=== PATIENT | male | born 1945 | race Caucasian/White ===

== ENCOUNTER 2018-04-13 08:30 | Outpatient (RCR) | payer MEDICARE, OTHER, SELFPAY ==
--- NOTE | 2018-03-28 14:00 | PTTR_ITS ---
DATE: 03/28/18 SUBJECTIVE: Pt states that he is doing ok for the most part and noticing some significant benefit from the stretches. But he does still have some hip pain that he would like addressed. OBJECTIVE: Manual therapy: ([id number]). Pt placed in the (L) side lying position and gently mobilized through the distal and mid ITB with myofascial release techniques utilizing IASTM, long brush strokes working with the grain of the collagen fibers. Then directly over the greater trochanter a star stroke technique utilizing gentle brush strokes with cross grain fiber orientation utilized for decreasing sensitivity with mechanoreceptor stimulation and then more focused posterior greater trochanter approach with deeper fiber penetration for actual muscle tension release. Pt tolerates tx well. Direct treatment time: 25 minutes Total treatment time: 25 minutes
--- NOTE | 2018-04-13 11:59 | PTTR_ITS ---
DATE: 04/13/18 SUBJECTIVE: I am doing okay for the most part. OBJECTIVE: Manual therapy: ([id number]): Patient was placed in supine and guided through gentle traction through the lower extremity. He was then guided through sidelying hip extension coordinated with knee flexion. While maintaining sidelying patient was mobilized with gentle IASTM with down regulation to decrease muscle tension through the TFL, proximal hip rectus femoris utilizing long brush strokes. Gentle cross grain fiber strokes were performed for further desensitization over the posterior surface of the greater trochanter. Patient tolerated treatment well. Direct treatment time: 30 minutes of direct patient care.
== END 2018-04-22 23:59 | disposition home or self-care (01) ==
LOC: PT 08:30
PROVIDERS: PCP Nurse Practitioner; Referring Provider Nurse Practitioner; Visit Provider Nurse Practitioner
DX: M54.31 Sciatica, right side (principal); M79.651 Pain in right thigh; M53.86 Other specified dorsopathies, lumbar region
CPT/HCPCS: 97140

== ENCOUNTER 2018-04-22 11:29 | Outpatient (RCR) | payer SELFPAY | END 2018-04-22 23:59 | disposition home or self-care (01) | LOC: CR 11:29 | PROVIDERS: PCP Nurse Practitioner; Visit Provider Family Medicine | DX: M54.31 Sciatica, right side (principal); M79.651 Pain in right thigh; M53.86 Other specified dorsopathies, lumbar region | CPT/HCPCS: S9472 ==

== ENCOUNTER 2018-05-13 13:13 | Outpatient (RCR) | payer SELFPAY | END 2018-05-22 23:59 | disposition home or self-care (01) | LOC: CR 13:13 | PROVIDERS: PCP Nurse Practitioner; Visit Provider Family Medicine | DX: Z51.89 Encounter for other specified aftercare (principal) | CPT/HCPCS: S9472 ==

== ENCOUNTER 2018-06-09 02:29 | Outpatient (CLI) | payer MEDICARE, OTHER, SELFPAY ==
[2018-06-09 08:46] LABS: Abs Immature Grans 0.03 k/cumm (0.0-0.09); Absolute Basophil Count 0.02 k/cumm (0.0-0.2); Absolute Eosinophil Count 0.11 k/cumm (0.0-0.7); Absolute Lymphocyte Count 1.16 k/cumm (1.2-3.4); Absolute Monocyte Count 0.55 k/cumm (0.11-0.7); Absolute Neutrophil Count 6.12 k/cumm (1.2-6.7); Basophils % 0.3; Eosinophils % 1.4; HCT 33.8 % (40.0-50.0); HGB 11.2 g/dL (13.5-17.5); Immature Grans % 0.4; Lymphocytes % 14.5; Mean Corp. HGB Concentration 33.1 g/dL (32.0-36.0); Mean Corpuscular Hemoglobin 31.2 pg (27.0-33.0); Mean Corpuscular Volume 94.2 fL (80-95); Mean Platelet Volume 9.9 fL (8.0-11.0); Monocytes % 6.9; Neutrophils % 76.5; Platelet Count 206 x1000/uL (130-400); RBC 3.59 m/cumm (4.50-6.00); White Blood Cell Count 7.99 k/cumm (4.4-10.8)
== END 2018-06-09 02:49 ==
PROVIDERS: PCP Nurse Practitioner; Visit Provider Nurse Practitioner Adult Health
DX: K50.919 Crohn's disease, unspecified, with unspecified complications (principal); K62.5 Hemorrhage of anus and rectum
CPT/HCPCS: 36415; 85025

== ENCOUNTER 2018-06-21 08:59 | Outpatient (CLI) | payer MEDICARE, OTHER, SELFPAY ==
[2018-06-21 10:56] LABS: HCT 32.4 % (40.0-50.0); HGB 10.4 g/dL (13.5-17.5); Mean Corp. HGB Concentration 32.1 g/dL (32.0-36.0); Mean Corpuscular Hemoglobin 30.6 pg (27.0-33.0); Mean Corpuscular Volume 95.3 fL (80-95); Mean Platelet Volume 9.4 fL (8.0-11.0); Platelet Count 303 x1000/uL (130-400); RBC Distribution Width 14.9 % (11.8-14.1); White Blood Cell Count 8.18 k/cumm (4.4-10.8)
[2018-06-21 11:46] LABS: Iron 34 ug/dL (50-175); Total Iron Binding Capacity 405 ug/dL (250-450); Transferrin Sat 8 % (20-55)
[2018-06-21 12:03] LABS: Ferritin 29 ng/mL (8-388)
== END 2018-06-21 09:19 ==
PROVIDERS: PCP Nurse Practitioner; Visit Provider Nurse Practitioner
DX: D50.9 Iron deficiency anemia, unspecified (principal); K92.2 Gastrointestinal hemorrhage, unspecified
CPT/HCPCS: 36415; 85027; 82728; 83540; 83550

== ENCOUNTER 2018-06-22 07:00 | Outpatient (RCR) | payer SELFPAY | END 2018-06-22 23:59 | disposition home or self-care (01) | LOC: CR 07:00 | PROVIDERS: PCP Nurse Practitioner; Visit Provider Family Medicine | DX: Z51.89 Encounter for other specified aftercare (principal) | CPT/HCPCS: S9472 ==

== ENCOUNTER 2018-07-22 13:23 | Outpatient (RCR) | payer SELFPAY | END 2018-07-22 23:59 | disposition home or self-care (01) | LOC: CR 13:23 | PROVIDERS: PCP Nurse Practitioner; Visit Provider Family Medicine | DX: Z51.89 Encounter for other specified aftercare (principal) | CPT/HCPCS: S9472 ==

== ENCOUNTER 2018-08-22 12:48 | Outpatient (RCR) | payer SELFPAY | END 2018-08-22 23:59 | disposition home or self-care (01) | LOC: CR 12:48 | PROVIDERS: PCP Nurse Practitioner; Visit Provider Family Medicine | DX: Z51.89 Encounter for other specified aftercare (principal) | CPT/HCPCS: S9472 ==

== ENCOUNTER 2018-08-29 13:17 | Outpatient (RCR) | payer SELFPAY | END 2018-09-22 23:59 | disposition home or self-care (01) | LOC: CR 13:17 | PROVIDERS: PCP Nurse Practitioner; Visit Provider Family Medicine | DX: Z51.89 Encounter for other specified aftercare (principal) | CPT/HCPCS: S9472 ==

== ENCOUNTER 2018-08-31 10:17 | Inpatient (IN) | payer MEDICARE, OTHER, SELFPAY ==
[2018-08-31] VITALS (42 sets, daily range): BP systolic 107–145; BP diastolic 60–116; PULSE 59–79; RESP 12–26; TEMP 36.4–37; O2SAT 89–100
--- NOTE | 2018-08-31 10:43 | W.ED.GENAD ---
Discharge Plan Disposition Patient Disposition: [facility] INPATIENT Condition: Stable Discharge Details Chief Complaint: GI Bleed Clinical Impression: Acute lower GI bleeding Primary Care Provider: Ashley Haro ED Provider: Andre Reeder Home Meds and New Rx's Prescriptions: No Action trazodone 50 mg tablet 50 mg PO PRN Qty: 90 RF: 3 metoprolol succinate 50 mg tablet extended release 24 hr 75 mg PO DAILY Qty: 135 RF: 3 multivitamin [Daily Multi-Vitamin] 1 EACH tablet 1 ea PO DAILY RF: 0 ferrous sulfate 324 MG tablet,delayed release (DR/EC) 324 mg PO BID Qty: 60 RF: 3 mesalamine [Lialda] 1.2 GM tablet,delayed release (DR/EC) 2.4 g PO DAILY RF: 0 clopidogrel [Plavix] 75 MG tablet 75 mg PO DAILY Qty: 90 RF: 3 Culturelle 1 EACH capsule 1 ea PO DAILY Qty: 100 RF: 6 atorvastatin 80 MG tablet 80 mg PO DAILY Qty: 90 RF: 3 bupropion HCl 75 MG tablet 150 mg PO DAILY Qty: 180 RF: 3 isosorbide mononitrate 30 mg tablet extended release 24 hr 30 mg PO DAILY RF: 0 spironolactone 25 mg tablet 12.5 mg PO DAILY Qty: 45 RF: 3 esomeprazole magnesium [Nexium] 20 mg capsule,delayed release(DR/EC) 20 mg PO DAILY RF: 0 furosemide 20 mg tablet 20 mg PO DAILY Qty: 90 RF: 3 tacrolimus 0.1 % ointment 1 applic TP BID RF: 0 Medical Decision Making 73-year-old male with a history of coronary artery disease, paroxysmal atrial fibrillation, as well as recurrent GI bleeds that most recently were diverticular in nature upon admission in May to [facility]. He is scheduled for a watchman's procedure to ablate his left atrial appendage tomorrow at [facility]. He states this morning he awoke and developed 5 episodes of bright bloody stools. Minimal weakness and lightheadedness, denied of a syncopal event. He denies chest pain. He is afebrile with a pulse of 79 and blood pressure 120/76. Exam reveals guaiac positive bloody stool. IV placed, labs, type and screen, screening EKG obtained. She has a normal hematocrit and is not had any further bright red blood per rectum. I discussed the case with on-call cardiology at [facility], Ms. Cait Martinez on the behalf of Dr. Nino who states the patient should have his watchman's procedure scheduled for tomorrow deferred, but she recommends continuing Plavix. Patient is been previously known to Dr Stevens of [facility]; case discused with Dr Holder who recommends admission, trending of the hematocrit, consideration of preparation for colonoscopy as per routine care of lower GI bleed. Medical Records Medical records reviewed: Yes I reviewed the patient's medical records. Lab Data Lab results reviewed: Yes I reviewed the patient's lab results. Laboratory Results - last 24 hr 08/31/18 08/31/18 08/31/18 10:58 10:58 10:58 WBC 8.54 RBC 4.54 Hgb 13.9 Hct 41.7 MCV 91.9 MCH 30.6 MCHC 33.3 RDW 13.5 Plt Count 210 MPV 10.5 Immature Gran % 0.1 Neutrophils % 70.0 Lymphocytes % 18.6 Monocytes % 8.9 Eosinophils % 1.8 Basophils % 0.6 Absolute Neutrophils 5.98 Absolute Lymphocytes 1.59 Absolute Monocytes 0.76 H Absolute Eosinophils 0.15 Absolute Basophils 0.05 PT 10.0 INR 1.0 Sodium 138 Potassium 4.3 Chloride 102 Carbon Dioxide 27.5 Anion Gap 8.5 BUN 28 H Creatinine 1.28 Estimated GFR/1.73 m2 55.09 Glucose 110 H Calcium 9.6 Magnesium 1.7 L Total Bilirubin 0.4 AST 31 ALT 45 Alkaline Phosphatase 122 H Troponin I 0.03 Total Protein 7.4 Albumin 3.5 ECG Data Attestation: I personally reviewed and interpreted this ECG (s) as follows: Interpretation: Normal sinus rhythm, rate of 60, no ST segment elevation. There is T wave inversions present in the lateral leads similar to June 13, 2018 HPI General Mode of arrival: ambulatory. Date/Time Provider Initiated Documentation: 08/31/18 10:20. Limitations to Documentation: no limitations. Information obtained by: patient. History of Present Illness 73 year old M presents to the emergency department with the chief complaint of I am having a GI bleed with 5 bloody stool, described as moderate, and is localized to the abdomen. Patient reports no radiation. Patient started experiencing this hour(s) and it has been intermittent. No relieving factors improve symptom(s), No exacerbating factors reported . Patient notes malaise and weakness; denies chest pain, cough, nausea/vomiting and syncope. Patient did receive the following treatments prior to arrival, none Related Data Home Medications Medication Instructions Recorded Confirmed multivitamin [Daily Multi-Vitamin] 1 ea PO DAILY 07/14/16 08/31/18 ferrous sulfate 324 mg PO BID #60 tab 10/28/16 08/31/18 mesalamine [Lialda] 2.4 g PO DAILY tab-cap 01/08/08/31/18 clopidogrel [Plavix] 75 mg PO DAILY #90 tab 09/21/17 08/31/18 Lactobacillus rhamnosus GG 1 ea PO DAILY #100 tab-cap 12/23/17 08/31/18 [Culturelle] atorvastatin 80 mg PO DAILY #90 tab-cap 03/28/18 08/31/18 bupropion HCl 150 mg PO DAILY #180 tab-cap 03/28/18 08/31/18 trazodone 50 mg tablet 50 mg PO PRN #90 tab 06/15/18 08/31/18 isosorbide mononitrate ER 30 mg 30 mg PO DAILY 06/24/18 08/31/18 tablet,extended release 24 hr metoprolol succinate ER 50 mg 75 mg PO DAILY #135 tab 07/05/18 08/31/18 tablet,extended release 24 hr spironolactone 25 mg tablet 12.5 mg PO DAILY #45 tab-cap 07/06/18 08/31/18 esomeprazole magnesium 20 mg 20 mg PO DAILY cap 07/25/18 08/31/18 capsule,delayed release furosemide 20 mg tablet 20 mg PO DAILY #90 tab 07/28/18 08/31/18 tacrolimus 0.1 % topical ointment 1 applic TP BID 08/02/18 08/31/18 Previous Rx's Medication Instructions Recorded clopidogrel [Plavix] 75 mg PO DAILY #90 tab 09/21/17 Lactobacillus rhamnosus GG 1 ea PO DAILY #100 tab-cap 12/23/17 [Culturelle] atorvastatin 80 mg PO DAILY #90 tab-cap 03/28/18 bupropion HCl 150 mg PO DAILY #180 tab-cap 03/28/18 trazodone 50 mg tablet 50 mg PO PRN #90 tab 06/15/18 metoprolol succinate ER 50 mg 75 mg PO DAILY #135 tab 07/05/18 tablet,extended release 24 hr spironolactone 25 mg tablet 12.5 mg PO DAILY #45 tab-cap 07/06/18 furosemide 20 mg tablet 20 mg PO DAILY #90 tab 07/28/18 Allergies Allergy/AdvReac Type Severity Reaction Status Date / Time morphine AdvReac Severe flashbacks Verified 08/31/18 10:45 from [place] sulfamethoxazole AdvReac Intermediate arthralgia, Verified 08/31/18 10:45 [From Bactrim] myalgia, sweats trimethoprim [From Bactrim] AdvReac Intermediate arthralgia, Verified 08/31/18 10:45 myalgia, sweats NSAIDS (Non-Steroidal AdvReac GI Bleeding Verified 08/31/18 10:45 Anti-Inflamma General Stated Complaint: GI Bleed [place]: 2 Review of Systems Review of Systems 8 systems reviewed and otherwise negative [facility] Surgical History Colonoscopy (01/24/15) Endoscopy Implantation of automatic cardioverter/defibrillator, total system (AICD) (06/22/16) Implantation of automatic cardioverter/defibrillator, total system (AICD) (06/24/16) Pacemaker (07/04/16) Prostate Biopsy with imaging guidance (03/12/14) Replacement of total knee joint (~2007) Video Capsule Endoscopy (03/29/17) cardiac catheterization (06/22/16) paraesophageal diaphramtic hernia repair (02/20/18) Family History Mother Neoplasm Father No problems noted. Sister Alcohol abuse Sister No problems noted. Brother No problems noted. Social History Smoking/Tobacco Use Status: Former Tobacco Use Exam Narrative Exam Narrative: GEN: awake, alert, oriented 3. Pleasant, well groomed, interactive. HEAD: Normocephalic, atraumatic ENT: Mucous membranes moist, oropharynx unremarkable, External ear exam unremarkable EYES: PERRL, EOMI NECK: Full ROM, no HI, no menigismus CHEST/RESP: Nontender, clear to auscultation bilateral, no wheeze/rhonchi/rales CARDIOVASCULAR: RRR, no murmur, rub crow. 2+ Rad pulse bilateral ABDOMEN: Soft, nontender, no mass. +Bowel sounds. Normal rectal tone, bloody stool that is guaiac positive and no masses on rectal exam EXT: Full ROM, no edema, no rash Neuro: Grossly normal neurologic exam, conversant, interactive. Psych: Speech fluent, thoughts congruent, affect normal Course Vital Signs Temperature 36.4 C L 08/31/18 10:21 Pulse 79 08/31/18 10:21 Respiratory Rate 16 08/31/18 10:21 Blood Pressure 120/76 08/31/18 10:21 Pulse Oximetry 95 08/31/18 10:21 Temperature 36.4 C L 08/31/18 10:21 Temperature Source Skin 08/31/18 10:21 Pulse 79 08/31/18 10:21 Respiratory Rate 16 08/31/18 10:21 Blood Pressure 120/76 08/31/18 10:21 Pulse Oximetry 95 08/31/18 10:21 Oxygen Delivery Method Room Air 08/31/18 10:21 Oxygen Flow Rate 0 08/31/18 10:21 Pain Level 0 08/31/18 10:21
--- NOTE | 2018-08-31 10:46 | ED.GENADUL_ITS ---
Discharge Plan Disposition Patient Disposition: [facility] INPATIENT Condition: Stable Discharge Details Chief Complaint: GI Bleed Clinical Impression: Acute lower GI bleeding Primary Care Provider: Ashley Haro ED Provider: Andre Reeder Home Meds and New Rx's Prescriptions: No Action trazodone 50 mg tablet 50 mg PO PRN Qty: 90 RF: 3 metoprolol succinate 50 mg tablet extended release 24 hr 75 mg PO DAILY Qty: 135 RF: 3 multivitamin [Daily Multi-Vitamin] 1 EACH tablet 1 ea PO DAILY RF: 0 ferrous sulfate 324 MG tablet,delayed release (DR/EC) 324 mg PO BID Qty: 60 RF: 3 mesalamine [Lialda] 1.2 GM tablet,delayed release (DR/EC) 2.4 g PO DAILY RF: 0 clopidogrel [Plavix] 75 MG tablet 75 mg PO DAILY Qty: 90 RF: 3 Culturelle 1 EACH capsule 1 ea PO DAILY Qty: 100 RF: 6 atorvastatin 80 MG tablet 80 mg PO DAILY Qty: 90 RF: 3 bupropion HCl 75 MG tablet 150 mg PO DAILY Qty: 180 RF: 3 isosorbide mononitrate 30 mg tablet extended release 24 hr 30 mg PO DAILY RF: 0 spironolactone 25 mg tablet 12.5 mg PO DAILY Qty: 45 RF: 3 esomeprazole magnesium [Nexium] 20 mg capsule,delayed release(DR/EC) 20 mg PO DAILY RF: 0 furosemide 20 mg tablet 20 mg PO DAILY Qty: 90 RF: 3 tacrolimus 0.1 % ointment 1 applic TP BID RF: 0 Medical Decision Making 73-year-old male with a history of coronary artery disease, paroxysmal atrial fibrillation, as well as recurrent GI bleeds that most recently were diverticular in nature upon admission in May to [facility]. He is scheduled for a watchman's procedure to ablate his left atrial appendage tomorrow at [facility]. He states this morning he awoke and developed 5 episodes of bright bloody stools. Minimal weakness and lightheadedness, denied of a syncopal event. He denies chest pain. He is afebrile with a pulse of 79 and blood pressure 120/76. Exam reveals guaiac positive bloody stool. IV placed, labs, type and screen, screening EKG obtained. She has a normal hematocrit and is not had any further bright red blood per rectum. I discussed the case with on-call cardiology at [facility], Ms. Cait Martinez on the behalf of Dr. Nino who states the patient should have his watchman's procedure scheduled for tomorrow deferred, but she recommends continuing Plavix. Patient is been previously known to Dr Stevens of [facility]; case discused with Dr Holder who recommends admission, trending of the hematocrit, consideration of preparation for colonoscopy as per routine care of lower GI bleed. Medical Records Medical records reviewed: Yes I reviewed the patient's medical records. Lab Data Lab results reviewed: Yes I reviewed the patient's lab results. Laboratory Results - last 24 hr 08/31/18 08/31/18 08/31/18 10:58 10:58 10:58 WBC 8.54 RBC 4.54 Hgb 13.9 Hct 41.7 MCV 91.9 MCH 30.6 MCHC 33.3 RDW 13.5 Plt Count 210 MPV 10.5 Immature Gran % 0.1 Neutrophils % 70.0 Lymphocytes % 18.6 Monocytes % 8.9 Eosinophils % 1.8 Basophils % 0.6 Absolute Neutrophils 5.98 Absolute Lymphocytes 1.59 Absolute Monocytes 0.76 H Absolute Eosinophils 0.15 Absolute Basophils 0.05 PT 10.0 INR 1.0 Sodium 138 Potassium 4.3 Chloride 102 Carbon Dioxide 27.5 Anion Gap 8.5 BUN 28 H Creatinine 1.28 Estimated GFR/1.73 m2 55.09 Glucose 110 H Calcium 9.6 Magnesium 1.7 L Total Bilirubin 0.4 AST 31 ALT 45 Alkaline Phosphatase 122 H Troponin I 0.03 Total Protein 7.4 Albumin 3.5 ECG Data Attestation: I personally reviewed and interpreted this ECG (s) as follows: Interpretation: Normal sinus rhythm, rate of 60, no ST segment elevation. There is T wave inversions present in the lateral leads similar to June 13, 2018 HPI General Mode of arrival: ambulatory . Date/Time Provider Initiated Documentation: 08/31/18 10:20 . Limitations to Documentation: no limitations . Information obtained by: patient . History of Present Illness 73 year old M presents to the emergency department with the chief complaint of I am having a GI bleed with 5 bloody stool, described as moderate, and is localized to the abdomen. Patient reports no radiation. Patient started experiencing this hour(s) and it has been intermittent. No relieving factors improve symptom(s), No exacerbating factors reported . Patient notes malaise and weakness; denies chest pain, cough, nausea/vomiting and syncope. Patient did receive the following treatments prior to arrival, none Related Data Home Medications Medication Instructions Recorded Confirmed multivitamin [Daily Multi-Vitamin] 1 ea PO DAILY 07/14/16 08/31/18 ferrous sulfate 324 mg PO BID #60 tab 10/28/16 08/31/18 mesalamine [Lialda] 2.4 g PO DAILY tab-cap 01/08/08/31/18 clopidogrel [Plavix] 75 mg PO DAILY #90 tab 09/21/17 08/31/18 Lactobacillus rhamnosus GG 1 ea PO DAILY #100 tab-cap 12/23/17 08/31/18 [Culturelle] atorvastatin 80 mg PO DAILY #90 tab-cap 03/28/18 08/31/18 bupropion HCl 150 mg PO DAILY #180 tab-cap 03/28/18 08/31/18 trazodone 50 mg tablet 50 mg PO PRN #90 tab 06/15/18 08/31/18 isosorbide mononitrate ER 30 mg 30 mg PO DAILY 06/24/18 08/31/18 tablet,extended release 24 hr metoprolol succinate ER 50 mg 75 mg PO DAILY #135 tab 07/05/18 08/31/18 tablet,extended release 24 hr spironolactone 25 mg tablet 12.5 mg PO DAILY #45 tab-cap 07/06/18 08/31/18 esomeprazole magnesium 20 mg 20 mg PO DAILY cap 07/25/18 08/31/18 capsule,delayed release furosemide 20 mg tablet 20 mg PO DAILY #90 tab 07/28/18 08/31/18 tacrolimus 0.1 % topical ointment 1 applic TP BID 08/02/18 08/31/18 Previous Rx's Medication Instructions Recorded clopidogrel [Plavix] 75 mg PO DAILY #90 tab 09/21/17 Lactobacillus rhamnosus GG 1 ea PO DAILY #100 tab-cap 12/23/17 [Culturelle] atorvastatin 80 mg PO DAILY #90 tab-cap 03/28/18 bupropion HCl 150 mg PO DAILY #180 tab-cap 03/28/18 trazodone 50 mg tablet 50 mg PO PRN #90 tab 06/15/18 metoprolol succinate ER 50 mg 75 mg PO DAILY #135 tab 07/05/18 tablet,extended release 24 hr spironolactone 25 mg tablet 12.5 mg PO DAILY #45 tab-cap 07/06/18 furosemide 20 mg tablet 20 mg PO DAILY #90 tab 07/28/18 Allergies Allergy/AdvReac Type Severity Reaction Status Date / Time morphine AdvReac Severe flashbacks Verified 08/31/18 10:45 from [place] sulfamethoxazole AdvReac Intermediate arthralgia, Verified 08/31/18 10:45 [From Bactrim] myalgia, sweats trimethoprim [From Bactrim] AdvReac Intermediate arthralgia, Verified 08/31/18 10:45 myalgia, sweats NSAIDS (Non-Steroidal AdvReac GI Bleeding Verified 08/31/18 10:45 Anti-Inflamma General Stated Complaint: GI Bleed [place]: 2 Review of Systems Review of Systems 8 systems reviewed and otherwise negative COUNT INCLUDES [facility] Surgical History Colonoscopy (01/24/15) Endoscopy Implantation of automatic cardioverter/defibrillator, total system (AICD) (06/22/16) Implantation of automatic cardioverter/defibrillator, total system (AICD) (06/24/16) Pacemaker (07/04/16) Prostate Biopsy with imaging guidance (03/12/14) Replacement of total knee joint (~2007) Video Capsule Endoscopy (03/29/17) cardiac catheterization (06/22/16) paraesophageal diaphramtic hernia repair (02/20/18) Family History Mother Neoplasm Father No problems noted. Sister Alcohol abuse Sister No problems noted. Brother No problems noted. Social History Smoking/Tobacco Use Status: Former Tobacco Use Exam Narrative Exam Narrative: GEN: awake, alert, oriented 3. Pleasant, well groomed, interactive. HEAD: Normocephalic, atraumatic ENT: Mucous membranes moist, oropharynx unremarkable, External ear exam unremarkable EYES: PERRL, EOMI NECK: Full ROM, no HI, no menigismus CHEST/RESP: Nontender, clear to auscultation bilateral, no wheeze/rhonchi/rales CARDIOVASCULAR: RRR, no murmur, rub crow. 2+ Rad pulse bilateral ABDOMEN: Soft, nontender, no mass. +Bowel sounds. Normal rectal tone, bloody stool that is guaiac positive and no masses on rectal exam EXT: Full ROM, no edema, no rash Neuro: Grossly normal neurologic exam, conversant, interactive. Psych: Speech fluent, thoughts congruent, affect normal Course Vital Signs Temperature 36.4 C L 08/31/18 10:21 Pulse 79 08/31/18 10:21 Respiratory Rate 16 08/31/18 10:21 Blood Pressure 120/76 08/31/18 10:21 Pulse Oximetry 95 08/31/18 10:21 Temperature 36.4 C L 08/31/18 10:21 Temperature Source Skin 08/31/18 10:21 Pulse 79 08/31/18 10:21 Respiratory Rate 16 08/31/18 10:21 Blood Pressure 120/76 08/31/18 10:21 Pulse Oximetry 95 08/31/18 10:21 Oxygen Delivery Method Room Air 08/31/18 10:21 Oxygen Flow Rate 0 08/31/18 10:21 Pain Level 0 08/31/18 10:21
[2018-08-31] MEDS: Normal Saline 1,000 ML 75 ML IV ×2 (10:57→22:13)
[2018-08-31 11:07] LABS: Abs Immature Grans 0.01 k/cumm (0.0-0.09); Absolute Basophil Count 0.05 k/cumm (0.0-0.2); Absolute Eosinophil Count 0.15 k/cumm (0.0-0.7); Absolute Lymphocyte Count 1.59 k/cumm (1.2-3.4); Absolute Monocyte Count 0.76 k/cumm (0.11-0.7); Absolute Neutrophil Count 5.98 k/cumm (1.2-6.7); Basophils % 0.6; Eosinophils % 1.8; HCT 41.7 % (40.0-50.0); HGB 13.9 g/dL (13.5-17.5); Immature Grans % 0.1; Lymphocytes % 18.6; Mean Corp. HGB Concentration 33.3 g/dL (32.0-36.0); Mean Corpuscular Hemoglobin 30.6 pg (27.0-33.0); Mean Corpuscular Volume 91.9 fL (80-95); Mean Platelet Volume 10.5 fL (8.0-11.0); Monocytes % 8.9; Platelet Count 210 x1000/uL (130-400); RBC 4.54 m/cumm (4.50-6.00); RBC Distribution Width 13.5 % (11.8-14.1); White Blood Cell Count 8.54 k/cumm (4.4-10.8)
[2018-08-31 11:22] LABS: ALT 45 U/L (12-78); AST 31 U/L (15-37); Albumin 3.5 g/dL (3.4-5.0); Alkaline Phosphatase 122 U/L (46-116); Anion Gap 8.5 mmol/L (3-11); BUN 28 mg/dL (7-18); Bilirubin, Total 0.4 mg/dL (0.2-1.0); CO2 27.5 mmol/L (21.0-32.0); CREATININE 1.28 mg/dL (0.70-1.30); Calcium 9.6 mg/dL (8.5-10.1); Chloride 102 mmol/L (98-107); Estimated GFR 55.09 (mL/min/1.73m2); Glucose 110 mg/dL (70-100); Magnesium 1.7 mg/dL (1.8-2.4); Potassium 4.3 mmol/L (3.5-5.1); Sodium 138 mmol/L (136-145); Total Protein 7.4 g/dL (6.4-8.2); Troponin I 0.03 ng/mL (0.00-0.06)
--- NOTE | 2018-08-31 13:06 | NUR.NOTE ---
patient reports 3 bowel movements and blood noted bright blood noted Nursing Note:
[2018-08-31 14:25] LABS: HCT 39.4 % (40.0-50.0); HGB 13.1 g/dL (13.5-17.5)
--- NOTE | 2018-08-31 16:18 | NUR.NOTE ---
patient resting comfortably, 6 total bloody stools. Nursing Note:
--- NOTE | 2018-08-31 16:24 | NUR.NOTE ---
report given to Tonya RN to be trasnported to 219 via nurse and monitor Nursing Note:
--- NOTE | 2018-08-31 19:21 | W.PM.HP.N ---
Date of service: 08/31/18 Time of Service: 16:20 Assessment and Plan (1) Diverticular hemorrhage: Current visit: Yes Status: Acute The patient is on plavix as outpatient - this is now on hold. Trend H/H Q8 hrs. 2 units of pRBC's to be held in the blood bank in case the patient does need transfusion. Admit to the ICU. (2) CAD (coronary artery disease): Current visit: No Status: Chronic s/p cardiac arrest/ACID. No evidence for ACS at this time. Hold plavix. Hold antihypertensives overnight. (3) Pulmonary hypertension: Current visit: No Status: Chronic Carefully monitor volume status while on IVF (4) Chronic systolic CHF (congestive heart failure): Current visit: Yes Status: Acute Due to ICMO. EF 46%, s/p AICD. Holding diuretics and hydrating gently as patient is NPO. (5) Paroxysmal atrial fibrillation: Current visit: No Status: Chronic In NSR at this time. Off anticoagulation. Awaiting Watchman's procedure (6) Obstructive sleep apnea syndrome: Current visit: No Status: Chronic May use home CPAP (7) Anemia, iron deficiency: Current visit: No Status: Chronic Continue PO iron (8) Discharge planning issues: Current visit: Yes Status: Acute Full Code (9) DVT prophylaxis: Current visit: Yes Status: Acute Chemical dvt ppx is contraindicated due to GI hemorrhage. History of Present Illness Chief Complaint: Bright red blood per rectum Narrative: Mr Mei is a 73 year old male with PMHx of prior diverticular bleeding, sudden cardiac arrest s/p AICD, paroxysmal afib, no longer on anticoagulation, CAD s/p stents, on plavix, who has had about 10 bowel movements since this morning with stool mixed in with bright red blood per rectum, mostly blood. He was supposed to have a Watchman's procedure done tomorrow because his bleeding had been recurrent, but now this procedure is cancelled. [facility] did not have any beds for the patient, so we were asked to admit this patient to our ICU for further evaluation and care. The patient denies dizziness, chest pain, palpitations, shortness of breath, nausea, vomiting. He describes rumbling/discomfort from this in the abdomen. Review of Systems Review of Systems 12 systems reviewed. Pertinent positives and negatives are as per HPI. [facility] Surgical History Colonoscopy (01/24/15) Endoscopy Implantation of automatic cardioverter/defibrillator, total system (AICD) (06/22/16) Implantation of automatic cardioverter/defibrillator, total system (AICD) (06/24/16) Pacemaker (07/04/16) Prostate Biopsy with imaging guidance (03/12/14) Replacement of total knee joint (~2007) Video Capsule Endoscopy (03/29/17) cardiac catheterization (06/22/16) paraesophageal diaphramtic hernia repair (02/20/18) Family History Mother Neoplasm Father No problems noted. Sister Alcohol abuse Sister No problems noted. Brother No problems noted. Social History Smoking/Tobacco Use Status: Former Tobacco Use Meds Home Medications Medication Instructions Recorded Confirmed Type multivitamin [Daily Multi-Vitamin] 1 ea PO DAILY 07/14/16 08/31/18 History ferrous sulfate 324 mg PO BID #60 tab 10/28/16 08/31/18 History mesalamine [Lialda] 2.4 g PO DAILY tab-cap 01/08/17 08/31/18 History clopidogrel [Plavix] 75 mg PO DAILY #90 tab 09/21/17 08/31/18 Rx Lactobacillus rhamnosus GG 1 ea PO DAILY #100 tab-cap 12/23/17 08/31/18 Rx [Culturelle] atorvastatin 80 mg PO DAILY #90 tab-cap 03/28/18 08/31/18 Rx bupropion HCl 150 mg PO DAILY #180 tab-cap 03/28/18 08/31/18 Rx trazodone 50 mg tablet 50 mg PO PRN #90 tab 06/15/18 08/31/18 Rx isosorbide mononitrate ER 30 mg 30 mg PO DAILY 06/24/18 08/31/18 History tablet,extended release 24 hr metoprolol succinate ER 50 mg 75 mg PO DAILY #135 tab 07/05/18 08/31/18 Rx tablet,extended release 24 hr spironolactone 25 mg tablet 12.5 mg PO DAILY #45 tab-cap 07/06/18 08/31/18 Rx esomeprazole magnesium 20 mg 20 mg PO DAILY cap 07/25/18 08/31/18 History capsule,delayed release furosemide 20 mg tablet 20 mg PO DAILY #90 tab 07/28/18 08/31/18 Rx tacrolimus 0.1 % topical ointment 1 applic TP BID 08/02/18 08/31/18 History Allergies Allergy/AdvReac Type Severity Reaction Status Date / Time morphine AdvReac Severe flashbacks Verified 08/31/18 10:45 from [place] sulfamethoxazole AdvReac Intermediate arthralgia, Verified 08/31/18 10:45 [From Bactrim] myalgia, sweats trimethoprim [From Bactrim] AdvReac Intermediate arthralgia, Verified 08/31/18 10:45 myalgia, sweats NSAIDS (Non-Steroidal AdvReac GI Bleeding Verified 08/31/18 10:45 Anti-Inflamma Exam Narrative Exam Narrative: General: Very pleasant middle aged male, laying comfortably in bed, not pale Neurological: A&Ox3, no focal deficits Psychiatric: appropriate speech pattern/content Skin: no bruises/rashes HEENT: EOMI, MMM, clear oropharynx, no submandibular or cervical lymphadenopathy, no goiter, or JVD Cardiovascular: RRR, no m/r/g Lungs: CTAB Gastrointestinal: abdomen soft, nontender, nondistended Extremities: no edema, clubbing, or cyanosis BLE's Results Imaging Additional studies: EKG done, being faxed to me right now for further review Labs : 08/31/18 14:15 08/31/18 10:58 Laboratory Results - last 24 hr 08/31/18 08/31/18 08/31/18 10:58 10:58 10:58 WBC 8.54 RBC 4.54 Hgb 13.9 Hct 41.7 MCV 91.9 MCH 30.6 MCHC 33.3 RDW 13.5 Plt Count 210 MPV 10.5 Immature Gran % 0.1 Neutrophils % 70.0 Lymphocytes % 18.6 Monocytes % 8.9 Eosinophils % 1.8 Basophils % 0.6 Absolute Neutrophils 5.98 Absolute Lymphocytes 1.59 Absolute Monocytes 0.76 H Absolute Eosinophils 0.15 Absolute Basophils 0.05 PT 10.0 INR 1.0 Sodium 138 Potassium 4.3 Chloride 102 Carbon Dioxide 27.5 Anion Gap 8.5 BUN 28 H Creatinine 1.28 Estimated GFR/1.73 m2 55.09 Glucose 110 H Calcium 9.6 Magnesium 1.7 L Total Bilirubin 0.4 AST 31 ALT 45 Alkaline Phosphatase 122 H Troponin I 0.03 Total Protein 7.4 Albumin 3.5 Patient ABO/Rh Antibody Screen 08/31/18 08/31/18 11:24 14:15 WBC RBC Hgb 13.1 L Hct 39.4 L MCV MCH MCHC RDW Plt Count MPV Immature Gran % Neutrophils % Lymphocytes % Monocytes % Eosinophils % Basophils % Absolute Neutrophils Absolute Lymphocytes Absolute Monocytes Absolute Eosinophils Absolute Basophils PT INR Sodium Potassium Chloride Carbon Dioxide Anion Gap BUN Creatinine Estimated GFR/1.73 m2 Glucose Calcium Magnesium Total Bilirubin AST ALT Alkaline Phosphatase Troponin I Total Protein Albumin Patient ABO/Rh B Negative Antibody Screen Negative Last Vital Signs Temp 36.8 C 08/31/18 19:03 Pulse 63 08/31/18 19:03 Resp 25 H 08/31/18 19:03 BP 139/70 08/31/18 19:03 Pulse Ox 91 L 08/31/18 19:03
[2018-08-31] MEDS: traZODone 50 MG TAB PO (20:44)
[2018-08-31] MEDS: Ferrous Sulfate 325 MG TAB PO (20:44)
[2018-08-31] MEDS: Atorvastatin 40 MG TAB 80 MG PO (20:44)
[2018-09-01] VITALS (53 sets, daily range): BP systolic 92–143; BP diastolic 39–92; PULSE 59–95; RESP 0–27; TEMP 36.1–36.8; O2SAT 88–98
[2018-09-01 00:39] LABS: HCT 32.3 % (40.0-50.0); HGB 10.8 g/dL (13.5-17.5)
--- NOTE | 2018-09-01 07:44 | PDOC.CMIN ---
- If Service Date Differs Date of service: 09/01/18 Time of Service: 07:44 Care Management Initial Assess REASON FOR HOSPITALIZATION:: Diverticular bleeding. PAST MEDICAL HISTORY/PAST SURGICAL HISTORY:: CHF, diverticular hemorrhage, paroxysmal A-fib, Zoon's balanitis, UTI, obstructive sleep apnea, pulmonary HTN, periodic limb movement disorder, paresophageal hernia, morbid obesity, nasal polyp, osteoarthritis , left ventricular systolic dysfunction, chronic pulmonary heart disease, degenerative disc disease, bilateral carpal tunnel syndrome, schaffer esophagus, BPH, unstable angina. Surgical hx: TKA (L) knee, cardiac catherization, colonoscopy, AICD, paraesophageal diaphramtic hernia repair, prostate biopsy, TKA (L) knee. PREVIOUS FUNCTIONAL STATUS/SOCIAL/FAMILY SUPPORTS:: Sharif resides in [place] with his of 49 years, Emily. He and Emily have three children; two daughters and a son who . 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 Sharif was born and raised in the [facility]. He is independent with his ADLs and transportation and is active in the community with many family and friend supports. CURRENT FUNCTIONAL STATUS:: Sharif is lying in bed in the ICU when visits this morning. He is engaged in conversation, makes good eye contact, and is talkative. Sharif is in great spirits and reports that he is feeling better but knows this is the place he needs to be right now. Sharif reports that he was scheduled for cardiac surgery today but ended up here with a bleed. He is teary when talking about his past health issues and the MDs who saved his life at [facility]. He's a joker and has a delightful sense of humor. ADVANCE DIRECTIVES:: On file at [facility]. Health Care Agent: Emily Mei. Has patient been provided with information about the portal?: Yes Did the patient sign up for the portal?: No CODE STATUS:: Full Code INSURANCE COVERAGE / FINANCIAL ISSUES:: CIG[employer], Medicare. CURRENT HOME/COMMUNITY SERVICES/EQUIPMENT:: No current home or community services. CPAP. PRIMARY CARE PHYSICIAN:: Ashley Haro NP. POTENTIAL DISCHARGE NEEDS:: Follow up appointment with PCP. PATIENT/FAMILY EDUCATION NEEDS:: Discharge education, any limitations, and follow up plan of care. Ask Me Three discussion. ANTICIPATED BARRIERS TO DISCHARGE:: No anticipated barriers to discharge. TRANSPORTATION:: Sharif's car is in the parking lot at [facility]; patient will transport himself at discharge. PLAN:: Sharif will discharge home when medically ready per MD. Anticipate patient will discharge with no services and follow up with his PCP. will continue to offer support to patient, family, and care team regarding discharge planning and disposition.
[2018-09-01 07:56] LABS: Abs Immature Grans 0.02 k/cumm (0.0-0.09); Absolute Basophil Count 0.02 k/cumm (0.0-0.2); Absolute Eosinophil Count 0.11 k/cumm (0.0-0.7); Absolute Lymphocyte Count 1.27 k/cumm (1.2-3.4); Absolute Neutrophil Count 6.37 k/cumm (1.2-6.7); Basophils % 0.2; Eosinophils % 1.3; HCT 33.2 % (40.0-50.0); HGB 10.8 g/dL (13.5-17.5); Immature Grans % 0.2; Lymphocytes % 15.1; Mean Corp. HGB Concentration 32.5 g/dL (32.0-36.0); Mean Corpuscular Hemoglobin 30.3 pg (27.0-33.0); Mean Corpuscular Volume 93.3 fL (80-95); Monocytes % 7.2; Platelet Count 168 x1000/uL (130-400); RBC 3.56 m/cumm (4.50-6.00); RBC Distribution Width 13.2 % (11.8-14.1); White Blood Cell Count 8.39 k/cumm (4.4-10.8)
[2018-09-01 07:57] LABS: Anion Gap 9.2 mmol/L (3-11); BUN 22 mg/dL (7-18); CO2 27.8 mmol/L (21.0-32.0); CREATININE 0.94 mg/dL (0.70-1.30); Calcium 8.5 mg/dL (8.5-10.1); Chloride 105 mmol/L (98-107); Glucose 104 mg/dL (70-100); Magnesium 1.7 mg/dL (1.8-2.4); Sodium 142 mmol/L (136-145)
[2018-09-01] MEDS: Multivitamin TAB 1 TAB PO (08:42)
[2018-09-01] MEDS: Lactobacillus Acidophilus CAP 1 CAP PO (08:42)
[2018-09-01] MEDS: Esomeprazole 20 MG CAPCR PO (08:42)
[2018-09-01] MEDS: Isosorbide Mononitrate 30 MG TABCR PO (08:42)
[2018-09-01] MEDS: buPROPion 75 MG TAB 150 MG PO (08:42)
[2018-09-01] MEDS: Ferrous Sulfate 325 MG TAB PO ×2 (08:42→20:39)
[2018-09-01] MEDS: Metoprolol CR 50 MG TABCR 75 MG PO (08:43)
--- NOTE | 2018-09-01 09:55 | PHARADMIT ---
Admission Pharmacy Clinical Review DIVERTICULAR BLEEDING Code Status Full Code Current Weight Wgt-112.3 kg Renally Cleared and Narrow Therapeutic Index Meds CrCl~ 63mL/min Meds-OK QTc Value / Action Taken QTc-414 NA BP Control, Fever BP- 106/61 Tmax- 36.8C Electrolytes reviewed Na- 142 K+4.0 Mag-1.7 DVT Prophylaxis None Bleeding Opiate Usage / Scheduled Bowel Regimen Ordered No No Plt/SCr for Heparin / Enoxaparin Plts- 168 SCr-0.94 INR for Warfarin inr-1.0 H/H stable, WBC/Bands H&H- 10.8/33.2 WBC- 8.39 Antibiotic appropriateness none Cultures and Sensitivities none Surgical ABX d/c within 24 hr NA DM control / Insulin Dosing BG- 104 Heart Failure (Check EF%) (ANAHY's, B-Block, Diuretics) Imdur, Toprol-XL, IV to PO Switch No Home Meds Reviewed Yes Home Meds Not Ordered Apixaban, Plavix, Lasix, Spironolactone, Comments PatOwn Tacrolimus Oint
--- NOTE | 2018-09-01 11:18 | CHAPLAIN ---
Sharif was sitting up watching tv when I visited. He told me about his internal bleeding and said he has dealt with at other times, and he isn't nervous about it. During our conversation, he tells me again about the heart attack he had two years ago in May when he was at physical therapy and he credits the staff there with saving his life. He was transported from [facility] to [facility] and he credits all the physicians who cared for him with giving him two more years of life, so far. Sharif is very vocal about his appreciation and gratitude for the people in his life, and returns to the physical therapy office each year on the anniversary of his heart attack to thank them. He still is emotional when retelling the story to me. Sharif's said he suggested to his Emily, that she stay home until after he sees the doctor today, because she worries, Sharif said. But he expects he may be discharged today.
--- NOTE | 2018-09-01 11:25 | INITIAL_ITS ---
- If Service Date Differs Date of service: 09/01/18 Time of Service: 07:44 Care Management Initial Assess REASON FOR HOSPITALIZATION:: Diverticular bleeding. PAST MEDICAL HISTORY/PAST SURGICAL HISTORY:: CHF, diverticular hemorrhage, paroxysmal A-fib, Zoon's balanitis, UTI, obstructive sleep apnea, pulmonary HTN, periodic limb movement disorder, paresophageal hernia, morbid obesity, nasal polyp, osteoarthritis , left ventricular systolic dysfunction, chronic pulmonary heart disease, degenerative disc disease, bilateral carpal tunnel syndrome, schaffer esophagus, BPH, unstable angina. Surgical hx: TKA (L) knee, cardiac catherization, colonoscopy, AICD, paraesophageal diaphramtic hernia repair, prostate biopsy, TKA (L) knee. PREVIOUS FUNCTIONAL STATUS/SOCIAL/FAMILY SUPPORTS:: Sharif resides in [place] with his of 49 years, Emily. He and Emily have three children; two daughters and a son who . 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 Sharif was born and raised in the [facility]. He is independent with his ADLs and transportation and is active in the community with many family and friend supports. CURRENT FUNCTIONAL STATUS:: Sharif is lying in bed in the ICU when visits this morning. He is engaged in conversation, makes good eye contact, and is talkative. Sharif is in great spirits and reports that he is feeling better but knows this is the place he needs to be right now. Sharif reports that he was scheduled for cardiac surgery today but ended up here with a bleed. He is teary when talking about his past health issues and the MDs who saved his life at [facility]. He's a joker and has a delightful sense of humor. ADVANCE DIRECTIVES:: On file at [facility]. Health Care Agent: Emily Mei. Has patient been provided with information about the portal?: Yes Did the patient sign up for the portal?: No CODE STATUS:: Full Code INSURANCE COVERAGE / FINANCIAL ISSUES:: CIGNA, Medicare. CURRENT HOME/COMMUNITY SERVICES/EQUIPMENT:: No current home or community services. CPAP. PRIMARY CARE PHYSICIAN:: Ashley Haro NP. POTENTIAL DISCHARGE NEEDS:: Follow up appointment with PCP. PATIENT/FAMILY EDUCATION NEEDS:: Discharge education, any limitations, and follow up plan of care. Ask Me Three discussion. ANTICIPATED BARRIERS TO DISCHARGE:: No anticipated barriers to discharge. TRANSPORTATION:: Sharif's car is in the parking lot at [facility]; patient will transport himself at discharge. PLAN:: Sharif will discharge home when medically ready per MD. Anticipate patient will discharge with no services and follow up with his PCP. will continue to offer support to patient, family, and care team regarding discharge planning and disposition.
[2018-09-01] MEDS: Normal Saline 1,000 ML 75 ML IV (11:37)
[2018-09-01] MEDS: MAGNESIUM SULFATE 2 GM/50 ML BAG IVPB (11:38)
--- NOTE | 2018-09-01 13:11 | W.SURGCON ---
Date of service: 09/01/18 Time of Service: 13:11 Assessment and Plan (1) GI (gastrointestinal bleed): Start date: 09/01/18 Start time: 13:14 Current visit: Yes Status: Chronic Patient on Wednesday had bright red blood per rectum and followed by tarry stools which has happened to him on multiple occasions. Patient has had multiple workup at [facility] with upper endoscopy colonoscopy and bleeding scans which have not been able to localize the source of his GI bleed. Patient today presents with a normal H&H and no transfusions that were needed he is hemodynamically stable and currently is in no distress. Patient complains of no abdominal pain and believe would not benefit from any additional intervention surgically at this institution. Would suggest a provocative angiogram for this patient knowing that they have not been able to localize the source of bleeding in the past. Case discussed in detail with the medical doctor as well as patient. Will sign off and any additional need for surgical consultation please call. History of Present Illness Chief Complaint: BRBPR Narrative: Patient has had multiple episodes of lower GI bleed with extensive workup by [facility] both upper and lower endoscopy colonoscopy as well as capsule endoscopy with nuclear medicine studies which have not localized any source of bleeding. Review of Systems Constitutional Reports as per HPI Gastrointestinal Reports as per HPI and Reports system reviewed and no additional complaints, except as docu [facility] Surgical History Colonoscopy (01/24/15) Endoscopy Implantation of automatic cardioverter/defibrillator, total system (AICD) (06/22/16) Implantation of automatic cardioverter/defibrillator, total system (AICD) (06/24/16) Pacemaker (07/04/16) Prostate Biopsy with imaging guidance (03/12/14) Replacement of total knee joint (~2007) Video Capsule Endoscopy (03/29/17) cardiac catheterization (06/22/16) paraesophageal diaphramtic hernia repair (02/20/18) Family History Mother Neoplasm Father No problems noted. Sister Alcohol abuse Sister No problems noted. Brother No problems noted. Social History Smoking/Tobacco Use Status: Former Tobacco Use Exam Const General: cooperative Nutritional Appearance: obese Orientation: alert, awake and oriented x3 GI Inspection: normal to inspection Palpation: soft Percussion: normal to percussion Auscultation: normal bowel sounds Results Last Vital Signs Temp 36.7 C 09/01/18 03:30 Pulse 62 09/01/18 08:00 Resp 22 09/01/18 08:00 BP 136/58 L 09/01/18 08:00 Pulse Ox 90 L 09/01/18 08:00 Labs : 09/01/18 06:45 09/01/18 06:45 Laboratory Results - last 24 hr 08/31/18 08/31/18 09/01/18 11:24 14:15 00:25 WBC RBC Hgb 13.1 L 10.8 L D Hct 39.4 L 32.3 L MCV MCH MCHC RDW Plt Count MPV Immature Gran % Neutrophils % Lymphocytes % Monocytes % Eosinophils % Basophils % Absolute Neutrophils Absolute Lymphocytes Absolute Monocytes Absolute Eosinophils Absolute Basophils Sodium Potassium Chloride Carbon Dioxide Anion Gap BUN Creatinine Estimated GFR/1.73 m2 Glucose Calcium Magnesium Patient ABO/Rh B Negative Antibody Screen Negative Crossmatch See Detail 09/01/18 09/01/18 06:45 06:45 WBC 8.39 RBC 3.56 L Hgb 10.8 L Hct 33.2 L MCV 93.3 MCH 30.3 MCHC 32.5 RDW 13.2 Plt Count 168 MPV 11.0 Immature Gran % 0.2 Neutrophils % 76.0 Lymphocytes % 15.1 Monocytes % 7.2 Eosinophils % 1.3 Basophils % 0.2 Absolute Neutrophils 6.37 Absolute Lymphocytes 1.27 Absolute Monocytes 0.60 Absolute Eosinophils 0.11 Absolute Basophils 0.02 Sodium 142 Potassium 4.0 Chloride 105 Carbon Dioxide 27.8 Anion Gap 9.2 BUN 22 H D Creatinine 0.94 Estimated GFR/1.73 m2 >= 60.00 Glucose 104 H Calcium 8.5 Magnesium 1.7 L Patient ABO/Rh Antibody Screen Crossmatch
--- NOTE | 2018-09-01 13:17 | SCONE_ITS ---
Date of service: 09/01/18 Time of Service: 13:11 Assessment and Plan (1) GI (gastrointestinal bleed): Start date: 09/01/18 Start time: 13:14 Current visit: Yes Status: Chronic Patient on Wednesday had bright red blood per rectum and followed by tarry stools which has happened to him on multiple occasions. Patient has had m ultiple workup at [facility] with upper endoscopy colonoscopy and bleeding scans which have not been able to localize the source of his GI bleed. Patient today presents with a normal H&H and no transfusions that were needed he is hemodynamically stable and currently is in no distress. Patient complains of no abdominal pain and believe would not benefit from any additional intervention surgically at this institution. Would suggest a provocative angiogram for this patient knowing that they have not been able to localize the source of bleeding in the past. Case discussed in detail with the medical doctor as well as patient. Will sign off and any additional need for surgical consultation please call. History of Present Illness Chief Complaint: BRBPR Narrative: Patient has had multiple episodes of lower GI bleed with extensive workup by [facility] both upper and lower endoscopy colonoscopy as well as capsule endoscopy with nuclear medicine studies which have not localized any source of bleeding. Review of Systems Constitutional Reports as per HPI Gastrointestinal Reports as per HPI and Reports system reviewed and no additional complaints, except as docu [facility] Surgical History Colonoscopy (01/24/15) Endoscopy Implantation of automatic cardioverter/defibrillator, total system (AICD) (06/22/16) Implantation of automatic cardioverter/defibrillator, total system (AICD) (06/24/16) Pacemaker (07/04/16) Prostate Biopsy with imaging guidance (03/12/14) Replacement of total knee joint (~2007) Video Capsule Endoscopy (03/29/17) cardiac catheterization (06/22/16) paraesophageal diaphramtic hernia repair (02/20/18) Family History Mother Neoplasm Father No problems noted. Sister Alcohol abuse Sister No problems noted. Brother No problems noted. Social History Smoking/Tobacco Use Status: Former Tobacco Use Exam Const General: cooperative Nutritional Appearance: obese Orientation: alert, awake and oriented x3 GI Inspection: normal to inspection Palpation: soft Percussion: normal to percussion Auscultation: normal bowel sounds Results Last Vital Signs Temp 36.7 C 09/01/18 03:30 Pulse 62 09/01/18 08:00 Resp 22 09/01/18 08:00 BP 136/58 L 09/01/18 08:00 Pulse Ox 90 L 09/01/18 08:00 Labs : 09/01/18 06:45 09/01/18 06:45 Laboratory Results - last 24 hr 08/31/18 08/31/18 09/01/18 11:24 14:15 00:25 WBC RBC Hgb 13.1 L 10.8 L D Hct 39.4 L 32.3 L MCV MCH MCHC RDW Plt Count MPV Immature Gran % Neutrophils % Lymphocytes % Monocytes % Eosinophils % Basophils % Absolute Neutrophils Absolute Lymphocytes Absolute Monocytes Absolute Eosinophils Absolute Basophils Sodium Potassium Chloride Carbon Dioxide Anion Gap BUN Creatinine Estimated GFR/1.73 m2 Glucose Calcium Magnesium Patient ABO/Rh B Negative Antibody Screen Negative Crossmatch See Detail 09/01/18 09/01/18 06:45 06:45 WBC 8.39 RBC 3.56 L Hgb 10.8 L Hct 33.2 L MCV 93.3 MCH 30.3 MCHC 32.5 RDW 13.2 Plt Count 168 MPV 11.0 Immature Gran % 0.2 Neutrophils % 76.0 Lymphocytes % 15.1 Monocytes % 7.2 Eosinophils % 1.3 Basophils % 0.2 Absolute Neutrophils 6.37 Absolute Lymphocytes 1.27 Absolute Monocytes 0.60 Absolute Eosinophils 0.11 Absolute Basophils 0.02 Sodium 142 Potassium 4.0 Chloride 105 Carbon Dioxide 27.8 Anion Gap 9.2 BUN 22 H D Creatinine 0.94 Estimated GFR/1.73 m2 >= 60.00 Glucose 104 H Calcium 8.5 Magnesium 1.7 L Patient ABO/Rh Antibody Screen Crossmatch
--- NOTE | 2018-09-01 16:54 | W.PM.PROGNOT ---
Date of Service Date of service: 09/01/18 Time of Service: 15:00 Assessment and Plan (1) Melena: Current visit: Yes Status: Acute Discussed with [facility] (Dr Stevens, Dr Barron), who feel the patient should be transferred to [facility] for endoscopy. Patient is made NPO in anticipation. Continue PPI IV BID. Trend H/H. (2) Diverticular hemorrhage: Current visit: No Status: Resolved At this time, the bleeding appears to be mostly upper. Continue to monitor H/H. Transferred out of ICU. (3) CAD (coronary artery disease): Current visit: No Status: Chronic s/p cardiac arrest/AICD. No evidence for ACS at this time. Continue to hold plavix. 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 EF 46%, s/p AICD. Holding diuretics (6) Paroxysmal atrial fibrillation: Current visit: No Status: Chronic In NSR at this time. Off anticoagulation. Awaiting Watchman's procedure (as outpatient; postponed) (7) Obstructive sleep apnea syndrome: Current visit: No Status: Chronic May use home CPAP (8) Anemia, iron deficiency: Current visit: No Status: Chronic Continue PO iron. H/H down from 13 to 10, but stable throughout the day. Not requiring transfusion so far. (9) Discharge planning issues: Current visit: No Status: Acute Full Code Will require transfer to [facility] this weekend for an EGD (10) DVT prophylaxis: Current visit: No Status: Acute Chemical dvt ppx is contraindicated due to GI hemorrhage. Subjective Interval history since last seen: Feels much better today. Denies dizziness, chest pain, shortness of breath, nausea, vomiting, abdominal pain. No bloody BM's recorded since 3 pm yesterday. However, BM's are now black, still hemoccult positive. I discussed the case with [facility] (Dr Stevens and Dr Barron). The patient cannot be discharged home without at least an EGD and, per them, should be transferred to [facility]. This is being arranged. The hospitalist is instructed to contact [facility] in am to find out bed status. Exam Narrative Exam Narrative: General: Very pleasant middle aged male, sitting in a chair, in a great mood Neurological: A&Ox3, no focal deficits HEENT: EOMI, MMM Cardiovascular: RRR, no m/r/g Lungs: CTAB Gastrointestinal: abdomen soft, nontender, nondistended Extremities: no edema, clubbing, or cyanosis BLE's Objective Objective Clinical Data: Abnormal lab results 08/31/18 09/01/18 09/01/18 Range/Units 11:24 00:25 06:45 RBC 3.56 L (4.50-6.00) m/cumm Hgb 10.8 L D 10.8 L (13.5-17.5) g/dL Hct 32.3 L 33.2 L (40.0-50.0) % BUN (7-18) mg/dL Glucose (70-100) mg/dL Magnesium (1.8-2.4) mg/dL Crossmatch See Detail 09/01/18 Range/Units 06:45 RBC (4.50-6.00) m/cumm Hgb (13.5-17.5) g/dL Hct (40.0-50.0) % BUN 22 H D (7-18) mg/dL Glucose 104 H (70-100) mg/dL Magnesium 1.7 L (1.8-2.4) mg/dL Crossmatch Vital Signs Temperature 36.8 C 09/01/18 12:51 Temperature Source Temporal Artery Scan 09/01/18 12:51 Pulse 70 09/01/18 12:49 Pulse 66 09/01/18 14:00 Respiratory Rate 17 09/01/18 14:00 Respiratory Effort Non-Labored 09/01/18 12:51 Respiratory Depth Normal 09/01/18 12:51 Respiratory Pattern Normal 09/01/18 12:51 Blood Pressure 135/57 L 09/01/18 12:49 Blood Pressure Mean 77 09/01/18 12:49 Blood Pressure Position Sitting 09/01/18 12:51 Pulse Oximetry 98 09/01/18 12:51 Oxygen Delivery Method Room Air 09/01/18 12:51 Oxygen Flow Rate 0 09/01/18 12:51 Pain Level 0 09/01/18 12:51 Intake & Output 08/31/18 09/01/18 09/01/18 23:59 11:59 23:59 Intake Total 845 / 845 1000 / 1268.75 268.75 / 1268.75 Output Total 200 / 200 600 / 950 350 / 950 Balance 645 / 645 400 / 318.75 -81.25 / 318.75 Weight 112.8 kg 112.3 kg Intake: IV 845 / 845 1000 / 1218.75 218.75 / 1218.75 Oral 50 / 50 Output: Urine 100 / 100 600 / 800 200 / 800 Stool 100 / 100 150 / 150 Other: Urine Color Yellow Urine Appearance Clear Urine Odor None Comment mixed with bloody stool no void at this time mixed with stool Stool Occult Blood Positive Positive Positive Stool Size Moderate Moderate Small Stool Characteristics Liquid Soft Soft Bloody Formed Black Voiding Methods Bedside Commode Laboratory Results WBC 8.39 k/cumm (4.4-10.8) 09/01/18 06:45 RBC 3.56 m/cumm (4.50-6.00) L 09/01/18 06:45 Hgb 10.8 g/dL (13.5-17.5) L 09/01/18 06:45 Hct 33.2 % (40.0-50.0) L 09/01/18 06:45 MCV 93.3 fL (80-95) 09/01/18 06:45 MCH 30.3 pg (27.0-33.0) 09/01/18 06:45 MCHC 32.5 g/dL (32.0-36.0) 09/01/18 06:45 RDW 13.2 % (11.8-14.1) 09/01/18 06:45 Plt Count 168 x1000/uL (130-400) 09/01/18 06:45 MPV 11.0 fL (8.0-11.0) 09/01/18 06:45 Immature Gran % 0.2 09/01/18 06:45 Neutrophils % 76.0 09/01/18 06:45 Lymphocytes % 15.1 09/01/18 06:45 Monocytes % 7.2 09/01/18 06:45 Eosinophils % 1.3 09/01/18 06:45 Basophils % 0.2 09/01/18 06:45 Absolute Neutrophils 6.37 k/cumm (1.2-6.7) 09/01/18 06:45 Absolute Lymphocytes 1.27 k/cumm (1.2-3.4) 09/01/18 06:45 Absolute Monocytes 0.60 k/cumm (0.11-0.7) 09/01/18 06:45 Absolute Eosinophils 0.11 k/cumm (0.0-0.7) 09/01/18 06:45 Absolute Basophils 0.02 k/cumm (0.0-0.2) 09/01/18 06:45 PT 10.0 sec (9.3-11.0) 08/31/18 10:58 INR 1.0 (0.9-1.1) 08/31/18 10:58 Sodium 142 mmol/L (136-145) 09/01/18 06:45 Potassium 4.0 mmol/L (3.5-5.1) 09/01/18 06:45 Chloride 105 mmol/L (98-107) 09/01/18 06:45 Carbon Dioxide 27.8 mmol/L (21.0-32.0) 09/01/18 06:45 Anion Gap 9.2 mmol/L (3-11) 09/01/18 06:45 BUN 22 mg/dL (7-18) H D 09/01/18 06:45 Creatinine 0.94 mg/dL (0.70-1.30) 09/01/18 06:45 Estimated GFR/1.73 m2 >= 60.00 (mL/min/1.73m2) 09/01/18 06:45 Glucose 104 mg/dL (70-100) H 09/01/18 06:45 Calcium 8.5 mg/dL (8.5-10.1) 09/01/18 06:45 Magnesium 1.7 mg/dL (1.8-2.4) L 09/01/18 06:45 Total Bilirubin 0.4 mg/dL (0.2-1.0) 08/31/18 10:58 AST 31 U/L (15-37) 08/31/18 10:58 ALT 45 U/L (12-78) 08/31/18 10:58 Alkaline Phosphatase 122 U/L (46-116) H 08/31/18 10:58 Troponin I 0.03 ng/mL (0.00-0.06) 08/31/18 10:58 Total Protein 7.4 g/dL (6.4-8.2) 08/31/18 10:58 Albumin 3.5 g/dL (3.4-5.0) 08/31/18 10:58 Patient ABO/Rh B Negative 08/31/18 11:24 Antibody Screen Negative 08/31/18 11:24 Crossmatch See Detail 08/31/18 11:24
--- NOTE | 2018-09-01 17:07 | PGE_ITS ---
Date of Service Date of service: 09/01/18 Time of Service: 15:00 Assessment and Plan (1) Melena: Current visit: Yes Status: Acute Discussed with [facility] (Dr Stevens, Dr Barron), who feel the patient should be transferred to [facility] for endoscopy. Patient is made NPO in anticipation. Continue PPI IV BID. Trend H/H. (2) Diverticular hemorrhage: Current visit: No Status: Resolved At this time, the bleeding appears to be mostly upper. Continue to monitor H/H. Transferred out of ICU. (3) CAD (coronary artery disease): Current visit: No Status: Chronic s/p cardiac arrest/AICD. No evidence for ACS at this time. Continue to hold plavix. 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 EF 46%, s/p AICD. Holding diuretics (6) Paroxysmal atrial fibrillation: Current visit: No Status: Chronic In NSR at this time. Off anticoagulation. Awaiting Watchman's procedure (as outpatient; postponed) (7) Obstructive sleep apnea syndrome: Current visit: No Status: Chronic May use home CPAP (8) Anemia, iron deficiency: Current visit: No Status: Chronic Continue PO iron. H/H down from 13 to 10, but stable throughout the day. Not requiring transfusion so far. (9) Discharge planning issues: Current visit: No Status: Acute Full Code Will require transfer to [facility] this weekend for an EGD (10) DVT prophylaxis: Current visit: No Status: Acute Chemical dvt ppx is contraindicated due to GI hemorrhage. Subjective Interval history since last seen: Feels much better today. Denies dizziness, chest pain, shortness of breath, nausea, vomiting, abdominal pain. No bloody BM's recorded since 3 pm yesterday. However, BM's are now black, still hemoccult positive. I discussed the case with [facility] (Dr Stevens and Dr Barron). The patient cannot be discharged home without at least an EGD and, per them, should be transferred to [facility]. This is being arranged. The hospitalist is instructed to contact [facility] in am to find out bed status. Exam Narrative Exam Narrative: General: Very pleasant middle aged male, sitting in a chair, in a great mood Neurological: A&Ox3, no focal deficits HEENT: EOMI, MMM Cardiovascular: RRR, no m/r/g Lungs: CTAB Gastrointestinal: abdomen soft, nontender, nondistended Extremities: no edema, clubbing, or cyanosis BLE's Objective Objective Clinical Data: Abnormal lab results 08/31/18 09/01/18 09/01/18 Range/Units 11:24 00:25 06:45 RBC 3.56 L (4.50-6.00) m/cumm Hgb 10.8 L D 10.8 L (13.5-17.5) g/dL Hct 32.3 L 33.2 L (40.0-50.0) % BUN (7-18) mg/dL Glucose (70-100) mg/dL Magnesium (1.8-2.4) mg/dL Crossmatch See Detail 09/01/18 Range/Units 06:45 RBC (4.50-6.00) m/cumm Hgb (13.5-17.5) g/dL Hct (40.0-50.0) % BUN 22 H D (7-18) mg/dL Glucose 104 H (70-100) mg/dL Magnesium 1.7 L (1.8-2.4) mg/dL Crossmatch Vital Signs Temperature 36.8 C 09/01/18 12:51 Temperature Source Temporal Artery Scan 09/01/18 12:51 Pulse 70 09/01/18 12:49 Pulse 66 09/01/18 14:00 Respiratory Rate 17 09/01/18 14:00 Respiratory Effort Non-Labored 09/01/18 12:51 Respiratory Depth Normal 09/01/18 12:51 Respiratory Pattern Normal 09/01/18 12:51 Blood Pressure 135/57 L 09/01/18 12:49 Blood Pressure Mean 77 09/01/18 12:49 Blood Pressure Position Sitting 09/01/18 12:51 Pulse Oximetry 98 09/01/18 12:51 Oxygen Delivery Method Room Air 09/01/18 12:51 Oxygen Flow Rate 0 09/01/18 12:51 Pain Level 0 09/01/18 12:51 Intake & Output 08/31/18 09/01/18 09/01/18 23:59 11:59 23:59 Intake Total 845 / 845 1000 / 1268.75 268.75 / 1268.75 Output Total 200 / 200 600 / 950 350 / 950 Balance 645 / 645 400 / 318.75 -81.25 / 318.75 Weight 112.8 kg 112.3 kg Intake: IV 845 / 845 1000 / 1218.75 218.75 / 1218.75 Oral 50 / 50 Output: Urine 100 / 100 600 / 800 200 / 800 Stool 100 / 100 150 / 150 Other: Urine Color Yellow Urine Appearance Clear Urine Odor None Comment mixed with bloody stool no void at this time mixed with stool Stool Occult Blood Positive Positive Positive Stool Size Moderate Moderate Small Stool Characteristics Liquid Soft Soft Bloody Formed Black Voiding Methods Bedside Commode Laboratory Results WBC 8.39 k/cumm (4.4-10.8) 09/01/18 06:45 RBC 3.56 m/cumm (4.50-6.00) L 09/01/18 06:45 Hgb 10.8 g/dL (13.5-17.5) L 09/01/18 06:45 Hct 33.2 % (40.0-50.0) L 09/01/18 06:45 MCV 93.3 fL (80-95) 09/01/18 06:45 MCH 30.3 pg (27.0-33.0) 09/01/18 06:45 MCHC 32.5 g/dL (32.0-36.0) 09/01/18 06:45 RDW 13.2 % (11.8-14.1) 09/01/18 06:45 Plt Count 168 x1000/uL (130-400) 09/01/18 06:45 MPV 11.0 fL (8.0-11.0) 09/01/18 06:45 Immature Gran % 0.2 09/01/18 06:45 Neutrophils % 76.0 09/01/18 06:45 Lymphocytes % 15.1 09/01/18 06:45 Monocytes % 7.2 09/01/18 06:45 Eosinophils % 1.3 09/01/18 06:45 Basophils % 0.2 09/01/18 06:45 Absolute Neutrophils 6.37 k/cumm (1.2-6.7) 09/01/18 06:45 Absolute Lymphocytes 1.27 k/cumm (1.2-3.4) 09/01/18 06:45 Absolute Monocytes 0.60 k/cumm (0.11-0.7) 09/01/18 06:45 Absolute Eosinophils 0.11 k/cumm (0.0-0.7) 09/01/18 06:45 Absolute Basophils 0.02 k/cumm (0.0-0.2) 09/01/18 06:45 PT 10.0 sec (9.3-11.0) 08/31/18 10:58 INR 1.0 (0.9-1.1) 08/31/18 10:58 Sodium 142 mmol/L (136-145) 09/01/18 06:45 Potassium 4.0 mmol/L (3.5-5.1) 09/01/18 06:45 Chloride 105 mmol/L (98-107) 09/01/18 06:45 Carbon Dioxide 27.8 mmol/L (21.0-32.0) 09/01/18 06:45 Anion Gap 9.2 mmol/L (3-11) 09/01/18 06:45 BUN 22 mg/dL (7-18) H D 09/01/18 06:45 Creatinine 0.94 mg/dL (0.70-1.30) 09/01/18 06:45 Estimated GFR/1.73 m2 >= 60.00 (mL/min/1.73m2) 09/01/18 06:45 Glucose 104 mg/dL (70-100) H 09/01/18 06:45 Calcium 8.5 mg/dL (8.5-10.1) 09/01/18 06:45 Magnesium 1.7 mg/dL (1.8-2.4) L 09/01/18 06:45 Total Bilirubin 0.4 mg/dL (0.2-1.0) 08/31/18 10:58 AST 31 U/L (15-37) 08/31/18 10:58 ALT 45 U/L (12-78) 08/31/18 10:58 Alkaline Phosphatase 122 U/L (46-116) H 08/31/18 10:58 Troponin I 0.03 ng/mL (0.00-0.06) 08/31/18 10:58 Total Protein 7.4 g/dL (6.4-8.2) 08/31/18 10:58 Albumin 3.5 g/dL (3.4-5.0) 08/31/18 10:58 Patient ABO/Rh B Negative 08/31/18 11:24 Antibody Screen Negative 08/31/18 11:24 Crossmatch See Detail 08/31/18 11:24
[2018-09-01] MEDS: Atorvastatin 40 MG TAB 80 MG PO (20:39)
[2018-09-01] MEDS: traZODone 50 MG TAB PO (20:40)
[2018-09-02] VITALS (33 sets, daily range): BP systolic 91–146; BP diastolic 41–77; PULSE 59–78; RESP 0–30; TEMP 36–36.6; O2SAT 90–97
[2018-09-02 07:30] LABS: Abs Immature Grans 0.01 k/cumm (0.0-0.09); Absolute Basophil Count 0.02 k/cumm (0.0-0.2); Absolute Eosinophil Count 0.13 k/cumm (0.0-0.7); Absolute Lymphocyte Count 0.92 k/cumm (1.2-3.4); Absolute Monocyte Count 0.62 k/cumm (0.11-0.7); Absolute Neutrophil Count 3.97 k/cumm (1.2-6.7); Basophils % 0.4; Eosinophils % 2.3; HCT 31.2 % (40.0-50.0); HGB 10.1 g/dL (13.5-17.5); Immature Grans % 0.2; Lymphocytes % 16.2; Mean Corp. HGB Concentration 32.4 g/dL (32.0-36.0); Mean Corpuscular Hemoglobin 30.2 pg (27.0-33.0); Mean Corpuscular Volume 93.4 fL (80-95); Mean Platelet Volume 10.9 fL (8.0-11.0); Monocytes % 10.9; Platelet Count 156 x1000/uL (130-400); RBC 3.34 m/cumm (4.50-6.00); RBC Distribution Width 13.2 % (11.8-14.1); White Blood Cell Count 5.67 k/cumm (4.4-10.8)
[2018-09-02 07:35] LABS: Anion Gap 6.8 mmol/L (3-11); BUN 15 mg/dL (7-18); CO2 29.2 mmol/L (21.0-32.0); CREATININE 0.95 mg/dL (0.70-1.30); Calcium 8.4 mg/dL (8.5-10.1); Chloride 105 mmol/L (98-107); Glucose 106 mg/dL (70-100); Potassium 3.7 mmol/L (3.5-5.1); Sodium 141 mmol/L (136-145)
[2018-09-02] MEDS: Esomeprazole 20 MG CAPCR PO (09:44)
[2018-09-02] MEDS: Ferrous Sulfate 325 MG TAB PO ×2 (09:45→21:00)
[2018-09-02] MEDS: Lactobacillus Acidophilus CAP 1 CAP PO (09:45)
[2018-09-02] MEDS: Metoprolol CR 50 MG TABCR 75 MG PO (09:45)
[2018-09-02] MEDS: Multivitamin TAB 1 TAB PO (09:45)
[2018-09-02] MEDS: buPROPion 75 MG TAB 150 MG PO (09:45)
[2018-09-02] MEDS: Isosorbide Mononitrate 30 MG TABCR PO (09:45)
[2018-09-02 10:43] LABS: Iron 53 ug/dL (50-175); Total Iron Binding Capacity 283 ug/dL (250-450); Transferrin Sat 19 % (20-55)
[2018-09-02 10:57] LABS: Ferritin 108 ng/mL (8-388)
[2018-09-02] MEDS: Pantoprazole 40 MG VIAL IVP ×2 (14:53→21:00)
[2018-09-02] MEDS: Normal Saline Flush 10 ML SYR IVP (14:53)
[2018-09-02 14:55] LABS: HGB 10.5 g/dL (13.5-17.5)
--- NOTE | 2018-09-02 15:16 | NUR.NOTE ---
Nursing Note: 1515: pt transferred from icu 219 to ms 217. pt ambulatory from icu to ms. pt alert/oriented. please see vs intervention.
[2018-09-02] MEDS: Atorvastatin 40 MG TAB 80 MG PO (21:00)
[2018-09-02] MEDS: traZODone 50 MG TAB PO (21:10)
[2018-09-03] VITALS (8 sets, daily range): BP systolic 128–182; BP diastolic 60–82; PULSE 67–82; RESP 16–18; TEMP 36.4–37.1; O2SAT 92–98
[2018-09-03 07:13] LABS: HCT 30.6 % (40.0-50.0); HGB 9.9 g/dL (13.5-17.5); Mean Corp. HGB Concentration 32.4 g/dL (32.0-36.0); Mean Corpuscular Hemoglobin 30.2 pg (27.0-33.0); Mean Corpuscular Volume 93.3 fL (80-95); Mean Platelet Volume 10.5 fL (8.0-11.0); Platelet Count 152 x1000/uL (130-400); RBC 3.28 m/cumm (4.50-6.00); RBC Distribution Width 13.1 % (11.8-14.1); White Blood Cell Count 4.85 k/cumm (4.4-10.8)
[2018-09-03 07:19] LABS: Anion Gap 5.8 mmol/L (3-11); BUN 13 mg/dL (7-18); CO2 30.2 mmol/L (21.0-32.0); CREATININE 1.03 mg/dL (0.70-1.30); Calcium 8.5 mg/dL (8.5-10.1); Chloride 105 mmol/L (98-107); Glucose 107 mg/dL (70-100); Magnesium 1.9 mg/dL (1.8-2.4); Potassium 3.9 mmol/L (3.5-5.1); Sodium 141 mmol/L (136-145)
[2018-09-03] MEDS: Metoprolol CR 50 MG TABCR 75 MG PO (08:05)
[2018-09-03] MEDS: Pantoprazole 40 MG VIAL IVP (08:06)
[2018-09-03] MEDS: Normal Saline Flush 10 ML SYR IVP (08:06)
[2018-09-03] MEDS: Isosorbide Mononitrate 30 MG TABCR PO (08:06)
--- NOTE | 2018-09-03 09:49 | CMPROGNOTE_ITS ---
Care Management Progress Note Per Sharif STEEL will transfer to [facility] via EMS coordinated by Nursing Coil Assembler.
--- NOTE | 2018-09-03 09:49 | PDOC.CMPRO ---
Care Management Progress Note Per Sharif STEEL will transfer to [facility] via EMS coordinated by Nursing Forest Economist.
--- NOTE | 2018-09-03 11:47 | W.PM.DS.N ---
Date of service: 09/03/18 Time of Service: 11:47 DS: Diagnosis Discharge Diagnosis (1) Melena: Status: Acute (2) Diverticular hemorrhage: Status: Suspected (3) CAD (coronary artery disease): Status: Chronic (4) Pulmonary hypertension: Status: Chronic (5) Chronic systolic CHF (congestive heart failure): Status: Chronic (6) Anemia, iron deficiency: Status: Chronic Discharge Plan Disposition Patient Disposition: [facility] Condition: Stable Discharge Details Reason For Visit: DIVERTICULAR BLEEDING Admit Date/Time: 08/31/18 13:58 Admit Provider: Dawn Stoner Attending Provider: Dawn Stoner Primary Care Provider: Ashley Haro Hospital Course Hospital Course: CC: GI Bleeding HPI: 73 year old man with a prior history of prior diverticular bleeding, sudden cardiac arrest s/p AICD, paroxysmal afib no longer on anticoagulation, CAD s/p stents, on plavix, admitted from [facility] Emergency Department with reported GI Bleeding. Mr. Mei reported multiple loose bowel movements, with stool mixed in with bright red blood per rectum prior to his presentation to the ED. He was scheduled to have a Watchman's procedure performed as he has had recurrent bouts of bleeding. The patient was admitted for [facility] while awaiting transfer with bed availability to [facility]. Hospital Course: (1) Melena: For transfer to [facility] for endoscopy and further evaluation. He is currently NPO with the exception of his morning meds, and maintained on IV PPI therapy. Hgb has trended from 13.9 at admission to 9.9 this morning. Of note, Mr. Mei has a history of diverticular bleed in the past per history. (2) CAD (coronary artery disease): s/p cardiac arrest/AICD. No evidence for ACS - Clopidogrel on hold. (3) Pulmonary hypertension: Carefully monitor volume status while on IVF (4) Chronic systolic CHF (congestive heart failure): Due to ICMP. EF 46%, s/p AICD. Holding diuretics (5) Paroxysmal atrial fibrillation: In NSR at this time. Off anticoagulation. For potential Watchman's procedure as noted above. (6) Obstructive sleep apnea syndrome: Home CPAP (7) Discharge planning issues: Full Code. Transfer to [facility] this weekend for an EGD Transfer Medications: 1. Tylenol 650mg PO Q4 prn 2. Proventil 2.5mg UPD Q2 PRN 3. Atorvastatin 80mg QHS 4. Bupropion 150mg daily 5. Ferrous Sulfate 325mg BID 6. Isosorbide Mononitrate 30mg Daily 7. Lactobacillus 8. Mesalamine 2.4g daily 9. Metoprolol CR 75mg Daily 10. MVI 1 tab daily 11. Mylanta prn 12. Protonix 40mg IV BID 13. Tacrolimus topical ointment BID 14. Trazodone 50mg QHS prn Please note that below medications are home meds. Home Meds and New Rx's Prescriptions: Continued trazodone 50 mg tablet 50 mg PO PRN Qty: 90 RF: 3 metoprolol succinate 50 mg tablet extended release 24 hr 75 mg PO DAILY Qty: 135 RF: 3 multivitamin [Daily Multi-Vitamin] 1 EACH tablet 1 ea PO DAILY RF: 0 ferrous sulfate 324 MG tablet,delayed release (DR/EC) 324 mg PO BID Qty: 60 RF: 3 mesalamine [Lialda] 1.2 GM tablet,delayed release (DR/EC) 2.4 g PO DAILY RF: 0 clopidogrel [Plavix] 75 MG tablet 75 mg PO DAILY Qty: 90 RF: 3 Culturelle 1 EACH capsule 1 ea PO DAILY Qty: 100 RF: 6 atorvastatin 80 MG tablet 80 mg PO DAILY Qty: 90 RF: 3 bupropion HCl 75 MG tablet 150 mg PO DAILY Qty: 180 RF: 3 isosorbide mononitrate 30 mg tablet extended release 24 hr 30 mg PO DAILY RF: 0 spironolactone 25 mg tablet 12.5 mg PO DAILY Qty: 45 RF: 3 esomeprazole magnesium [Nexium] 20 mg capsule,delayed release(DR/EC) 20 mg PO DAILY RF: 0 furosemide 20 mg tablet 20 mg PO DAILY Qty: 90 RF: 3 tacrolimus 0.1 % ointment 1 applic TP BID RF: 0 Discharge Instructions Stand Alone Forms: Nursing Discharge Form Activity:: Ambulate with assistance Diet:: NPO Discharge Orders Discharge Orders: Discharge Order (Routine); Ordered 09/03/18 Ordered By: Riley Jennings DS: Data Vitals/I&O Vitals and I&O: Vital Signs Temperature 36.5 C 09/03/18 08:52 Temperature Source Tympanic 09/03/18 08:52 Pulse 70 09/03/18 08:52 Pulse Rhythm Regular 09/03/18 08:42 Pulse 73 09/02/18 14:37 Respiratory Rate 18 09/03/18 08:52 Respiratory Effort Non-Labored 09/03/18 08:42 Respiratory Depth Normal 09/03/18 08:42 Respiratory Pattern Normal 09/03/18 08:42 Blood Pressure 170/82 H 09/03/18 08:52 Blood Pressure Mean 91 09/02/18 14:37 Blood Pressure Position Sitting 09/02/18 11:49 Pulse Oximetry 98 09/03/18 08:52 Oxygen Delivery Method Room Air 09/03/18 08:52 Oxygen Flow Rate 0 09/03/18 08:52 Pain Level 0 09/02/18 15:15 Comment 09/02/18 15:15 Intake & Output 09/02/18 09/02/18 09/03/18 11:59 23:59 11:59 Intake Total 1610 / 2230 620 / 2230 520 / 520 Output Total 1050 / 1450 400 / 1450 750 / 750 Balance 560 / 780 220 / 780 -230 / -230 Weight 111.8 kg 110.3 kg Intake: IV 20 / 20 Oral 1610 / 2230 620 / 2230 500 / 500 Output: Urine 1050 / 1450 400 / 1450 750 / 750 Other: Urine Color Yellow Yellow Yellow Urine Appearance Clear Clear Clear Urine Odor None Normal Normal Stool Occult Blood Positive Positive Positive Stool Size Moderate Small Large Stool Characteristics Soft Soft Soft Formed Formed Formed Black Black Voiding Methods Urinal Urinal Urinal Labs on day of discharge: Labs from last 24 hours 09/03/18 09/03/18 09/02/18 06:40 06:40 14:40 WBC 4.85 RBC 3.28 L Hgb 9.9 L 10.5 L Hct 30.6 L 32.0 L MCV 93.3 MCH 30.2 MCHC 32.4 RDW 13.1 Plt Count 152 MPV 10.5 Sodium 141 Potassium 3.9 Chloride 105 Carbon Dioxide 30.2 Anion Gap 5.8 BUN 13 Creatinine 1.03 Estimated GFR/1.73 m2 >= 60.00 Glucose 107 H Calcium 8.5 Magnesium 1.9 PFSH Surgical History Colonoscopy (01/24/15) Endoscopy Implantation of automatic cardioverter/defibrillator, total system (AICD) (06/22/16) Implantation of automatic cardioverter/defibrillator, total system (AICD) (06/24/16) Pacemaker (07/04/16) Prostate Biopsy with imaging guidance (03/12/14) Replacement of total knee joint (~2007) Video Capsule Endoscopy (03/29/17) cardiac catheterization (06/22/16) paraesophageal diaphramtic hernia repair (02/20/18) Family History Mother Neoplasm Father No problems noted. Sister Alcohol abuse Sister No problems noted. Brother No problems noted. Social History Smoking/Tobacco Use Status: Former Tobacco Use
--- NOTE | 2018-09-03 11:50 | DSE_ITS ---
Date of service: 09/03/18 Time of Service: 11:47 DS: Diagnosis Discharge Diagnosis (1) Melena: Status: Acute (2) Diverticular hemorrhage: Status: Suspected (3) CAD (coronary artery disease): Status: Chronic (4) Pulmonary hypertension: Status: Chronic (5) Chronic systolic CHF (congestive heart failure): Status: Chronic (6) Anemia, iron deficiency: Status: Chronic Discharge Plan Disposition Patient Disposition: [facility] Condition: Stable Discharge Details Reason For Visit: DIVERTICULAR BLEEDING Admit Date/Time: 08/31/18 13:58 Admit Provider: Dawn Stoner Attending Provider: Dawn Stoner Primary Care Provider: Ashley Haro Hospital Course Hospital Course: CC: GI Bleeding HPI: 73 year old man with a prior history of prior diverticular bleeding, sudden cardiac arrest s/p AICD, paroxysmal afib no longer on anticoagulation, CAD s/p stents, on plavix, admitted from [facility] Emergency Department with reported GI Bleeding. Mr. Mei reported multiple loose bowel movements, with stool mixed in with bright red blood per rectum prior to his presentation to the ED. He was scheduled to have a Watchman's procedure performed as he has had recurrent bouts of bleeding. The patient was admitted for [facility] while awaiting transfer with bed availability to [facility]. Hospital Course: (1) Melena: For transfer to [facility] for endoscopy and further evaluation. He is currently NPO with the exception of his morning meds, and maintained on IV PPI therapy. Hgb has trended from 13.9 at admission to 9.9 this morning. Of note, Mr. Mei has a history of diverticular bleed in the past per history. (2) CAD (coronary artery disease): s/p cardiac arrest/AICD. No evidence for ACS - Clopidogrel on hold. (3) Pulmonary hypertension: Carefully monitor volume status while on IVF (4) Chronic systolic CHF (congestive heart failure): Due to ICMP. EF 46%, s/p AICD. Holding diuretics (5) Paroxysmal atrial fibrillation: In NSR at this time. Off anticoagulation. For potential Watchman's procedure as noted above. (6) Obstructive sleep apnea syndrome: Home CPAP (7) Discharge planning issues: Full Code. Transfer to [facility] this weekend for an EGD Transfer Medications: 1. Tylenol 650mg PO Q4 prn 2. Proventil 2.5mg UPD Q2 PRN 3. Atorvastatin 80mg QHS 4. Bupropion 150mg daily 5. Ferrous Sulfate 325mg BID 6. Isosorbide Mononitrate 30mg Daily 7. Lactobacillus 8. Mesalamine 2.4g daily 9. Metoprolol CR 75mg Daily 10. MVI 1 tab daily 11. Mylanta prn 12. Protonix 40mg IV BID 13. Tacrolimus topical ointment BID 14. Trazodone 50mg QHS prn Please note that below medications are home meds. Home Meds and New Rx's Prescriptions: Continued trazodone 50 mg tablet 50 mg PO PRN Qty: 90 RF: 3 metoprolol succinate 50 mg tablet extended release 24 hr 75 mg PO DAILY Qty: 135 RF: 3 multivitamin [Daily Multi-Vitamin] 1 EACH tablet 1 ea PO DAILY RF: 0 ferrous sulfate 324 MG tablet,delayed release (DR/EC) 324 mg PO BID Qty: 60 RF: 3 mesalamine [Lialda] 1.2 GM tablet,delayed release (DR/EC) 2.4 g PO DAILY RF: 0 clopidogrel [Plavix] 75 MG tablet 75 mg PO DAILY Qty: 90 RF: 3 Culturelle 1 EACH capsule 1 ea PO DAILY Qty: 100 RF: 6 atorvastatin 80 MG tablet 80 mg PO DAILY Qty: 90 RF: 3 bupropion HCl 75 MG tablet 150 mg PO DAILY Qty: 180 RF: 3 isosorbide mononitrate 30 mg tablet extended release 24 hr 30 mg PO DAILY RF: 0 spironolactone 25 mg tablet 12.5 mg PO DAILY Qty: 45 RF: 3 esomeprazole magnesium [Nexium] 20 mg capsule,delayed release(DR/EC) 20 mg PO DAILY RF: 0 furosemide 20 mg tablet 20 mg PO DAILY Qty: 90 RF: 3 tacrolimus 0.1 % ointment 1 applic TP BID RF: 0 Discharge Instructions Stand Alone Forms: Nursing Discharge Form Activity:: Ambulate with assistance Diet:: NPO Discharge Orders Discharge Orders: Discharge Order (Routine); Ordered 09/03/18 Ordered By: Riley Jennings DS: Data Vitals/I&O Vitals and I&O: Vital Signs Temperature 36.5 C 09/03/18 08:52 Temperature Source Tympanic 09/03/18 08:52 Pulse 70 09/03/18 08:52 Pulse Rhythm Regular 09/03/18 08:42 Pulse 73 09/02/18 14:37 Respiratory Rate 18 09/03/18 08:52 Respiratory Effort Non-Labored 09/03/18 08:42 Respiratory Depth Normal 09/03/18 08:42 Respiratory Pattern Normal 09/03/18 08:42 Blood Pressure 170/82 H 09/03/18 08:52 Blood Pressure Mean 91 09/02/18 14:37 Blood Pressure Position Sitting 09/02/18 11:49 Pulse Oximetry 98 09/03/18 08:52 Oxygen Delivery Method Room Air 09/03/18 08:52 Oxygen Flow Rate 0 09/03/18 08:52 Pain Level 0 09/02/18 15:15 Comment 09/02/18 15:15 Intake & Output 09/02/18 09/02/18 09/03/18 11:59 23:59 11:59 Intake Total 1610 / 2230 620 / 2230 520 / 520 Output Total 1050 / 1450 400 / 1450 750 / 750 Balance 560 / 780 220 / 780 -230 / -230 Weight 111.8 kg 110.3 kg Intake: IV 20 / 20 Oral 1610 / 2230 620 / 2230 500 / 500 Output: Urine 1050 / 1450 400 / 1450 750 / 750 Other: Urine Color Yellow Yellow Yellow Urine Appearance Clear Clear Clear Urine Odor None Normal Normal Stool Occult Blood Positive Positive Positive Stool Size Moderate Small Large Stool Characteristics Soft Soft Soft Formed Formed Formed Black Black Voiding Methods Urinal Urinal Urinal Labs on day of discharge: Labs from last 24 hours 09/03/18 09/03/18 09/02/18 06:40 06:40 14:40 WBC 4.85 RBC 3.28 L Hgb 9.9 L 10.5 L Hct 30.6 L 32.0 L MCV 93.3 MCH 30.2 MCHC 32.4 RDW 13.1 Plt Count 152 MPV 10.5 Sodium 141 Potassium 3.9 Chloride 105 Carbon Dioxide 30.2 Anion Gap 5.8 BUN 13 Creatinine 1.03 Estimated GFR/1.73 m2 >= 60.00 Glucose 107 H Calcium 8.5 Magnesium 1.9 PFSH Surgical History Colonoscopy (01/24/15) Endoscopy Implantation of automatic cardioverter/defibrillator, total system (AICD) (06/22/16) Implantation of automatic cardioverter/defibrillator, total system (AICD) (06/24/16) Pacemaker (07/04/16) Prostate Biopsy with imaging guidance (03/12/14) Replacement of total knee joint (~2007) Video Capsule Endoscopy (03/29/17) cardiac catheterization (06/22/16) paraesophageal diaphramtic hernia repair (02/20/18) Family History Mother Neoplasm Father No problems noted. Sister Alcohol abuse Sister No problems noted. Brother No problems noted. Social History Smoking/Tobacco Use Status: Former Tobacco Use
== END 2018-09-03 14:06 | disposition short-term general hospital (02) | DRG 378 ==
LOC: ER 15:17 → ICU 16:55 → MS 09-02 15:12
PROVIDERS: Admitting Provider Internal Medicine; Emergency Provider Emergency Medicine; PCP Nurse Practitioner; Visit Provider Internal Medicine
DX: K92.2 Gastrointestinal hemorrhage, unspecified (principal); I50.22 Chronic systolic (congestive) heart failure; K92.1 Melena; I25.10 Atherosclerotic heart disease of native coronary artery without angina pectoris; I27.20 Pulmonary hypertension, unspecified; D50.9 Iron deficiency anemia, unspecified; I48.0 Paroxysmal atrial fibrillation; Z86.74 Personal history of sudden cardiac arrest; G47.33 Obstructive sleep apnea (adult) (pediatric); Z95.810 Presence of automatic (implantable) cardiac defibrillator; Z79.02 Long term (current) use of antithrombotics/antiplatelets
CPT/HCPCS: 36415; 80048; 80053; 85027; 86850; 86900; 86901; 86920; 93005; 99222; 99223; 99232; 99239; 99253; 99285; 82728; 83540; 83550; 83735; 84484; 85014; 85018; 85025; 85610; 93010; 99284

== ENCOUNTER 2018-09-08 14:21 | Outpatient (CLI) | payer MEDICARE, OTHER, SELFPAY ==
[2018-09-08 14:52] LABS: HCT 31.7 % (40.0-50.0); HGB 10.2 g/dL (13.5-17.5); Mean Corp. HGB Concentration 32.2 g/dL (32.0-36.0); Mean Corpuscular Hemoglobin 30.3 pg (27.0-33.0); Mean Corpuscular Volume 94.1 fL (80-95); Mean Platelet Volume 10.1 fL (8.0-11.0); Platelet Count 263 x1000/uL (130-400); RBC 3.37 m/cumm (4.50-6.00); RBC Distribution Width 14.5 % (11.8-14.1); White Blood Cell Count 6.46 k/cumm (4.4-10.8)
[2018-09-08 15:50] LABS: ALT 31 U/L (12-78); AST 30 U/L (15-37); Albumin 3.7 g/dL (3.4-5.0); Alkaline Phosphatase 121 U/L (46-116); Anion Gap 9.3 mmol/L (3-11); BUN 13 mg/dL (7-18); Bilirubin, Total 0.3 mg/dL (0.2-1.0); CO2 29.7 mmol/L (21.0-32.0); CREATININE 1.25 mg/dL (0.70-1.30); Calcium 9.2 mg/dL (8.5-10.1); Chloride 102 mmol/L (98-107); Estimated GFR 56.62 (mL/min/1.73m2); Glucose 110 mg/dL (70-100); Potassium 4.1 mmol/L (3.5-5.1); Sodium 141 mmol/L (136-145); Total Protein 6.9 g/dL (6.4-8.2)
--- NOTE | 2018-09-13 13:03 | HOLTER_ITS ---
HOLTER MONITOR REPORT DATE OF DICTATION September 13, 2018 STUDY INDICATION Paroxysmal atrial fibrillation. REQUESTING PROVIDER Ashley Haro NP FINDINGS The patient was monitored for 2 days. Baseline rhythm was sinus rhythm. Average heart rate 70 beats per minute, range 59 to 170 beats per minute. There was occasional ventricular ectopy, 1.8%. There was rare supraventricular ectopy, 0.2%. There was a single 3-beat atrial run with a maximum heart rate of 183 beats per minute. There was a single 37 beat run of sinus rhythm conducted via an accessory pathway with antegrade conduction with a maximum heart rate of 68 beats per minute. There were 8 patient events. 4 event correlated with a sinus tachycardia. There were 3 events correlated with PVCs. All other events did not correlate with arrhythmias. There were no pauses greater than 3 seconds. There was no higher degree heart block. FINAL INTERPRETATION Intermittent pre-excitation at lower heart rates only. Occasional PVC's, at times symptomatic. Miguel Florez M.D. NHAN/louise T - 09/13/2018
== END 2018-09-08 14:41 ==
PROVIDERS: PCP Nurse Practitioner; Visit Provider Nurse Practitioner
DX: I48.0 Paroxysmal atrial fibrillation (principal); G47.33 Obstructive sleep apnea (adult) (pediatric); Z87.19 Personal history of other diseases of the digestive system; D50.9 Iron deficiency anemia, unspecified; I49.3 Ventricular premature depolarization; R00.0 Tachycardia, unspecified
CPT/HCPCS: 36415; 80053; 85027; 93225

== ENCOUNTER 2018-09-12 08:17 | Outpatient (CLI) | payer MEDICARE, OTHER, SELFPAY | END 2018-09-12 08:37 | PROVIDERS: PCP Nurse Practitioner; Visit Provider Nurse Practitioner | DX: I48.0 Paroxysmal atrial fibrillation (principal); R00.0 Tachycardia, unspecified; I49.3 Ventricular premature depolarization | CPT/HCPCS: 93226 ==

== ENCOUNTER 2018-09-13 10:30 | Outpatient (CLI) | payer MEDICARE, OTHER, SELFPAY | END 2018-09-13 10:50 | PROVIDERS: PCP Nurse Practitioner; Referring Provider Nurse Practitioner; Visit Provider Student in an Organized Health Care Education/Training Program | DX: I48.0 Paroxysmal atrial fibrillation (principal); I49.3 Ventricular premature depolarization; R00.0 Tachycardia, unspecified | CPT/HCPCS: 93227 ==

== ENCOUNTER 2018-10-17 07:00 | Outpatient (RCR) | payer SELFPAY | END 2018-10-20 23:59 | disposition home or self-care (01) | LOC: CR 07:00 | PROVIDERS: PCP Nurse Practitioner; Visit Provider Family Medicine | DX: Z51.89 Encounter for other specified aftercare (principal) | CPT/HCPCS: S9472 ==

== ENCOUNTER 2018-10-22 06:55 | Outpatient (RCR) | payer SELFPAY | END 2018-11-20 23:59 | disposition home or self-care (01) | LOC: CR 06:55 | PROVIDERS: PCP Nurse Practitioner; Visit Provider Family Medicine | DX: Z51.89 Encounter for other specified aftercare (principal) ==

== ENCOUNTER 2018-10-23 22:58 | Emergency (ER) | payer MEDICARE, OTHER, SELFPAY ==
[2018-10-23 23:00] VITALS: BP 164/100; PULSE 106; RESP 24; O2SAT 97
[2018-10-23 23:08] VITALS: BP 160/100; PULSE 108; RESP 20; TEMP 37.5; O2SAT 97
--- NOTE | 2018-10-23 23:08 | DI.RAD_ITS ---
SYMPTOMS/DIAGNOSIS: ARRHYTHMIA PA AND LATERAL CHEST: Comparison is made with portable chest dated . The heart is enlarged. A pacemaker is noted. The lungs appear clear. No infiltrate, effusion or pulmonary edema is seen. There is an old T 12 compression fracture. IMPRESSION: Cardiomegaly. No acute abnormality.
[2018-10-23 23:15] VITALS: BP 142/59; PULSE 98; RESP 22; O2SAT 94
[2018-10-23 23:23] LABS: Abs Immature Grans 0.01 k/cumm (0.0-0.09); Absolute Basophil Count 0.04 k/cumm (0.0-0.2); Absolute Eosinophil Count 0.52 k/cumm (0.0-0.7); Absolute Lymphocyte Count 1.27 k/cumm (1.2-3.4); Absolute Neutrophil Count 5.39 k/cumm (1.2-6.7); Basophils % 0.5; Eosinophils % 6.4; HCT 41.2 % (40.0-50.0); HGB 13.7 g/dL (13.5-17.5); Immature Grans % 0.1; Lymphocytes % 15.6; Mean Corp. HGB Concentration 33.3 g/dL (32.0-36.0); Mean Corpuscular Hemoglobin 31.1 pg (27.0-33.0); Mean Corpuscular Volume 93.4 fL (80-95); Mean Platelet Volume 10.6 fL (8.0-11.0); Monocytes % 11.1; Neutrophils % 66.3; Platelet Count 170 x1000/uL (130-400); RBC 4.41 m/cumm (4.50-6.00); RBC Distribution Width 14.3 % (11.8-14.1); White Blood Cell Count 8.13 k/cumm (4.4-10.8)
[2018-10-23 23:30] VITALS: BP 130/80; PULSE 97; RESP 24; O2SAT 93
[2018-10-23 23:42] LABS: ALT 32 U/L (12-78); AST 31 U/L (15-37); Albumin 3.4 g/dL (3.4-5.0); Alkaline Phosphatase 119 U/L (46-116); Anion Gap 9.2 mmol/L (3-11); BUN 18 mg/dL (7-18); Bilirubin, Total 0.5 mg/dL (0.2-1.0); CO2 27.8 mmol/L (21.0-32.0); CREATININE 1.06 mg/dL (0.70-1.30); Calcium 8.9 mg/dL (8.5-10.1); Chloride 102 mmol/L (98-107); Glucose 134 mg/dL (70-100); Magnesium 1.8 mg/dL (1.8-2.4); NT-proBNP 1326 pg/mL; Potassium 3.9 mmol/L (3.5-5.1); Sodium 139 mmol/L (136-145); Total Protein 7.5 g/dL (6.4-8.2)
[2018-10-23 23:46] LABS: Troponin I 0.21 ng/mL (0.00-0.06)
[2018-10-23 23:50] LABS: PTT Activated 27.8 sec (21.0-31.4); Prothrombin Time 9.7 sec (9.3-11.0)
[2018-10-24] VITALS (78 sets, daily range): BP systolic 102–155; BP diastolic 50–117; PULSE 59–149; RESP 17–32; O2SAT 87–98
--- NOTE | 2018-10-24 00:17 | ED.GENADUL_ITS ---
Discharge Plan Disposition Patient Disposition: [facility] Condition: Stable Discharge Details Chief Complaint: Palpitatns Clinical Impression: NSTEMI (non-ST elevated myocardial infarction) Primary Care Provider: Ashley Haro ED Provider: Andre Reeder Home Meds and New Rx's Prescriptions: No Action trazodone 50 mg tablet 50 mg PO PRN Qty: 90 RF: 3 metoprolol succinate 50 mg tablet extended release 24 hr 100 mg PO DAILY Qty: 180 RF: 3 lidocaine 5 % adhesive patch,medicated 1 patch TP DAILY PRN (Reason: neck pain, back pain) Qty: 30 RF: 3 multivitamin [Daily Multi-Vitamin] 1 EACH tablet 1 ea PO DAILY RF: 0 ferrous sulfate 324 MG tablet,delayed release (DR/EC) 324 mg PO BID Qty: 60 RF: 3 mesalamine [Lialda] 1.2 GM tablet,delayed release (DR/EC) 2.4 g PO DAILY RF: 0 Culturelle 1 EACH capsule 1 ea PO DAILY Qty: 100 RF: 6 atorvastatin 80 MG tablet 80 mg PO DAILY Qty: 90 RF: 3 isosorbide mononitrate 30 mg tablet extended release 24 hr 30 mg PO DAILY RF: 0 spironolactone 25 mg tablet 12.5 mg PO DAILY Qty: 45 RF: 3 esomeprazole magnesium [Nexium] 20 mg capsule,delayed release(DR/EC) 20 mg PO DAILY RF: 0 furosemide 20 mg tablet 20 mg PO DAILY Qty: 90 RF: 3 tacrolimus 0.1 % ointment 1 applic TP BID PRN PRNRF: 0 aspirin [Adult Low Dose Aspirin] 81 mg tablet,delayed release (DR/EC) 81 mg PO DAILY RF: 0 hydrocortisone acetate 1 % packet See Patient Comments TP TID PRNRF: 0 warfarin 2.5 mg tablet See Patient Comments PO DAILY RF: 0 bupropion HCl 75 MG tablet 75 mg PO BID RF: 0 Discharge Data Discharge Date/Time-TO BE ENTERED AT DEPARTURE: 10/24/18 12:41 Medical Decision Making <Caroline Cadena DO - Last Filed: 10/24/18 20:00> 73-year-old male with history of atrial fibrillation who is 3 days status post a watchman procedure at [facility], [place] with history of pacemaker and AICD who presents for palpitations and tachycardia that started 1 hour prior to arrival while resting in bed at home. EKG on arrival noted a rate of 114, atrial fibrillation, [address] depression in I, aVL, V5-6. No acute ST elevation. Patient denies any chest pain at present. Cardiac workup including chest x-ray and coagulation studies ordered on arrival. Patient is continuing his Coumadin for another 45 days status post his watchman procedure and then stopping it. 2330 -- Labs and imaging reviewed. Troponin elevated at 0.21. BNP 1326. INR 1.0. Normal white blood cell count and electrolytes. Chest x-ray negative. Discussed with [facility] -state that the elevated troponin could be due to the atrial fibrillation. There are currently no beds available there. Recommend trending troponins. Does not recommend any Plavix or heparin for NSTEMI at this time as this may be due to the Afib. There are no beds available here at [facility]. Will keep in the ED to trend troponins and contact [facility] if any symptoms change. 0230 --second troponin slightly up trending to 0.25. Notified that patient has had intermittent complaints of chest pressure with his palpitations. Patient denies any chest pain at present. This was discussed with [facility] cardiology -recommends Plavix 300 mg, heparin bolus and drip for NSTEMI due to uptrending troponin in setting of intermittent chest pressure. There is still currently no beds available at [facility]. Patient opted for transfer pending bed availability. Accepting physician Dr. Olivares. Also attempted to contact [facility] and no beds available there for 24-48 hours and pt preferred transfer to [facility]. 0730 --3rd troponin up trending to 0.43. Patient denies any chest pain over the past few hours or at present. Repeat EKG notes a rate of 85, atrial fibrillation, less than [address] depression in 1, V6, appears improved compared to previous. No acute ST elevation. 0800 --case endorsed to Dr. Reeder to f/u with [facility] for final disposition. Medical Records Medical records reviewed: Yes I reviewed the patient's medical records. Imaging Data Radiologic Study: Radiologist's impression: XR Chest, 2 Views EXAM DATE/TIME: 10/23/2018 11:09 PM FINDINGS: Lungs: Unremarkable. No consolidation. Pleural space: Unremarkable. No pleural effusion. No pneumothorax. Heart/Mediastinum: Borderline cardiomegaly. Bones/joints: Unremarkable. Other findings: Left chest wall pacing device. IMPRESSION: No acute finding. Lab Data Laboratory Tests Range/Units 10/23/18 10/23/18 10/23/18 23:15 23:15 23:15 WBC (4.4-10.8) k/cumm 8.13 RBC (4.50-6.00) m/cumm 4.41 L Hgb (13.5-17.5) g/dL 13.7 Hct (40.0-50.0) % 41.2 MCV (80-95) fL 93.4 MCH (27.0-33.0) pg 31.1 MCHC (32.0-36.0) g/dL 33.3 RDW (11.8-14.1) % 14.3 H Plt Count (130-400) x1000/uL 170 MPV (8.0-11.0) fL 10.6 Immature Gran % 0.1 Neutrophils % 66.3 Lymphocytes % 15.6 Monocytes % 11.1 Eosinophils % 6.4 Basophils % 0.5 Absolute Neutrophils (1.2-6.7) k/cumm 5.39 Absolute Lymphocytes (1.2-3.4) k/cumm 1.27 Absolute Monocytes (0.11-0.7) k/cumm 0.90 H Absolute Eosinophils (0.0-0.7) k/cumm 0.52 Absolute Basophils (0.0-0.2) k/cumm 0.04 PT (9.3-11.0) sec 9.7 INR (0.9-1.1) 1.0 APTT (21.0-31.4) sec 27.8 Sodium (136-145) mmol/L 139 Potassium (3.5-5.1) mmol/L 3.9 Chloride (98-107) mmol/L 102 Carbon Dioxide (21.0-32.0) mmol/L 27.8 Anion Gap (3-11) mmol/L 9.2 BUN (7-18) mg/dL 18 Creatinine (0.70-1.30) mg/dL 1.06 Estimated GFR/1.73 m2 (mL/min/1.73m2) >= 60.00 Glucose (70-100) mg/dL 134 H Calcium (8.5-10.1) mg/dL 8.9 Magnesium (1.8-2.4) mg/dL 1.8 Total Bilirubin (0.2-1.0) mg/dL 0.5 AST (15-37) U/L 31 ALT (12-78) U/L 32 Alkaline Phosphatase (46-116) U/L 119 H Troponin I (0.00-0.06) ng/mL 0.21 H* NT-Pro-B Natriuret Pep ( - 299) pg/mL 1326 H Total Protein (6.4-8.2) g/dL 7.5 Albumin (3.4-5.0) g/dL 3.4 Range/Units 10/24/18 01:49 WBC (4.4-10.8) k/cumm RBC (4.50-6.00) m/cumm Hgb (13.5-17.5) g/dL Hct (40.0-50.0) % MCV (80-95) fL MCH (27.0-33.0) pg MCHC (32.0-36.0) g/dL RDW (11.8-14.1) % Plt Count (130-400) x1000/uL MPV (8.0-11.0) fL Immature Gran % Neutrophils % Lymphocytes % Monocytes % Eosinophils % Basophils % Absolute Neutrophils (1.2-6.7) k/cumm Absolute Lymphocytes (1.2-3.4) k/cumm Absolute Monocytes (0.11-0.7) k/cumm Absolute Eosinophils (0.0-0.7) k/cumm Absolute Basophils (0.0-0.2) k/cumm PT (9.3-11.0) sec INR (0.9-1.1) APTT (21.0-31.4) sec Sodium (136-145) mmol/L Potassium (3.5-5.1) mmol/L Chloride (98-107) mmol/L Carbon Dioxide (21.0-32.0) mmol/L Anion Gap (3-11) mmol/L BUN (7-18) mg/dL Creatinine (0.70-1.30) mg/dL Estimated GFR/1.73 m2 (mL/min/1.73m2) Glucose (70-100) mg/dL Calcium (8.5-10.1) mg/dL Magnesium (1.8-2.4) mg/dL Total Bilirubin (0.2-1.0) mg/dL AST (15-37) U/L ALT (12-78) U/L Alkaline Phosphatase (46-116) U/L Troponin I (0.00-0.06) ng/mL 0.25 H* NT-Pro-B Natriuret Pep ( - 299) pg/mL Total Protein (6.4-8.2) g/dL Albumin (3.4-5.0) g/dL ECG Data Attestation: I personally reviewed and interpreted this ECG (s) as follows: Interpretation: on arrival -- Rate of 114, A. fib, [address] depression in 1, aVL, V5 and V6, which is seen similarly in previous EKG, except for aVL which appears new. No acute ST elevation. 0730 --rate of 85, atrial fibrillation, less than [address] depression in 1, V6. No acute ST elevation. QTc 457. QRS 104 <Andre Reeder MD - Last Filed: 10/24/18 11:58> Received signout from Dr. Cadena. Please see her note regarding details of patient's history, findings, plan of care. Patient did have mild ongoing chest pressure rated 1 out of 10 was placed on a nitroglycerin drip with improvement. As per previous, troponin amador to 0.4. Patient does remain stable and is appropriate for transfer. Accepted in transfer to Dr. Olivares's service. HPI <Carolnie Cadena DO - Last Filed: 10/24/18 20:00> General Mode of arrival: ambulatory . Date/Time Provider Initiated Documentation: 10/23/18 23:15 . Limitations to Documentation: no limitations . Information obtained by: patient . HPI Narrative: Patient is a 73-year-old male who is 3 days status post a watchman procedure at [facility] who presents for tachycardia, palpitations and chest pressure tonight. He states he felt his heart beat race fast, checked his heart rate and it was approximately 130s. States it has been alternating between fast and slow. Patient states that approximately 1 hour prior to arrival he was laying in bed when he developed the symptoms. He states the chest pain is resolving since arrival to the ED. He admits to some headache but denies any shortness of breath, nausea, vomiting or dizziness. Related Data Home Medications Medication Instructions Recorded Confirmed multivitamin [Daily Multi-Vitamin] 1 ea PO DAILY 07/14/16 10/23/18 ferrous sulfate 324 mg PO BID #60 tab 10/28/16 10/23/18 mesalamine [Lialda] 2.4 g PO DAILY tab-cap 01/08/17 10/23/18 Culturelle 1 ea PO DAILY #100 tab-cap 12/23/17 10/17/18 atorvastatin 80 mg PO DAILY #90 tab-cap 03/28/18 10/23/18 trazodone 50 mg tablet 50 mg PO PRN #90 tab 06/15/18 10/23/18 isosorbide mononitrate ER 30 mg 30 mg PO DAILY 06/24/18 10/23/18 tablet,extended release 24 hr spironolactone 25 mg tablet 12.5 mg PO DAILY #45 tab-cap 07/06/18 10/23/18 esomeprazole magnesium 20 mg 20 mg PO DAILY cap 07/25/18 10/23/18 capsule,delayed release furosemide 20 mg tablet 20 mg PO DAILY #90 tab 07/28/18 10/23/18 tacrolimus 0.1 % topical ointment 1 applic TP BID PRN PRN 08/02/18 10/23/18 aspirin 81 mg tablet,delayed 81 mg PO DAILY 09/06/18 10/23/18 release hydrocortisone acetate 1 % topical See Rx Instructions TP TID PRN 10/03/18 10/17/18 packet lidocaine 5 % topical patch 1 patch TP DAILY PRN #30 each 10/07/18 10/23/18 metoprolol succinate ER 50 mg 100 mg PO DAILY #180 tab 10/17/18 10/23/18 tablet,extended release 24 hr warfarin 2.5 mg tablet See Rx Instructions PO DAILY 10/21/18 10/23/18 bupropion HCl 75 mg PO BID 10/23/18 10/23/18 Previous Rx's Medication Instructions Recorded Culturelle 1 ea PO DAILY #100 tab-cap 12/23/17 atorvastatin 80 mg PO DAILY #90 tab-cap 03/28/18 trazodone 50 mg tablet 50 mg PO PRN #90 tab 06/15/18 spironolactone 25 mg tablet 12.5 mg PO DAILY #45 tab-cap 07/06/18 furosemide 20 mg tablet 20 mg PO DAILY #90 tab 07/28/18 lidocaine 5 % topical patch 1 patch TP DAILY PRN #30 each 10/07/18 metoprolol succinate ER 50 mg 100 mg PO DAILY #180 tab 10/17/18 tablet,extended release 24 hr Allergies Allergy/AdvReac Type Severity Reaction Status Date / Time morphine AdvReac Severe flashbacks Verified 10/23/18 23:17 from [place] sulfamethoxazole AdvReac Intermediate arthralgia, Verified 10/23/18 23:17 [From Bactrim] myalgia, sweats trimethoprim [From Bactrim] AdvReac Intermediate arthralgia, Verified 10/23/18 23:17 myalgia, sweats NSAIDS (Non-Steroidal AdvReac GI Bleeding Verified 10/23/18 23:17 Anti-Inflamma General Stated Complaint: Palpitatns MALLORIE: 3 Review of Systems <Caroline Cadnea DO - Last Filed: 10/24/18 20:00> Review of Systems All systems reviewed & are unremarkable except as noted in HPI and below Constitutional Reports as per HPI, Denies chills and Denies fever(s) Eyes Denies blurry vision ENT Denies dizziness, Denies sore throat and Denies throat swelling Cardiovascular Reports chest pain, Reports palpitations and Denies dyspnea Respiratory Denies cough and Denies dyspnea Gastrointestinal Denies abdominal pain, Denies diarrhea and Denies vomiting Genitourinary Denies hematuria and Denies dysuria Musculoskeletal Denies back pain and Denies numbness Integumentary/Breasts Denies lesions and Denies rash Neurologic Denies dizziness, Denies focal weakness and Denies numbness Endocrine Reports palpitations Allergic/Immunologic Denies throat swelling PFSH <Caroline Cadena DO - Last Filed: 10/24/18 20:00> Medical History Atrial fibrillation (Chronic) HTN (hypertension) (Chronic) Myocardial infarction (Chronic) Ulcerative colitis (Chronic) Surgical History Presence of Watchman left atrial appendage closure device (Acute) Colonoscopy (01/24/15) Endoscopy Implantation of automatic cardioverter/defibrillator, total system (AICD) (06/22/16) Implantation of automatic cardioverter/defibrillator, total system (AICD) (06/24/16) Pacemaker (07/04/16) Prostate Biopsy with imaging guidance (03/12/14) Replacement of total knee joint (~2007) Video Capsule Endoscopy (03/29/17) cardiac catheterization (06/22/16) paraesophageal diaphramtic hernia repair (02/20/18) Family History Mother Neoplasm Father No problems noted. Sister Alcohol abuse Sister No problems noted. Brother No problems noted. Social History adopted: No household members: spouse marital status details: Emily hernandez lives independently: Yes highest education level completed: high school graduate service: Yes m[facility]: Yes (to rehab after [place], 2016) current occupational status: retired frequency: 3-4 times per week duration: 45-60 minutes/day Smoking and Tabacco status: Former Tobacco Use alcohol intake: never substance use type: does not use dali/sikhism: Mormonism What is your relationship status?: Panel score (0-1 are the most socially isolated patients): 1 Seatbelt use: always Helmet use: Yes Drives intoxicated or rides with intoxicated party bus driver: No Exam <Caroline Cadena DO - Last Filed: 10/24/18 20:00> Const General: cooperative, healthy appearing and no acute distress HENMT Head: normal to inspection Face and sinus: normal facial exam Eyes General: appearance normal, both eyes and all related structures Neck Neck: normal visual inspection and No submandibular swelling Lymphatic: no lymphadenopathy noted Chest Chest: normal inspection of the chest and no tenderness Resp Effort & Inspection: normal respiratory effort and able to speak in complete sentences Auscultation: clear to auscultation bilaterally Cardio Rate: regular rate Rhythm: regular rhythm GI Inspection: normal to inspection Palpation: soft, not firm, not rigid and nontender Auscultation: normal bowel sounds Back/Spine/Pelvis Thoracic/Lumbar Spine: thoracic and lumbar spine normal to inspection Skin General skin exam: no rashes or lesions noted Neuro General: alert, awake and oriented x3 Cognition: normal cognition Speech: speech normal Motor: muscle tone normal throughout Sensory Exam: no sensory deficits noted Extrem General: normal to inspection, full ROM and edema (1+ pitting edema b/l ) Psych Appearance: grossly normal Mental Status: mental status grossly normal Speech and Movement: speech and movement normal Affect: normal affect Course <Caroline Shanique [place], DO - Last Filed: 10/24/18 20:00> Vital Signs Temperature 99.5 F 10/23/18 23:08 Pulse 108 H 10/23/18 23:08 Respiratory Rate 20 10/23/18 23:08 Blood Pressure 160/100 H 10/23/18 23:08 Pulse Oximetry 97 10/23/18 23:08 Temperature 99.5 F 10/23/18 23:08 Temperature Source Temporal Artery Scan 10/23/18 23:08 Pulse 108 H 10/23/18 23:08 Respiratory Rate 20 10/23/18 23:08 Respiratory Effort 10/23/18 23:08 Blood Pressure 160/100 H 10/23/18 23:08 Blood Pressure Position Supine 10/23/18 23:08 Pulse Oximetry 97 10/23/18 23:08 Oxygen Delivery Method Room Air 10/23/18 23:08 Oxygen Flow Rate 0 10/23/18 23:08 Pain Level 0 10/23/18 23:08 Lab/Test Results Lab/Test Results: Laboratory Tests Range/Units 10/23/18 10/23/18 10/23/18 23:15 23:15 23:15 WBC (4.4-10.8) k/cumm 8.13 RBC (4.50-6.00) m/cumm 4.41 L Hgb (13.5-17.5) g/dL 13.7 Hct (40.0-50.0) % 41.2 MCV (80-95) fL 93.4 MCH (27.0-33.0) pg 31.1 MCHC (32.0-36.0) g/dL 33.3 RDW (11.8-14.1) % 14.3 H Plt Count (130-400) x1000/uL 170 MPV (8.0-11.0) fL 10.6 Immature Gran % 0.1 Neutrophils % 66.3 Lymphocytes % 15.6 Monocytes % 11.1 Eosinophils % 6.4 Basophils % 0.5 Absolute Neutrophils (1.2-6.7) k/cumm 5.39 Absolute Lymphocytes (1.2-3.4) k/cumm 1.27 Absolute Monocytes (0.11-0.7) k/cumm 0.90 H Absolute Eosinophils (0.0-0.7) k/cumm 0.52 Absolute Basophils (0.0-0.2) k/cumm 0.04 PT (9.3-11.0) sec 9.7 INR (0.9-1.1) 1.0 APTT (21.0-31.4) sec 27.8 Sodium (136-145) mmol/L 139 Potassium (3.5-5.1) mmol/L 3.9 Chloride (98-107) mmol/L 102 Carbon Dioxide (21.0-32.0) mmol/L 27.8 Anion Gap (3-11) mmol/L 9.2 BUN (7-18) mg/dL 18 Creatinine (0.70-1.30) mg/dL 1.06 Estimated GFR/1.73 m2 (mL/min/1.73m2) >= 60.00 Glucose (70-100) mg/dL 134 H Calcium (8.5-10.1) mg/dL 8.9 Magnesium (1.8-2.4) mg/dL 1.8 Total Bilirubin (0.2-1.0) mg/dL 0.5 AST (15-37) U/L 31 ALT (12-78) U/L 32 Alkaline Phosphatase (46-116) U/L 119 H Troponin I (0.00-0.06) ng/mL 0.21 H* NT-Pro-B Natriuret Pep ( - 299) pg/mL 1326 H Total Protein (6.4-8.2) g/dL 7.5 Albumin (3.4-5.0) g/dL 3.4 Sign Out <Caroline Cadena DO - Last Filed: 10/24/18 20:00> Sign Out Data: Sign Out Comment: Plan to transfer to [facility] once bed available. Final disposition may change pending trending troponin and pt symptoms of chest pain. Last updated by Caroline Cadena DO at 10/24/18 05:15
--- NOTE | 2018-10-24 00:26 | DI.VRAD_ITS ---
EXAM: XR Chest, 2 Views EXAM DATE/TIME: 10/23/2018 11:09 PM CLINICAL HISTORY: 73 years old, male; Abnormal findings; Other: Arrhythmia; Prior surgery; Surgery date: 3-7 days post-operative; Surgery type: Watchman procedure; Patient HX: Recent watchman procedure and prior pacemaker TECHNIQUE: XR of the chest, 2 views. COMPARISON: CR PORTABLE CHEST ONE VIEW 06/22/2016 12:03 PM FINDINGS: Lungs: Unremarkable. No consolidation. Pleural space: Unremarkable. No pleural effusion. No pneumothorax. Heart/Mediastinum: Borderline cardiomegaly. Bones/joints: Unremarkable. Other findings: Left chest wall pacing device. IMPRESSION: No acute finding. Dictated and Authenticated by: Gómez Jorge MD. Ordering:P.CALVIN Provider Temporary
[2018-10-24 02:13] LABS: Troponin I 0.25 ng/mL (0.00-0.06)
[2018-10-24] MEDS: Aspirin 325 MG TAB PO (02:20)
[2018-10-24] MEDS: Clopidogrel 300 MG TAB PO (03:16)
[2018-10-24] MEDS: Normal Saline 1,000 ML 30 ML IV (07:49)
[2018-10-24 07:54] LABS: Troponin I 0.43 ng/mL (0.00-0.06)
[2018-10-24] MEDS: Normal Saline Flush 10 ML SYR IVP (08:02)
[2018-10-24 10:43] LABS: Troponin I 0.41 ng/mL (0.00-0.06)
== END 2018-10-24 12:41 | disposition short-term general hospital (02) ==
PROVIDERS: Physician Assistant; Emergency Provider Emergency Medicine; PCP Nurse Practitioner
DX: I48.91 Unspecified atrial fibrillation (principal); R00.2 Palpitations; I21.4 Non-ST elevation (NSTEMI) myocardial infarction; I10 Essential (primary) hypertension; I25.10 Atherosclerotic heart disease of native coronary artery without angina pectoris; Z95.5 Presence of coronary angioplasty implant and graft
CPT/HCPCS: 36415; 80053; 93005; 96365; 96366; 96368; 96376; 99285; 71046; 83735; 83880; 84484; 85025; 85610; 85730; 93010

== ENCOUNTER 2018-10-31 15:42 | Emergency (ER) | payer MEDICARE, OTHER, SELFPAY ==
[2018-10-31] VITALS (37 sets, daily range): BP systolic 124–148; BP diastolic 53–69; PULSE 59–71; RESP 14–34; TEMP 37; O2SAT 90–98
--- NOTE | 2018-10-31 16:13 | DI.CT_ITS ---
SYMPTOM/DIAGNOSIS: S/P CATH WITH PAIN IN LOWER ABDOMEN AND GROIN CTA OF ABDOMEN AND PELVIS: CT angiography was performed with multi slice acquisition and multi planar and 3D reconstruction. There is atherosclerosis of the abdominal aorta. No aneurysm or dissection is seen. There is atherosclerosis at the origins of the celiac axis and superior mesenteric artery. No occlusion or significant stenosis is seen. The renal arteries show mild calcification at the origins but no significant stenosis or occlusion. The iliac arteries and visualized femoral arteries show atherosclerotic calcification but no evidence of dissection, aneurysm or significant stenosis is present. The liver is normal in size. No suspicious hepatic mass is seen. The gallbladder is negative. No biliary ductal dilatation is present. The pancreas, spleen and adrenal glands are unremarkable. The kidneys show normal and symmetric enhancement. There is a right renal cyst. No solid renal mass is present. The urinary bladder is intact. The reproductive organs are unremarkable. No significant abdominal or pelvic adenopathy or pneumoperitoneum is present. There is inflammatory stranding and opacity in the left inguinal region, likely corresponding to the site of the patient's recent catheterization. No findings to suggest active extravasation of contrast or focal fluid collection to suggest an abscess is seen. There is diverticulosis of the colon. There is mild stranding seen in the left lower quadrant around the proximal sigmoid colon. Acute diverticulitis could not be excluded. No abscess or free air is seen. The remainder of the bowel is unremarkable. No findings to suggest an acute appendicitis. There are degenerative changes seen in the bones. Vertebroplasty is noted at T 12. IMPRESSION: 1. Soft tissue stranding and opacities in the left groin likely reflecting post procedural changes related to the patient's recent catheterization. No evidence of active extravasation or abscess. 2. Bilateral infiltrates in the lower lobes of the lungs. This may represent atelectasis. Pneumonia cannot be excluded. 3. Diverticulosis seen in the colon. There does appear to be mild stranding the pericolonic fat around the proximal sigmoid colon and acute diverticulitis cannot be excluded. No abscess or free air is seen.
--- NOTE | 2018-10-31 16:15 | W.ED.GENAD ---
Discharge Plan Disposition Patient Disposition: HOME Discharge Details Chief Complaint: Abd Prob Clinical Impression: Abdominal wall hematoma, Diverticulitis Primary Care Provider: Ashley Haro ED Provider: Curt López Home Meds and New Rx's Prescriptions: New amoxicillin-pot clavulanate [Augmentin] 875-125 mg tablet 1 tab PO BID Qty: 19 RF: 0 Continued trazodone 50 mg tablet 50 mg PO PRN Qty: 90 RF: 3 metoprolol succinate 50 mg tablet extended release 24 hr 100 mg PO DAILY Qty: 180 RF: 3 clopidogrel 75 mg tablet 75 mg PO DAILY RF: 0 nitroglycerin 0.4 mg tablet, sublingual 0.4 mg SL Q5-15M PRNRF: 0 pantoprazole 40 mg tablet,delayed release (DR/EC) 40 mg PO DAILY RF: 0 lidocaine 5 % adhesive patch,medicated 1 patch TP DAILY PRN (Reason: neck pain, back pain) Qty: 30 RF: 3 multivitamin [Daily Multi-Vitamin] 1 EACH tablet 1 ea PO DAILY RF: 0 ferrous sulfate 324 MG tablet,delayed release (DR/EC) 324 mg PO BID Qty: 60 RF: 3 mesalamine [Lialda] 1.2 GM tablet,delayed release (DR/EC) 2.4 g PO DAILY RF: 0 Culturelle 1 EACH capsule 1 ea PO DAILY Qty: 100 RF: 6 atorvastatin 80 MG tablet 80 mg PO DAILY Qty: 90 RF: 3 isosorbide mononitrate 30 mg tablet extended release 24 hr 30 mg PO DAILY RF: 0 spironolactone 25 mg tablet 12.5 mg PO DAILY Qty: 45 RF: 3 furosemide 20 mg tablet 20 mg PO DAILY Qty: 90 RF: 3 tacrolimus 0.1 % ointment 1 applic TP BID PRN PRNRF: 0 aspirin [Adult Low Dose Aspirin] 81 mg tablet,delayed release (DR/EC) 81 mg PO DAILY RF: 0 hydrocortisone acetate 1 % packet See Patient Comments TP TID PRNRF: 0 bupropion HCl 75 MG tablet 75 mg PO BID RF: 0 No Action warfarin 2.5 mg tablet See Patient Comments PO DAILY RF: 0 Discharge Instructions Instructions: Diverticulitis (ED), Hematoma (ED) Additional Instructions: Please maintain a clear liquid diet tonight and tomorrow morning. Tomorrow afternoon you may advance her diet to bland soft foods. Continue bland soft foods diet for the next 3 days. Please take antibiotic as prescribed. Stop taking Coumadin today and tomorrow. You may restart Coumadin the Wednesday. Please contact your primary care physician to arrange follow-up. Please contact your sanitation laborer to arrange follow-up. Return to the ER for any worsening or new concerning symptoms. Referrals: Ashley Haro NP [Primary Care Provider] - Medical Decision Making 16:30 --73-year-old male presents 6 days status post cardiac catheterization with access through left femoral artery, complicated by persistent bleeding from left femoral access site requiring additional procedure to achieve hemostasis, on Coumadin and Plavix, here with persistent lower abdominal pain, tender palpation lower abdomen. Concern for acute surgical pathology including pseudoaneurysm versus persistent intra-abdominal hemorrhage versus other. Plan to obtain CTA of the abdomen and pelvis. --CT the abdomen pelvis interpreted by radiology: IMPRESSION: 1. soft tissue Opacities and strandy densities in the left groin may represent contusion. No evidence of active extravasation. 2. Mild opacities in the lower lobes may represent atelectasis or pneumonia. 3. Diverticulosis and Bowel wall thickening along the rectosigmoid colon. Mild pericolonic inflammatory changes. No evidence of perforation or abscess formation or bleeding. Findings consistent with acute diverticulitis. I called and spoke with vascular surgery on-call at [facility] who reviewed CT and also finds no extravasation and no pseudoaneurysm, they recommend holding Coumadin if possible but recommend consult with cardiology. Plan to treat diverticulitis with Augmentin. 19:19 --I spoke with cardiology at [facility] who recommends holding Coumadin today and tomorrow and resuming the following day. The recommended outpatient follow-up. Results and discussions with consultants were reviewed with the patient. Usual customary discharge instructions were provided. Disposition decision was made weighing the risks and benefits of hospitalization versus outpatient treatment, the risk for further decompensation, and the patient's wishes. The patient was stable and requested discharge. Prior to discharge, my usual and customary return precautions were reviewed with the patient - this included follow-up instructions and reason to return to the emergency department if condition worsens, does not improve as expected, or other new concerns arise. HPI General Mode of arrival: ambulatory. Date/Time Provider Initiated Documentation: 10/31/18 16:07. Limitations to Documentation: no limitations. Information obtained by: patient. HPI Narrative: 73yo m with history of recent cardiac catheterization and angioplasty, accessed left groin, procedure complicated by continuous bleeding from left groin, required additional procedure where the right groin was accessed and bleeding stopped intravascularly, presents today with chief complaint of abdominal pain. Patient notes pain since the procedure. Pain is severe. Pain is persistent. Pain localized to his lower abdomen left greater than right. Is associated bruising along his lower abdomen. No associated fever. Related Data Home Medications Medication Instructions Recorded Confirmed multivitamin [Daily Multi-Vitamin] 1 ea PO DAILY 07/14/16 10/31/18 ferrous sulfate 324 mg PO BID #60 tab 10/28/16 10/31/18 mesalamine [Lialda] 2.4 g PO DAILY tab-cap 01/08/17 10/31/18 Culturelle 1 ea PO DAILY #100 tab-cap 12/23/17 10/31/18 atorvastatin 80 mg PO DAILY #90 tab-cap 03/28/18 10/31/18 trazodone 50 mg tablet 50 mg PO PRN #90 tab 06/15/18 10/31/18 isosorbide mononitrate ER 30 mg 30 mg PO DAILY 06/24/18 10/31/18 tablet,extended release 24 hr spironolactone 25 mg tablet 12.5 mg PO DAILY #45 tab-cap 07/06/18 10/31/18 furosemide 20 mg tablet 20 mg PO DAILY #90 tab 07/28/18 10/31/18 tacrolimus 0.1 % topical ointment 1 applic TP BID PRN PRN 08/02/18 10/31/18 aspirin 81 mg tablet,delayed 81 mg PO DAILY 09/06/18 10/31/18 release hydrocortisone acetate 1 % topical See Rx Instructions TP TID PRN 10/03/18 10/31/18 packet lidocaine 5 % topical patch 1 patch TP DAILY PRN #30 each 10/07/18 10/31/18 metoprolol succinate ER 50 mg 100 mg PO DAILY #180 tab 10/17/18 10/31/18 tablet,extended release 24 hr warfarin 2.5 mg tablet See Rx Instructions PO DAILY 10/21/18 10/31/18 bupropion HCl 75 mg PO BID 10/23/18 10/31/18 clopidogrel 75 mg tablet 75 mg PO DAILY 10/27/18 10/31/18 nitroglycerin 0.4 mg sublingual 0.4 mg SL Q5-15M PRN 10/27/18 10/31/18 tablet pantoprazole 40 mg tablet,delayed 40 mg PO DAILY 10/27/18 10/31/18 release amoxicillin-pot clavulanate 1 tab PO BID #19 tab 10/31/18 [Augmentin] Previous Rx's Medication Instructions Recorded Culturelle 1 ea PO DAILY #100 tab-cap 12/23/17 atorvastatin 80 mg PO DAILY #90 tab-cap 03/28/18 trazodone 50 mg tablet 50 mg PO PRN #90 tab 06/15/18 spironolactone 25 mg tablet 12.5 mg PO DAILY #45 tab-cap 07/06/18 furosemide 20 mg tablet 20 mg PO DAILY #90 tab 07/28/18 lidocaine 5 % topical patch 1 patch TP DAILY PRN #30 each 10/07/18 metoprolol succinate ER 50 mg 100 mg PO DAILY #180 tab 10/17/18 tablet,extended release 24 hr amoxicillin-pot clavulanate 1 tab PO BID #19 tab 10/31/18 [Augmentin] Allergies Allergy/AdvReac Type Severity Reaction Status Date / Time morphine AdvReac Severe flashbacks Verified 10/31/18 15:55 from [place] sulfamethoxazole AdvReac Intermediate arthralgia, Verified 10/31/18 15:55 [From Bactrim] myalgia, sweats trimethoprim [From Bactrim] AdvReac Intermediate arthralgia, Verified 10/31/18 15:55 myalgia, sweats NSAIDS (Non-Steroidal AdvReac GI Bleeding Verified 10/31/18 15:55 Anti-Inflamma General Stated Complaint: Abd Prob MALLORIE: 3 Review of Systems Review of Systems All systems reviewed & are unremarkable except as noted in HPI and below Constitutional Denies fever(s) Gastrointestinal Reports abdominal pain and Denies nausea PFSH Medical History Atrial fibrillation (Chronic) HTN (hypertension) (Chronic) Myocardial infarction (Chronic) Ulcerative colitis (Chronic) Surgical History Presence of Watchman left atrial appendage closure device (Acute) S/P angioplasty (Acute 10/25/18) Colonoscopy (01/24/15) Endoscopy Implantation of automatic cardioverter/defibrillator, total system (AICD) (06/22/16) Implantation of automatic cardioverter/defibrillator, total system (AICD) (06/24/16) Pacemaker (07/04/16) Prostate Biopsy with imaging guidance (03/12/14) Replacement of total knee joint (~2007) Video Capsule Endoscopy (03/29/17) cardiac catheterization (06/22/16) paraesophageal diaphramtic hernia repair (02/20/18) Family History Mother Neoplasm Father No problems noted. Sister Alcohol abuse Sister No problems noted. Brother No problems noted. 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 Exam Const General: cooperative and no acute distress HENMT Mouth: moist mucous membranes Eyes Conjunctivae: normal conjunctivae Sclera: normal sclerae Neck Neck: trachea midline and supple Resp Auscultation: clear to auscultation bilaterally, no rales, no rhonchi and no wheezes Cardio Jugular venous pressure: no JVD Rate: regular rate and not tachycardic Rhythm: regular rhythm Pulses: dorsalis pedis pulses present GI Palpation: soft, not firm, no guarding, no masses, not rigid and tender in the LLQ and in the RLQ Auscultation: normal bowel sounds Skin General skin exam: ecchymosis (lower abd) Neuro General: alert, awake and tone normal Extrem General: no edema Course Vital Signs Temperature 37 C 10/31/18 15:50 Pulse 61 10/31/18 15:50 Respiratory Rate 24 10/31/18 15:50 Blood Pressure 142/69 H 10/31/18 15:50 Pulse Oximetry 96 10/31/18 15:50 Temperature 37 C 10/31/18 15:50 Temperature Source Skin 10/31/18 15:50 Pulse 61 10/31/18 15:50 Respiratory Rate 24 10/31/18 15:50 Blood Pressure 142/69 H 10/31/18 15:50 Blood Pressure Position Supine 10/31/18 15:50 Pulse Oximetry 96 10/31/18 15:50 Oxygen Delivery Method Room Air 10/31/18 15:50 Oxygen Flow Rate 0 10/31/18 15:50 Pain Level 10 10/31/18 15:50
--- NOTE | 2018-10-31 16:18 | ED.GENADUL_ITS ---
Discharge Plan Disposition Patient Disposition: HOME Discharge Details Chief Complaint: Abd Prob Clinical Impression: Abdominal wall hematoma, Diverticulitis Primary Care Provider: Ashley Haro ED Provider: Curt López Home Meds and New Rx's Prescriptions: New amoxicillin-pot clavulanate [Augmentin] 875-125 mg tablet 1 tab PO BID Qty: 19 RF: 0 Continued trazodone 50 mg tablet 50 mg PO PRN Qty: 90 RF: 3 metoprolol succinate 50 mg tablet extended release 24 hr 100 mg PO DAILY Qty: 180 RF: 3 clopidogrel 75 mg tablet 75 mg PO DAILY RF: 0 nitroglycerin 0.4 mg tablet, sublingual 0.4 mg SL Q5-15M PRNRF: 0 pantoprazole 40 mg tablet,delayed release (DR/EC) 40 mg PO DAILY RF: 0 lidocaine 5 % adhesive patch,medicated 1 patch TP DAILY PRN (Reason: neck pain, back pain) Qty: 30 RF: 3 multivitamin [Daily Multi-Vitamin] 1 EACH tablet 1 ea PO DAILY RF: 0 ferrous sulfate 324 MG tablet,delayed release (DR/EC) 324 mg PO BID Qty: 60 RF: 3 mesalamine [Lialda] 1.2 GM tablet,delayed release (DR/EC) 2.4 g PO DAILY RF: 0 Culturelle 1 EACH capsule 1 ea PO DAILY Qty: 100 RF: 6 atorvastatin 80 MG tablet 80 mg PO DAILY Qty: 90 RF: 3 isosorbide mononitrate 30 mg tablet extended release 24 hr 30 mg PO DAILY RF: 0 spironolactone 25 mg tablet 12.5 mg PO DAILY Qty: 45 RF: 3 furosemide 20 mg tablet 20 mg PO DAILY Qty: 90 RF: 3 tacrolimus 0.1 % ointment 1 applic TP BID PRN PRNRF: 0 aspirin [Adult Low Dose Aspirin] 81 mg tablet,delayed release (DR/EC) 81 mg PO DAILY RF: 0 hydrocortisone acetate 1 % packet See Patient Comments TP TID PRNRF: 0 bupropion HCl 75 MG tablet 75 mg PO BID RF: 0 No Action warfarin 2.5 mg tablet See Patient Comments PO DAILY RF: 0 Discharge Instructions Instructions: Diverticulitis (ED), Hematoma (ED) Additional Instructions: Please maintain a clear liquid diet tonight and tomorrow morning. Tomorrow afternoon you may advance her diet to bland soft foods. Continue bland soft foods diet for the next 3 days. Please take antibiotic as prescribed. Stop taking Coumadin today and tomorrow. You may restart Coumadin the Wednesday. Please contact your primary care physician to arrange follow-up. Please contact your financial assistant to arrange follow-up. Return to the ER for any worsening or new concerning symptoms. Referrals: Ashley Haro NP [Primary Care Provider] - Medical Decision Making 16:30 --73-year-old male presents 6 days status post cardiac catheterization with access through left femoral artery, complicated by persistent bleeding from left femoral access site requiring additional procedure to achieve hemostasis, on Coumadin and Plavix, here with persistent lower abdominal pain, tender palpation lower abdomen. Concern for acute surgical pathology including pseudoaneurysm versus persistent intra-abdominal hemorrhage versus other. Plan to obtain CTA of the abdomen and pelvis. --CT the abdomen pelvis interpreted by radiology: IMPRESSION: 1. soft tissue Opacities and strandy densities in the left groin may represent contusion. No evidence of active extravasation. 2. Mild opacities in the lower lobes may represent atelectasis or pneumonia. 3. Diverticulosis and Bowel wall thickening along the rectosigmoid colon. Mild pericolonic inflammatory changes. No evidence of perforation or abscess formation or bleeding. Findings consistent with acute diverticulitis. I called and spoke with vascular surgery on-call at [facility] who reviewed CT and also finds no extravasation and no pseudoaneurysm, they recommend holding Coumadin if possible but recommend consult with cardiology. Plan to treat diverticulitis with Augmentin. 19:19 --I spoke with cardiology at [facility] who recommends holding Coumadin today and tomorrow and resuming the following day. The recommended outpatient follow- up. Results and discussions with consultants were reviewed with the patient. Usual customary discharge instructions were provided. Disposition decision was made weighing the risks and benefits of hospitalization versus outpatient treatment, the risk for further decompensation, and the patient's wishes. The patient was stable and requested discharge. Prior to discharge, my usual and customary return precautions were reviewed with the patient - this included follow-up instructions and reason to return to the emergency department if condition worsens, does not improve as expected, or other new concerns arise. HPI General Mode of arrival: ambulatory . Date/Time Provider Initiated Documentation: 10/31/18 16:07 . Limitations to Documentation: no limitations . Information obtained by: patient . HPI Narrative: 73yo m with history of recent cardiac catheterization and angioplasty, accessed left groin, procedure complicated by continuous bleeding from left groin, required additional procedure where the right groin was accessed and bleeding stopped intravascularly, presents today with chief complaint of abdominal pain. Patient notes pain since the procedure. Pain is severe. Pain is persistent. Pain localized to his lower abdomen left greater than right. Is associated bruising along his lower abdomen. No associated fever. Related Data Home Medications Medication Instructions Recorded Confirmed multivitamin [Daily Multi-Vitamin] 1 ea PO DAILY 07/14/16 10/31/18 ferrous sulfate 324 mg PO BID #60 tab 10/28/16 10/31/18 mesalamine [Lialda] 2.4 g PO DAILY tab-cap 01/08/17 10/31/18 Culturelle 1 ea PO DAILY #100 tab-cap 12/23/17 10/31/18 atorvastatin 80 mg PO DAILY #90 tab-cap 03/28/18 10/31/18 trazodone 50 mg tablet 50 mg PO PRN #90 tab 06/15/18 10/31/18 isosorbide mononitrate ER 30 mg 30 mg PO DAILY 06/24/18 10/31/18 tablet,extended release 24 hr spironolactone 25 mg tablet 12.5 mg PO DAILY #45 tab-cap 07/06/18 10/31/18 furosemide 20 mg tablet 20 mg PO DAILY #90 tab 07/28/18 10/31/18 tacrolimus 0.1 % topical ointment 1 applic TP BID PRN PRN 08/02/18 10/31/18 aspirin 81 mg tablet,delayed 81 mg PO DAILY 09/06/18 10/31/18 release hydrocortisone acetate 1 % topical See Rx Instructions TP TID PRN 10/03/18 10/31/18 packet lidocaine 5 % topical patch 1 patch TP DAILY PRN #30 each 10/07/18 10/31/18 metoprolol succinate ER 50 mg 100 mg PO DAILY #180 tab 10/17/18 10/31/18 tablet,extended release 24 hr warfarin 2.5 mg tablet See Rx Instructions PO DAILY 10/21/18 10/31/18 bupropion HCl 75 mg PO BID 10/23/18 10/31/18 clopidogrel 75 mg tablet 75 mg PO DAILY 10/27/18 10/31/18 nitroglycerin 0.4 mg sublingual 0.4 mg SL Q5-15M PRN 10/27/18 10/31/18 tablet pantoprazole 40 mg tablet,delayed 40 mg PO DAILY 10/27/18 10/31/18 release amoxicillin-pot clavulanate 1 tab PO BID #19 tab 10/31/18 [Augmentin] Previous Rx's Medication Instructions Recorded Culturelle 1 ea PO DAILY #100 tab-cap 12/23/17 atorvastatin 80 mg PO DAILY #90 tab-cap 03/28/18 trazodone 50 mg tablet 50 mg PO PRN #90 tab 06/15/18 spironolactone 25 mg tablet 12.5 mg PO DAILY #45 tab-cap 07/06/18 furosemide 20 mg tablet 20 mg PO DAILY #90 tab 07/28/18 lidocaine 5 % topical patch 1 patch TP DAILY PRN #30 each 10/07/18 metoprolol succinate ER 50 mg 100 mg PO DAILY #180 tab 10/17/18 tablet,extended release 24 hr amoxicillin-pot clavulanate 1 tab PO BID #19 tab 10/31/18 [Augmentin] Allergies Allergy/AdvReac Type Severity Reaction Status Date / Time morphine AdvReac Severe flashbacks Verified 10/31/18 15:55 from [place] sulfamethoxazole AdvReac Intermediate arthralgia, Verified 10/31/18 15:55 [From Bactrim] myalgia, sweats trimethoprim [From Bactrim] AdvReac Intermediate arthralgia, Verified 10/31/18 15:55 myalgia, sweats NSAIDS (Non-Steroidal AdvReac GI Bleeding Verified 10/31/18 15:55 Anti-Inflamma General Stated Complaint: Abd Prob MALLORIE: 3 Review of Systems Review of Systems All systems reviewed & are unremarkable except as noted in HPI and below Constitutional Denies fever(s) Gastrointestinal Reports abdominal pain and Denies nausea PFSH Medical History Atrial fibrillation (Chronic) HTN (hypertension) (Chronic) Myocardial infarction (Chronic) Ulcerative colitis (Chronic) Surgical History Presence of Watchman left atrial appendage closure device (Acute) S/P angioplasty (Acute 10/25/18) Colonoscopy (01/24/15) Endoscopy Implantation of automatic cardioverter/defibrillator, total system (AICD) (06/22/16) Implantation of automatic cardioverter/defibrillator, total system (AICD) (06/24/16) Pacemaker (07/04/16) Prostate Biopsy with imaging guidance (03/12/14) Replacement of total knee joint (~2007) Video Capsule Endoscopy (03/29/17) cardiac catheterization (06/22/16) paraesophageal diaphramtic hernia repair (02/20/18) Family History Mother Neoplasm Father No problems noted. Sister Alcohol abuse Sister No problems noted. Brother No problems noted. 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 Exam Const General: cooperative and no acute distress HENMT Mouth: moist mucous membranes Eyes Conjunctivae: normal conjunctivae Sclera: normal sclerae Neck Neck: trachea midline and supple Resp Auscultation: clear to auscultation bilaterally, no rales, no rhonchi and no wheezes Cardio Jugular venous pressure: no JVD Rate: regular rate and not tachycardic Rhythm: regular rhythm Pulses: dorsalis pedis pulses present GI Palpation: soft, not firm, no guarding, no masses, not rigid and tender in the LLQ and in the RLQ Auscultation: normal bowel sounds Skin General skin exam: ecchymosis (lower abd) Neuro General: alert, awake and tone normal Extrem General: no edema Course Vital Signs Temperature 37 C 10/31/18 15:50 Pulse 61 10/31/18 15:50 Respiratory Rate 24 10/31/18 15:50 Blood Pressure 142/69 H 10/31/18 15:50 Pulse Oximetry 96 10/31/18 15:50 Temperature 37 C 10/31/18 15:50 Temperature Source Skin 10/31/18 15:50 Pulse 61 10/31/18 15:50 Respiratory Rate 24 10/31/18 15:50 Blood Pressure 142/69 H 10/31/18 15:50 Blood Pressure Position Supine 10/31/18 15:50 Pulse Oximetry 96 10/31/18 15:50 Oxygen Delivery Method Room Air 10/31/18 15:50 Oxygen Flow Rate 0 10/31/18 15:50 Pain Level 10 10/31/18 15:50
[2018-10-31 16:28] LABS: Abs Immature Grans 0.03 k/cumm (0.0-0.09); Absolute Basophil Count 0.06 k/cumm (0.0-0.2); Absolute Eosinophil Count 0.66 k/cumm (0.0-0.7); Absolute Lymphocyte Count 1.16 k/cumm (1.2-3.4); Absolute Monocyte Count 1.06 k/cumm (0.11-0.7); Absolute Neutrophil Count 6.24 k/cumm (1.2-6.7); Basophils % 0.7; Eosinophils % 7.2; HCT 36.1 % (40.0-50.0); HGB 12.1 g/dL (13.5-17.5); Immature Grans % 0.3; Lymphocytes % 12.6; Mean Corp. HGB Concentration 33.5 g/dL (32.0-36.0); Mean Corpuscular Volume 92.6 fL (80-95); Monocytes % 11.5; Neutrophils % 67.7; Platelet Count 268 x1000/uL (130-400); RBC Distribution Width 14.1 % (11.8-14.1); White Blood Cell Count 9.21 k/cumm (4.4-10.8)
[2018-10-31 16:40] LABS: INR 1.3 (0.9-1.1); Prothrombin Time 12.7 sec (9.3-11.0)
[2018-10-31 16:42] LABS: ALT 29 U/L (12-78); AST 25 U/L (15-37); Albumin 3.3 g/dL (3.4-5.0); Alkaline Phosphatase 136 U/L (46-116); Anion Gap 8.5 mmol/L (3-11); BUN 16 mg/dL (7-18); Bilirubin, Total 0.9 mg/dL (0.2-1.0); CO2 30.5 mmol/L (21.0-32.0); CREATININE 1.12 mg/dL (0.70-1.30); Calcium 9.1 mg/dL (8.5-10.1); Chloride 98 mmol/L (98-107); Glucose 94 mg/dL (70-100); Lipase 135 U/L (73-393); Potassium 3.7 mmol/L (3.5-5.1); Sodium 137 mmol/L (136-145); Total Protein 7.5 g/dL (6.4-8.2)
[2018-10-31] MEDS: Omnipaque 350 MG/ML 100 ML BTL IJ (17:16)
--- NOTE | 2018-10-31 17:42 | DI.VRAD_ITS ---
EXAM: CT Angiography Abdomen and Pelvis With Contrast EXAM DATE/TIME: 10/31/2018 4:15 PM CLINICAL HISTORY: 73 years old, male; Pain; Other: Lower abd/groin; Patient HX: 1 wk post cath with pain in lwr abd/groin TECHNIQUE: Axial computed tomographic angiography images of the abdomen and pelvis with intravenous contrast material, including non-contrast images if performed. MIP reconstructed images were created and reviewed. COMPARISON: CR PELVIS AP 04/15/2015 8:02 AM FINDINGS: Lungs: Mild opacities in the lower lobes may represent atelectasis or pneumonia. Heart: Cardiomegaly VASCULATURE: Aorta: No aortic aneurysm. No aortic dissection. Celiac trunk and mesenteric arteries: No occlusion or significant stenosis. Renal arteries: No occlusion or significant stenosis. Right iliac arteries: No occlusion or significant stenosis. Left iliac arteries: No occlusion or significant stenosis. ABDOMEN: Liver: No mass. Gallbladder and bile ducts: Unremarkable. No calcified stones. No ductal dilation. Pancreas: Unremarkable. No mass. No ductal dilation. Spleen: Unremarkable. No splenomegaly. Adrenals: Unremarkable. No mass. Kidneys and ureters: 2.6 cm cyst in the right kidney Stomach and bowel: Diverticulosis and Bowel wall thickening along the rectosigmoid colon. Mild pericolonic inflammatory changes. No evidence of perforation or abscess formation or bleeding. Findings consistent with acute diverticulitis. Appendix: No evidence of appendicitis. PELVIS: Bladder: Unremarkable. No mass. Reproductive: Soft tissue opacities and strandy densities in the left groin may represent contusion. No evidence of active extravasation. ABDOMEN and PELVIS: Intraperitoneal space: Unremarkable. No free air. No significant fluid collection. Bones/joints: Vertebroplasty of T12 Soft tissues: Unremarkable. Lymph nodes: Unremarkable. No enlarged lymph nodes. IMPRESSION: 1. soft tissue Opacities and strandy densities in the left groin may represent contusion. No evidence of active extravasation. 2. Mild opacities in the lower lobes may represent atelectasis or pneumonia. 3. Diverticulosis and Bowel wall thickening along the rectosigmoid colon. Mild pericolonic inflammatory changes. No evidence of perforation or abscess formation or bleeding. Findings consistent with acute diverticulitis. Dictated and Authenticated by: Gayla Edwards MD. Ordering:REGAN Elias MD
[2018-10-31] MEDS: Amoxicillin 875/Clav. 125 TAB PO (18:58)
== END 2018-10-31 19:45 | disposition home or self-care (01) ==
PROVIDERS: Emergency Provider Student in an Organized Health Care Education/Training Program; PCP Nurse Practitioner
DX: M79.81 Nontraumatic hematoma of soft tissue (principal); R10.30 Lower abdominal pain, unspecified; K57.92 Diverticulitis of intestine, part unspecified, without perforation or abscess without bleeding; Z79.01 Long term (current) use of anticoagulants; Z98.890 Other specified postprocedural states; I10 Essential (primary) hypertension
CPT/HCPCS: 36415; 80053; 83690; 86850; 86900; 86901; 93005; 99285; 74174; 85025; 85610; 93010; 99284; J3490

== ENCOUNTER 2018-11-15 11:44 | Outpatient (RCR) | payer MEDICARE, OTHER, SELFPAY | END 2018-11-20 23:59 | disposition home or self-care (01) | LOC: CR 11:44 | PROVIDERS: PCP Nurse Practitioner; Visit Provider Family Medicine | DX: Z51.89 Encounter for other specified aftercare (principal) ==

== ENCOUNTER 2018-11-21 09:59 | Outpatient (RCR) | payer MEDICARE, OTHER, SELFPAY | END 2018-12-20 23:59 | disposition home or self-care (01) | LOC: CR 09:59 | PROVIDERS: PCP Nurse Practitioner; Visit Provider Family Medicine | DX: Z51.89 Encounter for other specified aftercare (principal) | CPT/HCPCS: S9472 ==

== ENCOUNTER 2018-12-19 08:00 | Outpatient (RCR) | payer MEDICARE, OTHER, SELFPAY | END 2018-12-20 23:59 | disposition home or self-care (01) | LOC: CR 08:00 | PROVIDERS: PCP Nurse Practitioner; Visit Provider Family Medicine | DX: I25.2 Old myocardial infarction (principal); Z95.5 Presence of coronary angioplasty implant and graft; Z51.89 Encounter for other specified aftercare | CPT/HCPCS: S9472 ==

== ENCOUNTER 2019-01-20 11:53 | Outpatient (RCR) | payer MEDICARE, OTHER, SELFPAY | END 2019-01-20 23:59 | disposition home or self-care (01) | LOC: CR 11:53 | PROVIDERS: PCP Nurse Practitioner; Visit Provider Family Medicine | DX: Z51.89 Encounter for other specified aftercare (principal); I25.2 Old myocardial infarction; Z95.5 Presence of coronary angioplasty implant and graft | CPT/HCPCS: S9472 ==

== ENCOUNTER 2019-02-17 11:20 | Outpatient (RCR) | payer MEDICARE, OTHER, SELFPAY | END 2019-02-19 23:59 | disposition home or self-care (01) | LOC: CR 11:20 | PROVIDERS: PCP Nurse Practitioner; Visit Provider Family Medicine | DX: I25.2 Old myocardial infarction (principal); Z95.5 Presence of coronary angioplasty implant and graft; Z51.89 Encounter for other specified aftercare | CPT/HCPCS: S9472 ==

== ENCOUNTER 2019-02-21 07:50 | Outpatient (REF) | payer MEDICARE, OTHER, SELFPAY ==
[2019-02-24 14:23] LABS: Calprotectin 24.7 mcg/g
== END 2019-02-21 08:10 ==
LOC: LBN 07:50
PROVIDERS: PCP Nurse Practitioner; Visit Provider Nurse Practitioner Adult Health
DX: K50.119 Crohn's disease of large intestine with unspecified complications (principal)
CPT/HCPCS: 83993; 87324

== ENCOUNTER 2019-03-08 14:13 | Outpatient (RCR) | payer MEDICARE, OTHER, SELFPAY | END 2019-03-22 23:59 | disposition home or self-care (01) | LOC: CR 14:13 | PROVIDERS: PCP Nurse Practitioner; Visit Provider Family Medicine | DX: I25.2 Old myocardial infarction (principal); Z95.5 Presence of coronary angioplasty implant and graft; Z51.89 Encounter for other specified aftercare | CPT/HCPCS: S9472 ==

== ENCOUNTER 2019-03-13 11:46 | Outpatient (RCR) | payer SELFPAY | END 2019-03-13 11:52 | disposition other institution (70) | LOC: CR 11:46 | PROVIDERS: PCP Nurse Practitioner; Visit Provider Family Medicine | DX: Z51.89 Encounter for other specified aftercare (principal) ==

== ENCOUNTER 2019-03-30 14:20 | Outpatient (CLI) | payer MEDICARE, OTHER, SELFPAY ==
[2019-03-30 15:18] LABS: Abs Immature Grans 0.02 k/cumm (0.0-0.09); Absolute Basophil Count 0.03 k/cumm (0.0-0.2); Absolute Eosinophil Count 0.13 k/cumm (0.0-0.7); Absolute Lymphocyte Count 1.22 k/cumm (1.2-3.4); Absolute Monocyte Count 0.57 k/cumm (0.11-0.7); Absolute Neutrophil Count 5.45 k/cumm (1.2-6.7); Basophils % 0.4; Eosinophils % 1.8; HCT 38.1 % (40.0-50.0); HGB 12.5 g/dL (13.5-17.5); Immature Grans % 0.3; Lymphocytes % 16.4; Mean Corp. HGB Concentration 32.8 g/dL (32.0-36.0); Mean Corpuscular Hemoglobin 31.5 pg (27.0-33.0); Mean Platelet Volume 9.9 fL (8.0-11.0); Monocytes % 7.7; Neutrophils % 73.4; Platelet Count 251 x1000/uL (130-400); RBC 3.97 m/cumm (4.50-6.00); RBC Distribution Width 14.9 % (11.8-14.1); White Blood Cell Count 7.42 k/cumm (4.4-10.8)
[2019-03-30 15:58] LABS: Ferritin 33 ng/mL (8-388)
[2019-03-30 16:23] LABS: Iron 51 ug/dL (50-175); Total Iron Binding Capacity 373 ug/dL (250-450); Transferrin Sat 14 % (20-55)
== END 2019-03-30 14:40 ==
PROVIDERS: PCP Nurse Practitioner; Visit Provider Nurse Practitioner Family
DX: D64.9 Anemia, unspecified (principal)
CPT/HCPCS: 36415; 82728; 83540; 83550; 85025

== ENCOUNTER 2019-04-19 02:27 | Outpatient (RCR) | payer MEDICARE, OTHER, SELFPAY ==
[2019-04-12] MEDS: Normal Saline Flush 10 ML SYR IVP (09:08)
[2019-04-19] MEDS: Normal Saline Flush 10 ML SYR IVP (11:05)
== END 2019-04-22 23:59 | disposition home or self-care (01) ==
LOC: INF 02:27
PROVIDERS: PCP Nurse Practitioner; Visit Provider Nurse Practitioner
DX: D50.0 Iron deficiency anemia secondary to blood loss (chronic) (principal)
CPT/HCPCS: 96365; J1756

== ENCOUNTER 2019-04-21 07:00 | Outpatient (RCR) | payer SELFPAY | END 2019-04-22 23:59 | disposition home or self-care (01) | LOC: CR 07:00 | PROVIDERS: PCP Nurse Practitioner; Visit Provider Family Medicine | DX: I25.2 Old myocardial infarction (principal); Z95.5 Presence of coronary angioplasty implant and graft; Z51.89 Encounter for other specified aftercare | CPT/HCPCS: S9472 ==

== ENCOUNTER 2019-04-26 01:11 | Outpatient (RCR) | payer MEDICARE, OTHER, SELFPAY ==
[2019-04-26] MEDS: Normal Saline Flush 10 ML SYR IVP (11:27)
== END 2019-05-22 23:59 | disposition home or self-care (01) ==
LOC: INF 01:11
PROVIDERS: PCP Nurse Practitioner; Visit Provider Nurse Practitioner
DX: D50.9 Iron deficiency anemia, unspecified (principal)
CPT/HCPCS: 96365; 96366; J1756

== ENCOUNTER 2019-05-05 16:40 | Outpatient (REF) | payer MEDICARE, OTHER, SELFPAY ==
[2019-05-05 18:49] LABS: Abs Immature Grans 0.02 k/cumm (0.0-0.09); Absolute Basophil Count 0.03 k/cumm (0.0-0.2); Absolute Eosinophil Count 0.14 k/cumm (0.0-0.7); Absolute Lymphocyte Count 0.84 k/cumm (1.2-3.4); Absolute Monocyte Count 0.82 k/cumm (0.11-0.7); Absolute Neutrophil Count 4.45 k/cumm (1.2-6.7); Basophils % 0.5; Eosinophils % 2.2; HCT 41.1 % (40.0-50.0); Immature Grans % 0.3; Lymphocytes % 13.3; Mean Corp. HGB Concentration 31.6 g/dL (32.0-36.0); Mean Corpuscular Volume 98.1 fL (80-95); Mean Platelet Volume 10.9 fL (8.0-11.0); Neutrophils % 70.7; Platelet Count 212 x1000/uL (130-400); RBC 4.19 m/cumm (4.50-6.00); RBC Distribution Width 14.3 % (11.8-14.1)
[2019-05-05 19:02] LABS: ALT 48 U/L (16-63); AST 39 U/L (15-37); Albumin 3.7 g/dL (3.4-5.0); Alkaline Phosphatase 139 U/L (46-116); Anion Gap 9.2 mmol/L (3-11); BUN 27 mg/dL (7-18); Bilirubin, Total 0.3 mg/dL (0.2-1.0); CO2 29.8 mmol/L (21.0-32.0); CREATININE 1.39 mg/dL (0.70-1.30); Calcium 9.3 mg/dL (8.5-10.1); Chloride 103 mmol/L (98-107); Estimated GFR 50.09 (mL/min/1.73m2); Glucose 83 mg/dL (70-100); Potassium 4.3 mmol/L (3.5-5.1); Sodium 142 mmol/L (136-145); TSH (W/Ref FT4) 1.63 uIU/mL (0.36-3.74); Total Protein 6.8 g/dL (6.4-8.2)
== END 2019-05-05 17:00 ==
LOC: LBO 16:40
PROVIDERS: PCP Nurse Practitioner; Referring Provider Family Medicine; Visit Provider Family Medicine
DX: R53.83 Other fatigue (principal); K92.2 Gastrointestinal hemorrhage, unspecified; D50.9 Iron deficiency anemia, unspecified
CPT/HCPCS: 80053; 84443; 85025

== ENCOUNTER 2019-05-08 11:50 | Outpatient (CLI) | payer MEDICARE, OTHER, SELFPAY ==
--- NOTE | 2019-05-08 09:43 | DI.RAD_ITS ---
SYMPTOM/DIAGNOSIS: DYSPNEA ON EXERTION, WT GAIN, ? CHF, R53.83 PA AND LATERAL CHEST: The lungs are free of infiltrate. There is no pleural effusion. Cardiomegaly is demonstrated. Pacing wires are in stable position when compared with prior images. The hilar structures, mediastinum and tracheal air column are intact. SUMMARY: Cardiomegaly. No evidence of congestive failure or pneumonia. No appreciable interval change when compared with a prior examination of 10/23/18.
== END 2019-05-08 12:10 ==
PROVIDERS: PCP Nurse Practitioner; Visit Provider Family Medicine
DX: R06.09 Other forms of dyspnea (principal); R53.83 Other fatigue; I51.7 Cardiomegaly
CPT/HCPCS: 71046

== ENCOUNTER 2019-05-22 07:00 | Outpatient (RCR) | payer SELFPAY | END 2019-05-22 23:59 | disposition home or self-care (01) | LOC: CR 07:00 | PROVIDERS: PCP Nurse Practitioner; Visit Provider Family Medicine | DX: I25.2 Old myocardial infarction (principal); Z95.5 Presence of coronary angioplasty implant and graft; Z51.89 Encounter for other specified aftercare | CPT/HCPCS: S9472 ==

== ENCOUNTER 2019-06-20 10:52 | Outpatient (REF) | payer MEDICARE, OTHER, SELFPAY | END 2019-06-20 11:12 | LOC: LBN 10:52 | PROVIDERS: PCP Nurse Practitioner; Visit Provider Nurse Practitioner | DX: R82.90 Unspecified abnormal findings in urine (principal) | CPT/HCPCS: 87077; 87086; 87186 ==

== ENCOUNTER 2019-06-21 11:35 | Outpatient (RCR) | payer SELFPAY | END 2019-06-22 23:59 | disposition home or self-care (01) | LOC: CR 11:35 | PROVIDERS: PCP Nurse Practitioner; Visit Provider Family Medicine | DX: I25.2 Old myocardial infarction (principal); Z95.5 Presence of coronary angioplasty implant and graft; Z51.89 Encounter for other specified aftercare ==

== ENCOUNTER 2019-07-19 11:46 | Outpatient (RCR) | payer SELFPAY | END 2019-07-22 23:59 | disposition home or self-care (01) | LOC: CR 11:46 | PROVIDERS: PCP Nurse Practitioner; Visit Provider Family Medicine | DX: I25.2 Old myocardial infarction (principal); Z95.5 Presence of coronary angioplasty implant and graft; Z51.89 Encounter for other specified aftercare | CPT/HCPCS: S9472 ==

== ENCOUNTER 2019-08-21 14:42 | Outpatient (RCR) | payer SELFPAY | END 2019-08-22 23:59 | disposition home or self-care (01) | LOC: CR 14:42 | PROVIDERS: PCP Nurse Practitioner; Visit Provider Family Medicine | DX: I25.2 Old myocardial infarction (principal); Z95.5 Presence of coronary angioplasty implant and graft; Z51.89 Encounter for other specified aftercare | CPT/HCPCS: S9472 ==

== ENCOUNTER 2019-09-22 11:00 | Outpatient (RCR) | payer SELFPAY | END 2019-09-22 23:59 | disposition home or self-care (01) | LOC: CR 11:00 | PROVIDERS: PCP Nurse Practitioner; Visit Provider Family Medicine | DX: I25.2 Old myocardial infarction (principal); Z95.5 Presence of coronary angioplasty implant and graft; Z51.89 Encounter for other specified aftercare | CPT/HCPCS: S9472 ==

== ENCOUNTER 2019-10-09 15:21 | Outpatient (CLI) | payer MEDICARE, OTHER, SELFPAY ==
--- NOTE | 2019-10-09 15:15 | DI.RAD_ITS ---
EXAM: XR HIP LT COMPLETE AP PELVIS INDICATION: LEFT HIP PAIN AND INSTABILITY FOR 1 MONTH. M25.552. COMPARISON: PELVIS AP from 04/15/2015 TECHNIQUE: 2D digital imaging was performed. FINDINGS: Moderately severe degenerative changes are seen in the lower visualized portions of the lumbar spine. In the hips, there is joint space narrowing and subchondral sclerosis. No acute fracture or disloc ation is present. The sacroiliac joints and symphysis pubis are intact. There are surgical clips in ferior to the pelvis, which may reflect prior vasectomy. IMPRESSION: Mild degenerative changes of the hips bilaterally.
== END 2019-10-09 15:41 ==
PROVIDERS: PCP Nurse Practitioner; Visit Provider Nurse Practitioner
DX: M25.552 Pain in left hip (principal); M16.0 Bilateral primary osteoarthritis of hip; M25.352 Other instability, left hip
CPT/HCPCS: 73502

== ENCOUNTER 2019-10-18 09:52 | Outpatient (CLI) | payer MEDICARE, OTHER, SELFPAY ==
[2019-10-18 10:23] LABS: HCT 45.9 % (40.0-50.0); HGB 15.3 g/dL (13.5-17.5); Mean Corp. HGB Concentration 33.3 g/dL (32.0-36.0); Mean Corpuscular Hemoglobin 31.4 pg (27.0-33.0); Mean Corpuscular Volume 94.3 fL (80-95); Mean Platelet Volume 10.4 fL (8.0-11.0); Platelet Count 244 x1000/uL (130-400); RBC 4.87 m/cumm (4.50-6.00); RBC Distribution Width 13.7 % (11.8-14.1); White Blood Cell Count 6.53 k/cumm (4.4-10.8)
[2019-10-18 11:24] LABS: Total Iron Binding Capacity 339 ug/dL (250-450)
[2019-10-18 11:29] LABS: ALT 51 U/L (16-63); AST 43 U/L (15-37); Albumin 4.3 g/dL (3.4-5.0); Alkaline Phosphatase 124 U/L (46-116); Anion Gap 8.7 mmol/L (3-11); BUN 15 mg/dL (7-18); Bilirubin, Total 0.7 mg/dL (0.2-1.0); CO2 31.3 mmol/L (21.0-32.0); CREATININE 1.07 mg/dL (0.70-1.30); Calcium 9.9 mg/dL (8.5-10.1); Calculated LDL 67 mg/dL (<100); Chloride 99 mmol/L (98-107); Cholesterol 142 mg/dL (<200); Ferritin 91 ng/mL (26-388); Glucose 115 mg/dL (74-106); HDL Cholesterol 62 mg/dL (40-60); Potassium 4.5 mmol/L (3.5-5.1); Sodium 139 mmol/L (136-145); Total Protein 7.6 g/dL (6.4-8.2); Triglyceride 65 mg/dL (<150)
== END 2019-10-18 10:12 ==
PROVIDERS: PCP Nurse Practitioner; Visit Provider Nurse Practitioner
DX: D64.9 Anemia, unspecified (principal); E78.5 Hyperlipidemia, unspecified; E88.81 Metabolic syndrome and other insulin resistance
CPT/HCPCS: 36415; 80053; 80061; 85027; 82728; 83550

== ENCOUNTER 2019-10-20 13:34 | Outpatient (RCR) | payer SELFPAY | END 2019-10-21 23:59 | disposition home or self-care (01) | LOC: CR 13:34 | PROVIDERS: PCP Nurse Practitioner; Visit Provider Family Medicine | DX: I25.2 Old myocardial infarction (principal); Z95.5 Presence of coronary angioplasty implant and graft; Z51.89 Encounter for other specified aftercare | CPT/HCPCS: 73502; S9472 ==

== ENCOUNTER → 2019-10-30 08:35 | Outpatient (BNVA) | payer MEDICARE, OTHER, SELFPAY | PROVIDERS: PCP Nurse Practitioner; Referring Provider Nurse Practitioner; Visit Provider Student in an Organized Health Care Education/Training Program | DX: M70.62 Trochanteric bursitis, left hip (principal); M25.552 Pain in left hip; I10 Essential (primary) hypertension | CPT/HCPCS: 20610; 99203; 99214; J1040 ==

== ENCOUNTER 2019-10-30 11:00 | Outpatient (RCR) | payer SELFPAY | END 2019-11-21 23:59 | disposition home or self-care (01) | LOC: CR 11:00 | PROVIDERS: PCP Nurse Practitioner; Visit Provider Family Medicine | DX: I25.2 Old myocardial infarction (principal); Z95.5 Presence of coronary angioplasty implant and graft; Z51.89 Encounter for other specified aftercare | CPT/HCPCS: S9472 ==

== ENCOUNTER 2020-03-19 03:27 | Outpatient (CLI) | payer MEDICARE, OTHER, SELFPAY ==
[2020-03-19 12:48] LABS: Abs Immature Grans 0.03 10^3/uL (0.0-0.06); Absolute Basophil Count 0.04 10^3/uL (0.0-0.2); Absolute Lymphocyte Count 0.83 10^3/uL (1.2-3.4); Absolute Monocyte Count 0.89 10^3/uL (0.1-0.8); Absolute Neutrophil Count 5.96 10^3/uL (1.2-6.7); Basophils % 0.5; Eosinophils % 2.5; HCT 37.8 % (40.0-50.0); HGB 12.6 g/dL (13.5-17.5); Immature Grans % 0.4; Lymphocytes % 10.4; MCH 31.4 pg (27.0-33.0); MCHC 33.3 % (32.0-36.0); MCV 94.3 fL (80-95); MPV 9.7 fL (8.0-11.0); Monocytes % 11.2; Platelet Count 219 10^3/uL (130-400); RBC 4.01 10^6/uL (4.36-5.78); RDW 12.7 % (11.8-14.1); WBC 7.95 10^3/uL (4.4-10.8)
[2020-03-19 14:49] LABS: RDW-SD 44.3 fL
== END 2020-03-19 03:47 ==
PROVIDERS: PCP Nurse Practitioner; Visit Provider Internal Medicine Gastroenterology
DX: K92.2 Gastrointestinal hemorrhage, unspecified (principal)
CPT/HCPCS: 36415; 85025

== ENCOUNTER 2020-04-09 02:46 | Outpatient (CLI) | payer MEDICARE, OTHER, SELFPAY ==
[2020-04-09 12:34] LABS: HCT 40.9 % (40.0-50.0); HGB 13.7 g/dL (13.5-17.5); MCH 31.5 pg (27.0-33.0); MCHC 33.5 % (32.0-36.0); MPV 9.9 fL (8.0-11.0); Platelet Count 253 10^3/uL (130-400); RBC 4.35 10^6/uL (4.36-5.78); RDW 12.6 % (11.8-14.1); RDW-SD 43.6 fL; WBC 7.48 10^3/uL (4.4-10.8)
[2020-04-09 13:48] LABS: Iron 56 ug/dL (65-175)
[2020-04-09 14:01] LABS: Ferritin 50 ng/mL (26-388)
== END 2020-04-09 03:06 ==
PROVIDERS: PCP Nurse Practitioner; Visit Provider Nurse Practitioner
DX: D50.9 Iron deficiency anemia, unspecified (principal)
CPT/HCPCS: 36415; 85027; 82728; 83540

== ENCOUNTER 2020-07-03 04:43 | Outpatient (CLI) | payer MEDICARE, OTHER, SELFPAY ==
[2020-07-03 12:25] LABS: HCT 35.3 % (40.0-50.0); MCH 28.1 pg (27.0-33.0); MCHC 31.2 % (32.0-36.0); MCV 90.3 fL (80-95); MPV 9.3 fL (8.0-11.0); Platelet Count 281 10^3/uL (130-400); RBC 3.91 10^6/uL (4.36-5.78); RDW 13.3 % (11.8-14.1); RDW-SD 43.4 fL; WBC 6.48 10^3/uL (4.4-10.8)
[2020-07-03 12:44] LABS: Hemoglobin A1C 5.6 % (<5.7)
[2020-07-03 13:04] LABS: Iron 35 ug/dL (65-175); Total Iron Binding Capacity 428 ug/dL (250-450)
[2020-07-03 13:17] LABS: ALT 36 U/L (16-63); AST 28 U/L (15-37); Alkaline Phosphatase 135 U/L (46-116); Anion Gap 6.6 mmol/L (3-11); BUN 22 mg/dL (7-18); Bilirubin, Total 0.5 mg/dL (0.2-1.0); CO2 32.4 mmol/L (21.0-32.0); CREATININE 1.16 mg/dL (0.70-1.30); Calcium 9.1 mg/dL (8.5-10.1); Calculated LDL 51 mg/dL (<100); Chloride 102 mmol/L (98-107); Cholesterol 142 mg/dL (<200); Ferritin 10 ng/mL (26-388); Glucose 108 mg/dL (74-106); HDL Cholesterol 84 mg/dL (40-60); Potassium 4.3 mmol/L (3.5-5.1); Sodium 141 mmol/L (136-145); Total Protein 7.6 g/dL (6.4-8.2); Triglyceride 38 mg/dL (<150)
[2020-07-12 17:49] LABS: Transferrin 362 mg/dL (200-360)
== END 2020-07-03 05:03 ==
PROVIDERS: PCP Nurse Practitioner; Visit Provider Nurse Practitioner
DX: D50.9 Iron deficiency anemia, unspecified (principal); E66.9 Obesity, unspecified; E78.5 Hyperlipidemia, unspecified; I27.0 Primary pulmonary hypertension; D64.9 Anemia, unspecified; I20.0 Unstable angina; R73.01 Impaired fasting glucose
CPT/HCPCS: 36415; 80053; 80061; 85027; 82728; 83036; 83540; 83550; 84466

== ENCOUNTER 2020-07-30 09:40 | Outpatient (REF) | payer MEDICARE, OTHER, SELFPAY | END 2020-07-30 10:00 | LOC: LBO 09:40 | PROVIDERS: PCP Nurse Practitioner; Visit Provider Nurse Practitioner | DX: N39.0 Urinary tract infection, site not specified (principal) | CPT/HCPCS: 87086 ==

== ENCOUNTER 2020-08-06 03:24 | Outpatient (CLI) | payer MEDICARE, OTHER, SELFPAY ==
[2020-08-08 21:39] LABS: COVID-19 RT-PCR Result NEGATIVE (Negative)
== END 2020-08-06 03:44 ==
PROVIDERS: PCP Nurse Practitioner; Visit Provider Nurse Practitioner
DX: Z11.59 Encounter for screening for other viral diseases (principal)
CPT/HCPCS: U0003

== ENCOUNTER 2020-08-07 01:48 | Outpatient (CLI) | payer MEDICARE, OTHER, SELFPAY ==
[2020-08-07 09:44] LABS: Abs Immature Grans 0.08 10^3/uL (0.0-0.06); Absolute Basophil Count 0.04 10^3/uL (0.0-0.2); Absolute Eosinophil Count 0.11 10^3/uL (0.0-0.7); Absolute Lymphocyte Count 0.83 10^3/uL (1.2-3.4); Absolute Neutrophil Count 7.79 10^3/uL (1.2-6.7); Basophils % 0.4; Eosinophils % 1.2; HCT 34.9 % (40.0-50.0); Immature Grans % 0.8; Lymphocytes % 8.7; MCH 27.7 pg (27.0-33.0); MCHC 31.5 % (32.0-36.0); MCV 87.9 fL (80-95); MPV 9.3 fL (8.0-11.0); Monocytes % 7.3; Neutrophils % 81.6; Nucleated RBC 0 %; Platelet Count 318 10^3/uL (130-400); RBC 3.97 10^6/uL (4.36-5.78); WBC 9.55 10^3/uL (4.4-10.8)
== END 2020-08-07 02:08 ==
PROVIDERS: PCP Nurse Practitioner; Visit Provider Nurse Practitioner Adult Health
DX: K92.2 Gastrointestinal hemorrhage, unspecified (principal); R39.9 Unspecified symptoms and signs involving the genitourinary system
CPT/HCPCS: 36415; 87077; 85025; 87086; 87186

== ENCOUNTER 2020-12-02 14:45 | Outpatient (CLI) | payer MEDICARE, OTHER, SELFPAY ==
[2020-12-02 15:19] LABS: HCT 38.6 % (40.0-50.0); HGB 12.7 g/dL (13.5-17.5); MCH 29.7 pg (27.0-33.0); MCHC 32.9 % (32.0-36.0); MCV 90.2 fL (80-95); MPV 10.3 fL (8.0-11.0); Platelet Count 208 10^3/uL (130-400); RBC 4.28 10^6/uL (4.36-5.78); RDW 15.4 % (11.8-14.1); RDW-SD 50.5 fL; WBC 7.19 10^3/uL (4.4-10.8)
[2020-12-02 16:23] LABS: ALT 194 U/L (16-63); AST 114 U/L (15-37); Albumin 3.8 g/dL (3.4-5.0); Alkaline Phosphatase 128 U/L (46-116); Anion Gap 9.4 mmol/L (3-11); BUN 26 mg/dL (7-18); Bilirubin, Total 0.5 mg/dL (0.2-1.0); CO2 27.6 mmol/L (21.0-32.0); CREATININE 1.3 mg/dL (0.70-1.30); Calcium 9.2 mg/dL (8.5-10.1); Chloride 103 mmol/L (98-107); Estimated GFR 53.82 (mL/min/1.73m2); Glucose 105 mg/dL (74-106); Potassium 4.4 mmol/L (3.5-5.1); Sodium 140 mmol/L (136-145); Total Protein 6.9 g/dL (6.4-8.2)
== END 2020-12-02 14:46 | disposition home or self-care (01) ==
PROVIDERS: PCP Nurse Practitioner; Visit Provider Nurse Practitioner
DX: D64.9 Anemia, unspecified (principal); I20.0 Unstable angina; R06.02 Shortness of breath; Z95.0 Presence of cardiac pacemaker
CPT/HCPCS: 36415; 80053; 85027; 71046

== ENCOUNTER 2020-12-02 18:45 | Outpatient (CLI) | payer MEDICARE, OTHER, SELFPAY ==
--- NOTE | 2020-12-02 15:14 | DI.RAD_ITS ---
EXAM: XR CHEST 2V PA LATERAL CLINICAL HISTORY: SOB, sputum production, R06.02. TECHNIQUE: 2D digital imaging was performed. COMPARISON: CR XR CHEST 2V PA LATERAL from 05/08/2019 FINDINGS: There is cardiomegaly again noted and bipolar left subclavian pacemaker lead tips in are in RV. The mediastinum is not widened. Lungs are clear. No infiltrates nor pleural effusions. No evidence of pulmonary edema. Vertebroplasty cement again noted in T12. IMPRESSION: No acute pulmonary findings.Cardiomegaly and bipolar pacemaker again noted. No pulmonary edema. DATA REPOSITORY: RADIATION DOSE DELIVERED:
== END 2020-12-02 19:05 ==
PROVIDERS: PCP Nurse Practitioner; Visit Provider Nurse Practitioner
DX: R06.02 Shortness of breath (principal); Z95.0 Presence of cardiac pacemaker
CPT/HCPCS: 71046

== ENCOUNTER 2020-12-17 03:31 | Outpatient (CLI) | payer MEDICARE, OTHER, SELFPAY ==
[2020-12-17 08:05] LABS: HGB 12.8 g/dL (13.5-17.5); MCH 29.8 pg (27.0-33.0); MCV 93.2 fL (80-95); MPV 9.9 fL (8.0-11.0); Platelet Count 248 10^3/uL (130-400); RBC 4.29 10^6/uL (4.36-5.78); RDW 14.8 % (11.8-14.1); RDW-SD 50.6 fL; WBC 6.83 10^3/uL (4.4-10.8)
[2020-12-17 09:20] LABS: ALT 89 U/L (16-63); AST 45 U/L (15-37); Albumin 3.5 g/dL (3.4-5.0); Alkaline Phosphatase 123 U/L (46-116); BUN 27 mg/dL (7-18); Bilirubin, Total 0.6 mg/dL (0.2-1.0); CREATININE 1.5 mg/dL (0.70-1.30); Calcium 8.7 mg/dL (8.5-10.1); Chloride 105 mmol/L (98-107); Estimated GFR 45.62 (mL/min/1.73m2); Ferritin 22 ng/mL (26-388); GGT 61 U/L (15-85); Glucose 102 mg/dL (74-106); Potassium 4.4 mmol/L (3.5-5.1); Sodium 142 mmol/L (136-145); Total Protein 6.5 g/dL (6.4-8.2)
[2020-12-17 09:33] LABS: Bilirubin, Direct 0.2 mg/dL (0.0-0.2)
[2020-12-18 11:05] LABS: HBs Antibody, Qual Negative (See Note); HBs Antibody, Quant <3.1 mIU/mL (See Note); Hepatitis B Core Antibody Negative (Negative); Hepatitis B surface Ag Negative (Negative); Hepatitis C Ab w Rflx HCV PCR Negative (Negative)
== END 2020-12-17 03:32 | disposition home or self-care (01) ==
LOC: LBO 03:31
PROVIDERS: PCP Nurse Practitioner; Visit Provider Nurse Practitioner
DX: D64.9 Anemia, unspecified (principal); R79.89 Other specified abnormal findings of blood chemistry; Z11.59 Encounter for screening for other viral diseases
CPT/HCPCS: 36415; 80053; 80076; 85027; 86704; 86706; 86803; 87340; 82728; 82977

== ENCOUNTER 2020-12-30 14:26 | Outpatient (REF) | payer MEDICARE, OTHER, SELFPAY ==
[2020-12-30 18:14] LABS: HCT 37.6 % (40.0-50.0); HGB 11.9 g/dL (13.5-17.5); MCH 28.7 pg (27.0-33.0); MCHC 31.6 % (32.0-36.0); MCV 90.8 fL (80-95); MPV 10.3 fL (8.0-11.0); Platelet Count 221 10^3/uL (130-400); RBC 4.14 10^6/uL (4.36-5.78); RDW 14.1 % (11.8-14.1); RDW-SD 46.6 fL; WBC 7.22 10^3/uL (4.4-10.8)
[2020-12-30 18:26] LABS: Iron 38 ug/dL (65-175)
[2020-12-30 18:38] LABS: ALT 75 U/L (16-63); AST 55 U/L (15-37); Albumin 3.3 g/dL (3.4-5.0); Alkaline Phosphatase 106 U/L (46-116); Anion Gap 11.6 mmol/L (3-11); BUN 23 mg/dL (7-18); Bilirubin, Total 0.8 mg/dL (0.2-1.0); CO2 24.4 mmol/L (21.0-32.0); CREATININE 1.3 mg/dL (0.70-1.30); Calcium 8.3 mg/dL (8.5-10.1); Chloride 102 mmol/L (98-107); Estimated GFR 53.82 (mL/min/1.73m2); Ferritin 24 ng/mL (26-388); Glucose 111 mg/dL (74-106); Potassium 4.1 mmol/L (3.5-5.1); Sodium 138 mmol/L (136-145)
== END 2020-12-30 14:27 | disposition home or self-care (01) ==
LOC: LBN 14:26
PROVIDERS: PCP Nurse Practitioner; Visit Provider Nurse Practitioner
DX: D50.9 Iron deficiency anemia, unspecified (principal); D64.9 Anemia, unspecified; R79.89 Other specified abnormal findings of blood chemistry
CPT/HCPCS: 80053; 85027; 82728; 83540

== ENCOUNTER 2021-01-01 02:22 | Outpatient (CLI) | payer MEDICARE, OTHER, SELFPAY ==
--- NOTE | 2021-01-01 | DI.US_ITS ---
Exam(s) US BREAST LT COMPLETE US BREAST RT COMPLETE EXAM: US BREAST BILATERAL COMPLETE CLINICAL HISTORY: SLIGHTLY TENDER RT BREAST LUMP, LOWER OUTER AREA,N63.13. Left breast nodule seen on mammogram TECHNIQUE: Complete ultrasound of both breasts was performed including all 4 quadrants, the retroare olar regions, and both axillary regions.. COMPARISON: Mammogram performed today was reviewed. This male patient feels a finding behind the ri ght breast nipple. FINDINGS: Today's mammogram reveals gynecomastia, more so on the right side. Also reveals a possible small nod ule mid left breast which is equivocal on additional spot compression mammographic view. Left breast ultrasound is negative in all 4 quadrants. No findings correspond to the possible small nodule seen on the mammogram. The left axilla is negative. Right breast ultrasound reveals mild retroareolar gynecomastia. No other focal findings in all 4 qu adrants. Right axilla is negative for significant adenopathy IMPRESSION: Mild right gynecomastia. No other focal right breast findings No ultrasound findings in left breast to correspond to the possible subtle nodule seen on today's francesco mogram in the left breast. Appropriate follow-up is repeat bilateral mammogram in 6 months.. BI-RADS Category 3 - 6 month - Probably Benign Finding: Recommend follow-up mammography in 6 months Breast Density - Category B - Scattered areas of fibroglandular density Breast density Category C or D implies that the patient has dense breast tissue. Dense breast tissue can make it harder to find cancer on a mammogram. Dense breast tissue is also associated with an incr eased risk of breast cancer. This information about the result of the mammogram report was provided to the patient to raise their awareness. Use this report when you speak with the patient about their risks for breast cancer, which includes their family history. At that time, you may recommend additional screening tests (Ultrasoun d or MRI) as these tests may add significant information. A negative radiographic report should not delay biopsy if a dominant or clinically suspicious mass is present. Up to ten percent of cancers are not identified on mammography. A negative report may reinforce clinical impression. Adenosis and dense breasts may obscure an underlying neoplasm. False positive reports average 6 to 10%. Patient will receive a letter notifying them of these results.
--- NOTE | 2021-01-01 10:10 | DI.MAMMO_ITS ---
Exam(s) MAMMO DIAGNOSTIC BI EXAM: MAMMO DIAGNOSTIC BI CLINICAL HISTORY: DIAGNOSTIC, SLIGHTLY TENDER RT BREAST LUMP, N63. TECHNIQUE: Both CC and MLO mammographic images were obtained with 3D [employer] and util izing computer aided detection (CAD). Also performed distal spot view left breast. COMPARISON: First mammogram on this male patient. He feels a lump behind the right breast nipple. FINDINGS: There is mild gynecomastia in the retroareolar region of the right breast. Lesser amount in the retr oareolar region of the opposite-left breast. However, is subtle suggestion of a 4 millimeter nodular density in the left breast located 6 cm in from the nipple.. Additional spot compression view of th is area is equivocal. Left pacemaker noted. No architectural distortion or skin thickening-traction. We performed bilateral breast ultrasound following this mammogram today which revealed right-sided mi ld gynecomastia and no findings in left breast. IMPRESSION: Mild right gynecomastia. No left breast findings Appropriate follow-up is repeat bilateral mammogram in 6 months. The patient was informed of the findings and follow-up recommendations prior to leaving the [facility] today. BI-RADS Category 3 - 6 month - Probably Benign Finding: Recommend follow-up mammography in 6 months Breast Density - Category B - Scattered areas of fibroglandular density Breast density Category C or D implies that the patient has dense breast tissue. Dense breast tissue can make it harder to find cancer on a mammogram. Dense breast tissue is also associated with an incr eased risk of breast cancer. This information about the result of the mammogram report was provided to the patient to raise their awareness. Use this report when you speak with the patient about their risks for breast cancer, which includes their family history. At that time, you may recommend additional screening tests (Ultrasoun d or MRI) as these tests may add significant information. A negative radiographic report should not delay biopsy if a dominant or clinically suspicious mass is present. Up to ten percent of cancers are not identified on mammography. A negative report may reinforce clinical impression. Adenosis and dense breasts may obscure an underlying neoplasm. False positive reports average 6 to 10%. Patient will receive a letter notifying them of these results.
== END 2021-01-01 02:42 ==
PROVIDERS: PCP Nurse Practitioner; Visit Provider Nurse Practitioner
DX: N63.23 Unspecified lump in the left breast, lower outer quadrant (principal); N64.4 Mastodynia; N62 Hypertrophy of breast
CPT/HCPCS: 76642; 77062; 77066; G0279

== ENCOUNTER 2021-01-23 03:25 | Outpatient (CLI) | payer MEDICARE, OTHER, SELFPAY ==
[2021-01-23 11:51] LABS: HCT 41.5 % (40.0-50.0); HGB 13.4 g/dL (13.5-17.5); MCH 29.5 pg (27.0-33.0); MCHC 32.3 % (32.0-36.0); MCV 91.4 fL (80-95); MPV 9.9 fL (8.0-11.0); Platelet Count 196 10^3/uL (130-400); RBC 4.54 10^6/uL (4.36-5.78); RDW 16.1 % (11.8-14.1); RDW-SD 53.5 fL; WBC 8.83 10^3/uL (4.4-10.8)
[2021-01-23 13:05] LABS: Anion Gap 7.1 mmol/L (3-11); BUN 23 mg/dL (7-18); CO2 29.9 mmol/L (21.0-32.0); CREATININE 1.3 mg/dL (0.70-1.30); Calcium 8.8 mg/dL (8.5-10.1); Chloride 104 mmol/L (98-107); Estimated GFR 53.82 (mL/min/1.73m2); Glucose 96 mg/dL (74-106); Potassium 4.5 mmol/L (3.5-5.1); Sodium 141 mmol/L (136-145)
== END 2021-01-23 03:26 | disposition home or self-care (01) ==
LOC: LBO 03:25
PROVIDERS: PCP Nurse Practitioner; Visit Provider Nurse Practitioner
DX: R79.89 Other specified abnormal findings of blood chemistry (principal)
CPT/HCPCS: 36415; 80048; 85027

== ENCOUNTER 2021-01-23 14:53 | Outpatient (CLI) | payer MEDICARE, OTHER, SELFPAY ==
--- NOTE | 2021-01-23 13:15 | DI.RAD_ITS ---
Exam(s) XR FOOT RT COMPLETE EXAM: XR FOOT RT COMPLETE CLINICAL HISTORY: Lateral right foot pain for 3 weeks, weight bear m79.671. TECHNIQUE: 2D digital imaging was performed. COMPARISON: No exams were available for comparison FINDINGS: BONES: No acute fracture is present. No bony destructive lesion is seen. There is a bony spur arisin g from the 2nd metatarsal. JOINTS: No dislocation present. There is ankylosis of the PIP joints of the 2nd and 3rd toes. Moder ate degenerative changes are seen at the 1st MTP joint with joint space narrowing, subchondral sclero sis and periarticular spurring. SOFT TISSUE: Normal. IMPRESSION: No acute or healing fracture or dislocation. DATA REPOSITORY: RADIATION DOSE DELIVERED:
--- NOTE | 2021-01-23 13:15 | DI.RAD_ITS ---
Exam(s) XR CHEST 2V PA LATERAL EXAM: XR CHEST 2V PA LATERAL CLINICAL HISTORY: MEDINA, BLE edema, crackles 1/3 up B R06.00, I27.0, I51.9 TECHNIQUE: 2D digital imaging was performed. COMPARISON: CR XR CHEST 2V PA LATERAL from 12/02/2020 FINDINGS: MEDIASTINUM: Normal. HEART: Cardiomegaly. Cardiac pacing leads are stable in position. PULMONARY VASCULATURE: Normal. LUNGS: Clear. PLEURAL SPACE: No pleural effusion or pneumothorax. BONE:Within normal limits for the patient's age. OTHER FINDINGS:Normal. IMPRESSION: No acute pulmonary findings. DATA REPOSITORY: RADIATION DOSE DELIVERED:
== END 2021-01-23 15:13 ==
PROVIDERS: PCP Nurse Practitioner; Visit Provider Nurse Practitioner
DX: M79.671 Pain in right foot (principal); M19.071 Primary osteoarthritis, right ankle and foot; M77.41 Metatarsalgia, right foot
CPT/HCPCS: 36415; 80048; 85027; 71046; 73630

== ENCOUNTER 2021-02-06 08:00 | Outpatient (RCR) | payer SELFPAY ==
[2021-01-21 15:50] VITALS: BP 158/84; PULSE 76
[2021-01-23 07:52] VITALS: BP 125/89; PULSE 82; O2SAT 94
[2021-01-28 08:02] VITALS: BP 149/80; PULSE 85
[2021-01-30 08:00] VITALS: BP 141/91; PULSE 86
[2021-01-30 08:44] VITALS: BP 123/79
[2021-02-04 08:06] VITALS: BP 141/97; PULSE 90
[2021-02-06 08:10] VITALS: BP 172/86; PULSE 99
== END 2021-02-19 23:59 | disposition home or self-care (01) ==
LOC: CR 08:00
PROVIDERS: PCP Nurse Practitioner; Visit Provider Family Medicine
DX: Z51.89 Encounter for other specified aftercare (principal)

== ENCOUNTER 2021-03-31 14:06 | Outpatient (CLI) | payer MEDICARE, OTHER, SELFPAY ==
--- NOTE | 2021-03-31 14:37 | DI.RAD_ITS ---
Exam(s) XR CHEST 2V PA LATERAL EXAM: XR CHEST 2V PA LATERAL CLINICAL HISTORY: SOB,R06.02,LUNG CRACKLES,S/P CABG, HFREF, ?PLEURAL EFFUSION/PULMONARY EDEMA TECHNIQUE: 2D digital imaging was performed. COMPARISON: CR XR CHEST 2V PA LATERAL from 01/23/2021 FINDINGS: The heart is markedly enlarged. Pacemaker is again noted. Patient is now status post CABG. Sternal wires are present. There is minimal blunting at the left costophrenic angle. The lungs are otherwi se clear. There is no evidence of pulmonary edema. IMPRESSION: Minimal blunting at the left costophrenic angle could represent a tiny effusion. Stable cardiomegal y. DATA REPOSITORY: RADIATION DOSE DELIVERED:
== END 2021-03-31 14:26 ==
PROVIDERS: PCP Nurse Practitioner; Visit Provider Physician Assistant Surgical
DX: I51.7 Cardiomegaly; R09.89 Other specified symptoms and signs involving the circulatory and respiratory systems; I50.20 Unspecified systolic (congestive) heart failure; Z95.1 Presence of aortocoronary bypass graft
CPT/HCPCS: 71046

== ENCOUNTER 2021-04-06 15:02 | Emergency (ER) | payer MEDICARE, OTHER, SELFPAY ==
[2021-04-06] VITALS (9 sets, daily range): BP systolic 113–135; BP diastolic 69–91; PULSE 63–99; RESP 18–20; TEMP 36.6; O2SAT 94–97
--- NOTE | 2021-04-06 17:36 | W.ED.GENAD ---
Discharge Plan Disposition Patient Disposition: HOME Condition: Stable Discharge Details Clinical Impression: Leg swelling, CAD (coronary artery disease) Primary Care Provider: Ashley Haro ED Provider: Anu West Home Meds and New Rx's Prescriptions: Continued nitroglycerin 0.4 mg tablet, sublingual 0.4 mg SL Q5-15M PRN (Reason: chest pain) Qty: 50 RF: 6 fluoxetine 20 mg capsule 20 mg PO DAILY Qty: 90 RF: 3 aspirin [Adult Low Dose Aspirin] 81 mg tablet,delayed release (DR/EC) 81 mg PO DAILY Qty: 90 RF: 3 multivitamin [Daily Multi-Vitamin] 1 EACH tablet 1 ea PO DAILY RF: 0 mesalamine [Lialda] 1.2 GM tablet,delayed release (DR/EC) 2.4 g PO DAILY RF: 0 lidocaine 5 % adhesive patch,medicated 1 patch TP DAILY PRN (Reason: neck pain, back pain) Qty: 30 RF: 3 bupropion HCl [Wellbutrin XL] 300 mg tablet extended release 24 hr 300 mg PO QAM Qty: 90 RF: 3 clopidogrel 75 mg tablet 75 mg PO DAILY Qty: 90 RF: 3 pantoprazole 40 mg tablet,delayed release (DR/EC) 40 mg PO DAILY Qty: 90 RF: 3 atorvastatin 80 mg tablet 80 mg PO DAILY Qty: 90 RF: 3 spironolactone 25 mg tablet 12.5 mg PO DAILY Qty: 45 RF: 3 isosorbide mononitrate 60 mg tablet extended release 24 hr 120 mg PO DAILY RF: 0 betaxolol 10 mg tablet 20 mg PO DAILY RF: 0 furosemide 20 mg tablet 20 mg PO DAILY RF: 0 amiodarone 200 mg tablet 200 mg PO BID RF: 0 benzonatate 100 mg capsule 100 mg PO TID RF: 0 losartan 25 mg tablet 25 mg PO DAILY RF: 0 trazodone 50 mg tablet 50 mg PO PRN RF: 0 Discharge Instructions Additional Instructions: Please report for ultrasound tomorrow Return for chest pain, shortness of breath, or should you develop new or worsening complaints Recheck in 24 to 48 hours with primary care physician Warm compresses to the affected area Discharge Data Discharge Date/Time-TO BE ENTERED AT DEPARTURE: 04/06/21 17:51 Medical Decision Making Patient is a very complex medically, I do not see any evidence of significant abnormality, only tests are related to his ultrasound which unfortunately developed acute ability to hospital No real indication to start patient on anticoagulation, he is on Plavix and aspirin and his vitals are otherwise stable, he has no hypoxia, no chest pain and no shortness of breath He is able to have an outpatient ultrasound tomorrow He is not hypotensive in the emergency room, he was evaluated for 2 and half hours on the monitor and remained normotensive, he appears well and is doing quite low threshold to return should he have new or worsening complaints Patient discharged home in stable condition with his Left suspicion for infectious etiology of symptoms, will apply warm compresses and have outpatient ultrasound, recheck by primary care physician in the outpatient setting 24 to 48 hours recommended Medical Records Medical records reviewed: Yes I reviewed the patient's medical records. Lab Data Lab results reviewed: Yes I reviewed the patient's lab results. HPI General Mode of arrival: ambulatory. Date/Time Provider Initiated Documentation: 04/06/21 15:31. Limitations to Documentation: no limitations. Information obtained by: patient. HPI Narrative: Very pleasant 75-year-old gentleman with many comorbidities presents with mild swelling to his right lower extremity. He states he was also told to come in by home health for hypertension this morning. He is not sure what his blood pressure was at that time. He did take Depakote CABG with greater saphenous revascularization and this was performed approximately a week ago. He been doing quite well but he does state that he noted some swelling and induration just proximal to the incision site on his right lower extremity. He denies any chest pain or shortness of breath. He actually states he feels improved over the course of the past week. He is not sure what blood pressure was earlier. He states he otherwise feels well. He denies history of pulmonary embolism. He denies any significant weight gain or swelling to the left lower extremity. Denies any falls or injuries. Denies any fever or chills. Denies any pain to the affected site has been wearing compression stockings and ambulating reportedly. Related Data Home Medications Medication Instructions Recorded Confirmed multivitamin [Daily Multi-Vitamin] 1 ea PO DAILY 07/14/16 04/06/21 mesalamine [Lialda] 2.4 g PO DAILY tab-cap 01/08/17 04/06/21 aspirin 81 mg tablet,delayed 81 mg PO DAILY #90 tab 01/19/19 04/06/21 release lidocaine 5 % topical patch 1 patch TP DAILY PRN #30 each 10/25/19 04/06/21 bupropion HCl 300 mg 24 hr tablet, 300 mg PO QAM #90 tab-cap 02/12/20 04/06/21 extended release nitroglycerin 0.4 mg sublingual 0.4 mg SL Q5-15M PRN #50 tab 04/08/20 04/06/21 tablet clopidogrel 75 mg tablet 75 mg PO DAILY #90 tab 04/30/20 04/06/21 pantoprazole 40 mg tablet,delayed 40 mg PO DAILY #90 tab 04/30/20 04/06/21 release atorvastatin 80 mg tablet 80 mg PO DAILY #90 tab-cap 05/12/20 04/06/21 spironolactone 25 mg tablet 12.5 mg PO DAILY #45 tab-cap 06/20/20 04/06/21 fluoxetine 20 mg capsule 20 mg PO DAILY #90 cap 07/01/20 04/06/21 isosorbide mononitrate 60 mg 120 mg PO DAILY tab 12/12/20 04/06/21 tablet,extended release 24 hr furosemide 20 mg PO DAILY 01/28/21 04/06/21 betaxolol 10 mg tablet 20 mg PO DAILY tab 02/20/21 04/06/21 amiodarone 200 mg PO BID 04/06/21 04/06/21 benzonatate 100 mg PO TID 04/06/21 04/06/21 losartan 25 mg PO DAILY 04/06/21 04/06/21 trazodone 50 mg PO PRN 04/06/21 04/06/21 Previous Rx's Medication Instructions Recorded aspirin 81 mg tablet,delayed 81 mg PO DAILY #90 tab 01/19/19 release lidocaine 5 % topical patch 1 patch TP DAILY PRN #30 each 10/25/19 bupropion HCl 300 mg 24 hr tablet, 300 mg PO QAM #90 tab-cap 02/12/20 extended release nitroglycerin 0.4 mg sublingual 0.4 mg SL Q5-15M PRN #50 tab 04/08/20 tablet clopidogrel 75 mg tablet 75 mg PO DAILY #90 tab 04/30/20 pantoprazole 40 mg tablet,delayed 40 mg PO DAILY #90 tab 04/30/20 release atorvastatin 80 mg tablet 80 mg PO DAILY #90 tab-cap 05/12/20 spironolactone 25 mg tablet 12.5 mg PO DAILY #45 tab-cap 06/20/20 fluoxetine 20 mg capsule 20 mg PO DAILY #90 cap 07/01/20 Allergies Allergy/AdvReac Type Severity Reaction Status Date / Time morphine AdvReac Severe flashbacks Verified 04/06/21 15:31 from [place] metoclopramide AdvReac Intermediate Verified 04/06/21 15:31 sulfamethoxazole AdvReac Intermediate arthralgia, Verified 04/06/21 15:31 [From Bactrim] myalgia, sweats trimethoprim [From Bactrim] AdvReac Intermediate arthralgia, Verified 04/06/21 15:31 myalgia, sweats NSAIDS (Non-Steroidal AdvReac GI Bleeding Verified 04/06/21 15:31 Anti-Inflamma General Stated Complaint: [facility] MALL[place]IE: 3 Review of Systems All systems reviewed & are unremarkable except as noted in HPI and below [facility] Medical History (Updated 04/06/21 @ 17:39 by ANNIKA Chappell) Actinic keratosis Anemia Anxiety and depression Atrial fibrillation Breast mass, right Cataracts, bilateral Depression Depressive disorder (08/23/86) RECURRENT 12/1999; WORSE BENJAMIN; SON JOLEEN 10/02/97 Elevated LFTs Headache (10/02/11) History of basal cell carcinoma (BCC) HTN (hypertension) Hyperlipidemia Myocardial infarction Obesity Otitis externa in other diseases classified elsewhere, right ear Sciatica of right side associated with disorder of lumbosacral spine (12/16/15) MRI mod-severe spinal stenosis lumbar Sensorineural hearing loss of both ears Ulcerative colitis Urinary tract infection associated with indwelling urethral catheter (07/17/16) No Growth 06/22/16; Klebsiella and Pseudomonas 06/24/16 [facility] [place], ambreen catheter related; treated Zosyn, recurrent 07/17 Pseudomonas. Surgical History cardiac catheterization (06/22/16) [facility] [place] following arrest Colonoscopy (01/24/15) Dr. Stevens [facility] [place] 11/24/16 w/ Biopsy 06/10/18-[facility] [place] Endoscopy spec received 10/08/16. (CVM) A:Duodenum biopsy; -Chronic inflammation of the lamina propria. -preserved villous architeture. -No histologic evidence of celiac diesease. 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), active chronic inflammation,and focal erosion.11/24/16 w/ bx 06/10/18- [facility] [place] GI 03/16/19-[facility] [place] Video capsule endoscopy Implantation of automatic cardioverter/defibrillator, total system (AICD) (06/22/16) [facility] [place], [place], s/p V Fib arrest; second episode: stent X 4 &reduced EF 39% Implantation of automatic cardioverter/defibrillator, total system (AICD) (06/24/16) [facility] [place], [place], s/p V Fib arrest; second episode: stent X 4 &reduced EF 39% Pacemaker (07/04/16) paraesophageal diaphramtic hernia repair (02/20/18) [facility] [place] Presence of Watchman left atrial appendage closure device Prostate Biopsy with imaging guidance (03/12/14) [facility] [place] neg for cancer Replacement of total knee joint (~2007) R TKA Dr Francisco 05/[address] Francisco 03/2008 S/P angioplasty (10/25/18) balloon angioplasty 3 vessels Video Capsule Endoscopy (03/29/17) [facility] [place] Family History Mother Neoplasm leukemia Father No problems noted. Sister Alcohol abuse Sister , mva No problems noted. Brother , suicide No problems noted. Social History Smoking/Tobacco Use Status: Former Tobacco Use Pack-years: 8 Tobacco: How many years used: 3 Smoking risk assessment performed?: Yes Alcohol Intake: never Drug use: Never Substance use type: does not use Adopted: No Household members: spouse Current gender identity: male What is your relationship status?: Panel score (0-1 are the most socially isolated patients): 1 Duration: 45-60 minutes/day Frequency: 3-4 times per week Valerie/Denominational: Shinto Seatbelt use: always Helmet use: Yes Drive intox or ride w/intox day haul or farm charter bus driver: No Do you feel safe at home: Yes Do you feel safe in your relationship?: Yes Exam Const General: cooperative and no acute distress HENMT Head: normal to inspection Eyes Pupils: PERRL Chest Other: Well-healing sternotomy site without erythema, tenderness, or dehiscence Resp Effort & Inspection: normal respiratory effort Auscultation: clear to auscultation bilaterally Cardio Rate: regular rate Rhythm: regular rhythm GI Other: No abdominal tenderness Skin Other: Ideation to the incision site on patient's right lower extremity there is an area proximally 3 inches of mild induration, light pink discoloration, no overlying erythema, no crepitus, no lymphangitis along the medial aspect of patient lower thigh Neuro General: patient alert and patient oriented x3 Speech: speech normal Extrem Other: Distal pulses intact See above note, sensation intact distally Course Vital Signs Vital signs: Vital Signs Temperature 36.6 C 04/06/21 15:27 Pulse 65 04/06/21 15:27 Respiratory Rate 18 04/06/21 15:27 Blood Pressure 129/80 04/06/21 15:27 Pulse Oximetry 94 04/06/21 15:27 Temperature 36.6 C 04/06/21 16:30 Temperature Source Temporal Artery Scan 04/06/21 15:27 Pulse 99 H 04/06/21 16:30 Respiratory Rate 20 04/06/21 16:30 Respiratory Effort Non-Labored 04/06/21 16:58 Respiratory Depth Normal 04/06/21 16:58 Respiratory Pattern Normal 04/06/21 16:58 Blood Pressure 130/84 04/06/21 16:30 Blood Pressure Position Sitting 04/06/21 15:27 Pulse Oximetry 97 04/06/21 16:30 Oxygen Delivery Method Room Air 04/06/21 15:27 Oxygen Flow Rate 0 04/06/21 15:27
== END 2021-04-06 17:51 | disposition home or self-care (01) ==
PROVIDERS: Emergency Provider Physician Assistant; PCP Nurse Practitioner
DX: R22.41 Localized swelling, mass and lump, right lower limb (principal); I25.10 Atherosclerotic heart disease of native coronary artery without angina pectoris; Z87.891 Personal history of nicotine dependence; I11.0 Hypertensive heart disease with heart failure; Z98.890 Other specified postprocedural states; Z79.01 Long term (current) use of anticoagulants
CPT/HCPCS: 99281; 99282

== ENCOUNTER 2021-04-07 09:09 | Outpatient (CLI) | payer MEDICARE, OTHER, SELFPAY ==
--- NOTE | 2021-04-07 | DI.US_ITS ---
Exam(s) US LOWER EXTREMITY VENOUS RT EXAM: US LOWER EXTREMITY VENOUS RT CLINICAL HISTORY: RLE SWELLING TECHNIQUE: Grayscale, color, and doppler imaging of the deep venous system of the lower extremity w as performed. COMPARISON: None FINDINGS: There is a single focal area of intraluminal thrombus in the right greater saphenous vein just above the knee level, this involving a short segment of approximately 2 cm of this vein. Greater saphenous vein is not thrombosed higher up near the saphenofemoral junction. With respect to the deep system, there is no evidence of intraluminal thrombus and there is normal co mpression and augmentation demonstrated within the common femoral vein, femoral vein, and popliteal v ein. In the ipsilateral calf the interrogated veins also exhibit normal compression/ augmentation properti es. IMPRESSION: 1. No evidence of DVT. However, there is a focal area of thrombosis in the right greater saphenous vein just above the level of the knee, this over length of approximately 2 cm. This apparently corre sponds to this patient's maximum tenderness area. DATA REPOSITORY:
== END 2021-04-07 09:29 ==
PROVIDERS: PCP Nurse Practitioner; Visit Provider Physician Assistant
DX: M79.89 Other specified soft tissue disorders (principal)
CPT/HCPCS: 93971

== ENCOUNTER 2021-04-25 03:38 | Outpatient (CLI) | payer MEDICARE, OTHER, SELFPAY ==
[2021-04-27 11:42] LABS: COVID-19 RT-PCR UVMMC Result Negative (Negative)
== END 2021-04-25 03:39 | disposition home or self-care (01) ==
LOC: LBO 03:38
PROVIDERS: PCP Nurse Practitioner; Visit Provider Nurse Practitioner
DX: Z20.822 Contact with and (suspected) exposure to COVID-19 (principal)
CPT/HCPCS: U0003

== ENCOUNTER 2021-04-30 04:18 | Outpatient (CLI) | payer MEDICARE, OTHER, SELFPAY ==
[2021-04-30 13:43] LABS: Abs Immature Grans 0.02 10^3/uL (0.0-0.06); Absolute Basophil Count 0.07 10^3/uL (0.0-0.2); Absolute Eosinophil Count 0.11 10^3/uL (0.0-0.7); Absolute Lymphocyte Count 1.07 10^3/uL (1.2-3.4); Absolute Neutrophil Count 5.97 10^3/uL (1.2-6.7); Basophils % 0.9; Eosinophils % 1.4; HCT 33.6 % (40.0-50.0); HGB 10.3 g/dL (13.5-17.5); Immature Grans % 0.2; Lymphocytes % 13.1; MCH 27.2 pg (27.0-33.0); MCHC 30.7 % (32.0-36.0); MCV 88.9 fL (80-95); Monocytes % 11.1; Neutrophils % 73.3; Nucleated RBC 0 %; Platelet Count 401 10^3/uL (130-400); RBC 3.78 10^6/uL (4.36-5.78); RDW 15.9 % (11.8-14.1); WBC 8.14 10^3/uL (4.4-10.8)
== END 2021-04-30 04:19 | disposition home or self-care (01) ==
LOC: LBO 04:18
PROVIDERS: PCP Nurse Practitioner; Visit Provider Internal Medicine Gastroenterology
DX: K92.2 Gastrointestinal hemorrhage, unspecified (principal)
CPT/HCPCS: 36415; 85025

== ENCOUNTER 2021-05-21 09:00 | Outpatient (RCR) | payer MEDICARE, OTHER, SELFPAY ==
[2021-03-23 00:07] VITALS: BP 172/86; PULSE 99
== END 2021-05-22 23:59 | disposition home or self-care (01) ==
LOC: CR 09:00
PROVIDERS: PCP Nurse Practitioner; Visit Provider Family Medicine
DX: I25.10 Atherosclerotic heart disease of native coronary artery without angina pectoris (principal); Z95.1 Presence of aortocoronary bypass graft; Z51.89 Encounter for other specified aftercare
CPT/HCPCS: S9472

== ENCOUNTER 2021-05-22 04:11 | Outpatient (CLI) | payer MEDICARE, OTHER, SELFPAY ==
[2021-05-22] MEDS: Albuterol HFA 18 GM 200 PUFF INH IH (09:11)
[2021-05-22] MEDS: Inhaler, Assist Device 1 EACH MC (09:12)
--- NOTE | 2021-05-27 15:51 | W.PFT ---
Date of service: 05/22/21 Time of Service: 08:15 Pulmonary Function Test Result Requesting Provider Duchene Indications: Dyspnea on exertion Interpretation Spirometry: There is no airflow limitation. Is a restrictive pattern to the spirometry. There is no significant bronchodilator effect. Lung Volumes: There is severe restrictive lung disease. Diffusion Capacity: There is a reduced diffusion capacity. Airway Pressure: Airways resistance is normal. Impression Severe restrictive lung disease with a reduced diffusion capacity. Note: When compared to 06/21/2009 there is a significant reduction in FEV1, FVC, TLC and diffusion capacity. Clinical Correlation therefore is recommended.
== END 2021-05-22 04:12 | disposition home or self-care (01) ==
LOC: RT 04:12
PROVIDERS: PCP Nurse Practitioner; Visit Provider Student in an Organized Health Care Education/Training Program
DX: R06.09 Other forms of dyspnea (principal); J98.4 Other disorders of lung; R94.2 Abnormal results of pulmonary function studies
CPT/HCPCS: 94060; 94726; 94729

== ENCOUNTER 2021-05-26 09:00 | Outpatient (RCR) | payer MEDICARE, OTHER, SELFPAY | END 2021-06-22 23:59 | disposition home or self-care (01) | LOC: CR 09:00 | PROVIDERS: PCP Nurse Practitioner; Visit Provider Family Medicine | DX: Z51.89 Encounter for other specified aftercare (principal); I25.10 Atherosclerotic heart disease of native coronary artery without angina pectoris; Z95.1 Presence of aortocoronary bypass graft; I48.91 Unspecified atrial fibrillation; R00.0 Tachycardia, unspecified; I25.2 Old myocardial infarction | CPT/HCPCS: S9472 ==

== ENCOUNTER 2021-06-12 12:26 | Emergency (ER) | payer MEDICARE, OTHER, SELFPAY ==
[2021-06-12] VITALS (67 sets, daily range): BP systolic 105–147; BP diastolic 59–89; PULSE 62–112; RESP 16–37; TEMP 36.2–36.8; O2SAT 93–99
--- NOTE | 2021-06-12 12:30 | RT.EKG_ITS ---
APPROVED REPORT Exam: Resting ECG Reason for Exam: sob Patient Location: E HR:85 bpm ECG Measurements Heart Rate 85 AXIS KS [id number] P [id number] QRSd 113 QRS -9 QT 418 T 168 QTc 497 Conclusion Atrial flutter...A-rate 254 Incomplete right bundle branch block...QRSd >112, terminal axis(90,270) Inferior infarct, old...Q >35mS, II III aVF Nonspecific T abnormalities, lateral leads...T <-0.10mV, I aVL V5 V6
--- NOTE | 2021-06-12 12:30 | DI.RAD_ITS ---
Exam(s) XR PORTABLE CHEST AP EXAM: XR PORTABLE CHEST AP CLINICAL HISTORY: shortness of breath. TECHNIQUE: 2D digital imaging was performed. COMPARISON: CR XR CHEST 2V PA LATERAL from 03/31/2021 FINDINGS: Cardiomegaly again noted as well as sternotomy wires and evidence of previous CABG and there is a bip olar left subclavian pacemaker again noted with lead tips in are in RV, unchanged. The mediastinum is not widened. Lungs are clear. No pulmonary edema. No obvious pleural effusions. No pneumothorax. IMPRESSION: No acute pulmonary findings on this single AP portable view of the chest. Cardiac findings as above DATA REPOSITORY: RADIATION DOSE DELIVERED: All CT scans at this facility use at least one of these dose optimization techniques: automated exposure control; mA and/or kV adjustment per patient size (includes targeted e xams where dose is matched to clinical indication); or iterative reconstruction.
[2021-06-12 13:03] LABS: Abs Immature Grans 0.02 10^3/uL (0.0-0.06); Absolute Basophil Count 0.04 10^3/uL (0.0-0.2); Absolute Eosinophil Count 0.11 10^3/uL (0.0-0.7); Absolute Lymphocyte Count 0.95 10^3/uL (1.2-3.4); Absolute Monocyte Count 0.73 10^3/uL (0.1-0.8); Absolute Neutrophil Count 3.72 10^3/uL (1.2-6.7); Basophils % 0.7; HCT 33.3 % (40.0-50.0); Immature Grans % 0.4; Lymphocytes % 17.1; MCV 83.3 fL (80-95); MPV 10.3 fL (8.0-11.0); Monocytes % 13.1; Neutrophils % 66.7; Nucleated RBC 0 %; Platelet Count 260 10^3/uL (130-400); RDW 17.2 % (11.8-14.1); RDW-SD 52.3 fL; WBC 5.57 10^3/uL (4.4-10.8)
[2021-06-12 13:10] LABS: Source Nasal/Nares
[2021-06-12 13:21] LABS: ALT 28 U/L (16-63); AST 49 U/L (15-37); Albumin 3.3 g/dL (3.4-5.0); Alkaline Phosphatase 152 U/L (46-116); Anion Gap 8.8 mmol/L (3-11); BUN 23 mg/dL (7-18); Bilirubin, Total 0.9 mg/dL (0.2-1.0); CO2 26.2 mmol/L (21.0-32.0); CREATININE 1.3 mg/dL (0.70-1.30); Calcium 8.9 mg/dL (8.5-10.1); Chloride 100 mmol/L (98-107); Estimated GFR 53.67 (mL/min/1.73m2); Glucose 108 mg/dL (74-106); Magnesium 2.2 mg/dL (1.8-2.4); Potassium 4.2 mmol/L (3.5-5.1); Sodium 135 mmol/L (136-145); Total Protein 7.5 g/dL (6.4-8.2); Troponin I < 0.05 ng/mL (<0.06)
[2021-06-12 13:27] LABS: NT-proBNP 6761 pg/mL (<300)
[2021-06-12 14:06] LABS: COVID-19 PCR Negative (Negative)
[2021-06-12] MEDS: Normal Saline Flush 10 ML SYR IVP (14:40)
[2021-06-12] MEDS: Furosemide 20 MG/2 ML VIAL IVP ×2 (14:40→16:32)
--- NOTE | 2021-06-12 15:48 | W.ED.GENAD ---
Discharge Plan Disposition Patient Disposition: [facility] Condition: Serious Discharge Details Clinical Impression: CHF (congestive heart failure), Atrial fibrillation Primary Care Provider: Ashley Haro ED Provider: Niels Godoy Home Meds and New Rx's Prescriptions: No Action fluoxetine 20 mg capsule 20 mg PO DAILY Qty: 90 RF: 3 Probiotic 3 billion cell capsule 3,000 mmu cells PO DAILY RF: 0 d-mannose Powder PO BID RF: 0 Azo Cranberry 250 mg tablet,chewable 250 mg PO BID RF: 0 aspirin [Adult Low Dose Aspirin] 81 mg tablet,delayed release (DR/EC) 81 mg PO DAILY Qty: 90 RF: 3 atorvastatin 80 mg tablet 80 mg PO DAILY Qty: 90 RF: 3 furosemide 20 mg tablet 40 mg PO DAILY Qty: 180 RF: 3 trazodone 50 mg tablet 50 mg PO QHS PRN (Reason: insomnia) Qty: 90 RF: 3 multivitamin [Daily Multi-Vitamin] 1 EACH tablet 1 ea PO DAILY RF: 0 mesalamine [Lialda] 1.2 GM tablet,delayed release (DR/EC) 2.4 g PO DAILY RF: 0 lidocaine 5 % adhesive patch,medicated 1 patch TP DAILY PRN (Reason: neck pain, back pain) Qty: 30 RF: 3 clopidogrel 75 mg tablet 75 mg PO DAILY Qty: 90 RF: 3 pantoprazole 40 mg tablet,delayed release (DR/EC) 40 mg PO DAILY Qty: 90 RF: 3 betaxolol 10 mg tablet 20 mg PO DAILY RF: 0 acetaminophen 500 mg tablet 1,000 mg PO Q6H PRNRF: 0 spironolactone 25 mg tablet 12.5 mg PO DAILY Qty: 45 RF: 3 bupropion HCl [Wellbutrin XL] 300 mg tablet extended release 24 hr 300 mg PO QAM Qty: 90 RF: 3 nitroglycerin 0.4 mg tablet, sublingual 0.4 mg SL Q5-15M PRN (Reason: chest pain) Qty: 50 RF: 6 potassium chloride [Klor-Con M20] 20 mEq tablet,ER particles/crystals 10 meq PO .QOD RF: 0 cephalexin 500 mg capsule 500 mg PO QID RF: 0 losartan 25 mg tablet 25 mg PO DAILY RF: 0 Discharge Data Discharge Date/Time-TO BE ENTERED AT DEPARTURE: 06/12/21 20:06 Medical Decision Making <ANNIKA Chappell - Last Filed: 06/14/21 22:54> Patient with BNP increasing from 1700 3700, chest x-ray with cardiomegaly without edema, negative troponin, patient with tachypnea but not in obvious distress crackles at the lung 1+ edema peripherally ejection fraction on 10 was 30% which is concerning EKG without acute abnormality and patient is not currently experiencing any chest pain he received 40 mg of Lasix in the emergency room here I did discuss the case with Purvi Wooten, cardiology at [facility] and she recommends the patient be admitted for observation and IV Lasix, we are at capacity and do not have the ability to accommodate this patient underwent have agreed to ask this patient in transfer patient has been stable throughout this encounter he has full CODE STATUS patient has been accepted to [facility], pending bed placement at this time, Medical Records Medical records reviewed: Yes I reviewed the patient's medical records. Lab Data Lab results reviewed: Yes I reviewed the patient's lab results. <ANNIKA Cody - Last Filed: 06/12/21 19:57> I assumed care of this 76-year-old male patient from my colleague ANNIKA West, please see her initial HPI and examination. At time of signout patient has already been accepted to [facility] in transfer for CHF exacerbation, awaiting bed placement. Patient was evaluated by me in exam room 5, appears well, nontoxic and is very pleasant. He reports feeling better after his medical treatment here in the ER. He is hemodynamically stable, speaking in full sentences, and has no additional concerns or complaints. I was able to speak with his who also had no additional questions. They understand that we are waiting for placement at [facility] and awaiting their phone call when a bed is ready. Patient was observed in the ER under my care for approximately 4 hours, had no additional concerns or complaints, remained hemodynamically stable, and we received a call from [facility] stating that he could not be transferred. Transfer arranged and all appropriate paperwork completed. I did give the patient a single dose of p.o. Keflex, 500 mg, which she has been taking for UTI HPI <ANNIKA Chappell - Last Filed: 06/14/21 22:54> General Mode of arrival: ambulatory. Date/Time Provider Initiated Documentation: 06/12/21 12:27. Limitations to Documentation: no limitations. Information obtained by: patient. HPI Narrative: This 76-year-old male with history of hearing loss, shortness of breath, CABG x5 in February, peripheral edema, chronic dyspnea on exertion GI bleed paraesophageal hernia, coronary artery disease, hypertension, hyperlipidemia, metabolic syndrome presents with slightly worsening shortness of breath with 8 pound weight gain in the past 3 days. He states he said her five-vessel CABG that was performed in February at [facility]. Patient had an eventful course and required wound VAC placed and states he is healing from this overall. He presents now secondary care. Patient denies any worsening calf pain or swelling. Denies any fever or chills. Denies Covid exposure. Was sent in at the request of home health. Denies any associated chest discomfort. Denies nausea or vomiting.77 reports persistent orthopnea. Related Data Home Medications Medication Instructions Recorded Confirmed multivitamin [Daily Multi-Vitamin] 1 ea PO DAILY 07/14/16 06/12/21 mesalamine [Lialda] 2.4 g PO DAILY tab-cap 01/08/17 06/12/21 aspirin 81 mg tablet,delayed 81 mg PO DAILY #90 tab 01/19/19 06/12/21 release lidocaine 5 % topical patch 1 patch TP DAILY PRN #30 each 10/25/19 06/12/21 clopidogrel 75 mg tablet 75 mg PO DAILY #90 tab 04/30/20 06/12/21 pantoprazole 40 mg tablet,delayed 40 mg PO DAILY #90 tab 04/30/20 06/12/21 release fluoxetine 20 mg capsule 20 mg PO DAILY #90 cap 07/01/20 06/12/21 betaxolol 10 mg tablet 20 mg PO DAILY tab 02/20/21 06/12/21 losartan 25 mg PO DAILY 04/06/21 06/12/21 acetaminophen 500 mg tablet 1,000 mg PO Q6H PRN tab 04/10/21 06/12/21 spironolactone 25 mg tablet 12.5 mg PO DAILY #45 tab-cap 04/14/21 06/12/21 cranberry fruit concentrate 250 mg 250 mg PO BID tab 04/21/21 06/12/21 chewable tablet d-mannose pwd PO BID g 04/21/21 05/16/21 lactobacillus combination no.4 3 3,000 mmu cells PO DAILY 04/21/21 06/12/21 billion cell capsule atorvastatin 80 mg tablet 80 mg PO DAILY #90 tab-cap 05/06/21 06/12/21 furosemide 20 mg tablet 40 mg PO DAILY #180 tab 05/06/21 06/12/21 bupropion HCl 300 mg 24 hr tablet, 300 mg PO QAM #90 tab-cap 05/20/21 06/12/21 extended release cephalexin 500 mg capsule 500 mg PO QID 06/09/21 06/12/21 nitroglycerin 0.4 mg sublingual 0.4 mg SL Q5-15M PRN #50 tab 06/09/21 06/12/21 tablet potassium chloride 20 mEq 10 meq PO .QOD tab 06/09/21 06/12/21 tablet,extended release(part/cryst) trazodone 50 mg tablet 50 mg PO QHS PRN #90 tab 06/10/21 06/12/21 Previous Rx's Medication Instructions Recorded aspirin 81 mg tablet,delayed 81 mg PO DAILY #90 tab 01/19/19 release lidocaine 5 % topical patch 1 patch TP DAILY PRN #30 each 10/25/19 clopidogrel 75 mg tablet 75 mg PO DAILY #90 tab 04/30/20 pantoprazole 40 mg tablet,delayed 40 mg PO DAILY #90 tab 04/30/20 release fluoxetine 20 mg capsule 20 mg PO DAILY #90 cap 07/01/20 spironolactone 25 mg tablet 12.5 mg PO DAILY #45 tab-cap 04/14/21 atorvastatin 80 mg tablet 80 mg PO DAILY #90 tab-cap 05/06/21 furosemide 20 mg tablet 40 mg PO DAILY #180 tab 05/06/21 bupropion HCl 300 mg 24 hr tablet, 300 mg PO QAM #90 tab-cap 05/20/21 extended release nitroglycerin 0.4 mg sublingual 0.4 mg SL Q5-15M PRN #50 tab 06/09/21 tablet trazodone 50 mg tablet 50 mg PO QHS PRN #90 tab 06/10/21 Allergies Allergy/AdvReac Type Severity Reaction Status Date / Time morphine AdvReac Severe flashbacks Verified 05/06/21 11:34 from [place] metoclopramide AdvReac Intermediate Verified 05/06/21 11:34 sulfamethoxazole AdvReac Intermediate arthralgia, Verified 05/06/21 11:34 [From Bactrim] myalgia, sweats trimethoprim [From Bactrim] AdvReac Intermediate arthralgia, Verified 05/06/21 11:34 myalgia, sweats adhesive tape AdvReac Skin Verified 05/06/21 11:34 irritation NSAIDS (Non-Steroidal AdvReac GI Bleeding Verified 05/06/21 11:34 Anti-Inflamma General Stated Complaint: RespSymp MALLORIE: 2 Review of Systems <ANNIKA Chappell - Last Filed: 06/14/21 22:54> All systems reviewed & are unremarkable except as noted in HPI and below PFSH <ANNIKA Chappell - Last Filed: 06/14/21 22:54> Medical History Actinic keratosis Anemia Anxiety and depression Atrial fibrillation Breast mass, right Cataracts, bilateral Depression Depressive disorder (08/23/86) RECURRENT 12/1999; WORSE BENJAMIN; SON JOLEEN 10/02/97 Elevated LFTs Headache (10/02/11) History of basal cell carcinoma (BCC) HTN (hypertension) Hyperlipidemia Myocardial infarction Obesity Otitis externa in other diseases classified elsewhere, right ear S/P CABG x 5 Sciatica of right side associated with disorder of lumbosacral spine (12/16/15) MRI mod-severe spinal stenosis lumbar Sensorineural hearing loss of both ears Ulcerative colitis Urinary tract infection associated with indwelling urethral catheter (07/17/16) No Growth 06/22/16; Klebsiella and Pseudomonas 06/24/16 [facility] related; treated Zosyn, recurrent 07/17 Pseudomonas. Surgical History cardiac catheterization (06/22/16) [facility] [place] arrest Colonoscopy (01/24/15) Dr. Stevens [facility] [place]/24/16 w/ Biopsy 06/10/18-[facility] Endoscopy spec received 10/08/16. (CVM) A:Duodenum biopsy; -Chronic inflammation of the lamina propria. -preserved villous architeture. -No histologic evidence of celiac diesease. 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), active chronic inflammation,and focal erosion.11/24/16 w/ bx 06/10/18- [facility] [place] 03/16/19[place] Video capsule endoscopy Implantation of automatic cardioverter/defibrillator, total system (AICD) (06/22/16) [facility], s/p V Fib arrest; second episode: stent X 4 &reduced EF 39% Implantation of automatic cardioverter/defibrillator, total system (AICD) (06/24/16) [facility], s/p V Fib arrest; second episode: stent X 4 &reduced EF 39% Pacemaker (07/04/16) paraesophageal diaphramtic hernia repair (02/20/18) [facility] Presence of Watchman left atrial appendage closure device Prostate Biopsy with imaging guidance (03/12/14) [facility] neg for cancer Replacement of total knee joint (~2007) R TKA Dr Francisco 05/[address] Francisco 03/2008 S/P angioplasty (10/25/18) balloon angioplasty 3 vessels Video Capsule Endoscopy (03/29/17) [facility] Family History Mother Neoplasm leukemia Father No problems noted. Sister Alcohol abuse Sister , mva No problems noted. Brother , suicide No problems noted. 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: No Do you feel safe at home: Yes Do you feel safe in your relationship?: Yes Exam <ANNIKA Chappell - Last Filed: 06/14/21 22:54> Const General: cooperative, no acute distress and frail appearing [facility] Head: normal to inspection Mouth: oral mucosae normal Eyes Pupils: PERRL Neck Neck: JVD Resp Auscultation: crackles Cardio Rate: regular rate Rhythm: abnormal rhythm GI Inspection: normal to inspection Skin General skin exam: no rashes or lesions noted Neuro General: patient alert and patient oriented x3 Extrem Other: 1+edema bilateral lower extremities Course <ANNIKA Chappell - Last Filed: 06/14/21 22:54> Vital Signs Vital signs: Vital Signs Temperature 36.8 C 06/12/21 12:43 Pulse 84 06/12/21 12:43 Respiratory Rate 22 06/12/21 12:43 Blood Pressure 147/66 H 06/12/21 12:43 Pulse Oximetry 98 06/12/21 12:43 Temperature 36.8 C 06/12/21 12:43 Temperature Source Temporal Artery Scan 06/12/21 12:43 Pulse 63 06/12/21 15:16 Pulse 76 06/12/21 15:20 Respiratory Rate 24 06/12/21 15:20 Respiratory Effort Incrsd Work of Breathing 06/12/21 13:15 Blood Pressure 130/74 06/12/21 15:16 Blood Pressure Mean 87 06/12/21 15:16 Blood Pressure Position Sitting 06/12/21 12:43 Pulse Oximetry 97 06/12/21 15:20 Oxygen Delivery Method Room Air 06/12/21 12:43 Oxygen Flow Rate 0 06/12/21 12:43 Lab/Test Results Lab/Test Results: Laboratory Tests Range/Units 06/12/21 06/12/21 06/12/21 12:53 12:53 12:53 WBC (4.4-10.8) 10^3/uL 5.57 RBC (4.36-5.78) 10^6/uL 4.00 L Hgb (13.5-17.5) g/dL 10.0 L Hct (40.0-50.0) % 33.3 L MCV (80-95) fL 83.3 MCH (27.0-33.0) pg 25.0 L MCHC (32.0-36.0) % 30.0 L RDW (11.8-14.1) % 17.2 H Plt Count (130-400) 10^3/uL 260 MPV (8.0-11.0) fL 10.3 Immature Gran % 0.4 Neutrophils % 66.7 Lymphocytes % 17.1 Monocytes % 13.1 Eosinophils % 2.0 Basophils % 0.7 Nucleated RBC % % 0 Absolute Neutrophils (1.2-6.7) 10^3/uL 3.72 Absolute Lymphocytes (1.2-3.4) 10^3/uL 0.95 L Absolute Monocytes (0.1-0.8) 10^3/uL 0.73 Absolute Eosinophils (0.0-0.7) 10^3/uL 0.11 Absolute Basophils (0.0-0.2) 10^3/uL 0.04 Sodium (136-145) mmol/L 135 L Potassium (3.5-5.1) mmol/L 4.2 Chloride (98-107) mmol/L 100 Carbon Dioxide (21.0-32.0) mmol/L 26.2 Anion Gap (3-11) mmol/L 8.8 BUN (7-18) mg/dL 23 H Creatinine (0.70-1.30) mg/dL 1.3 Estimated GFR/1.73 m2 (mL/min/1.73m2) 53.67 Glucose (74-106) mg/dL 108 H Calcium (8.5-10.1) mg/dL 8.9 Magnesium (1.8-2.4) mg/dL 2.2 Total Bilirubin (0.2-1.0) mg/dL 0.9 AST (15-37) U/L 49 H ALT (16-63) U/L 28 Alkaline Phosphatase (46-116) U/L 152 H Troponin I (<0.06) ng/mL < 0.05 NT-Pro-B Natriuret Pep (<300) pg/mL 6761 H Total Protein (6.4-8.2) g/dL 7.5 Albumin (3.4-5.0) g/dL 3.3 L COVID-19 Source SARS-CoV-2 (PCR) (Negative) Range/Units 06/12/21 13:00 WBC (4.4-10.8) 10^3/uL RBC (4.36-5.78) 10^6/uL Hgb (13.5-17.5) g/dL Hct (40.0-50.0) % MCV (80-95) fL MCH (27.0-33.0) pg MCHC (32.0-36.0) % RDW (11.8-14.1) % Plt Count (130-400) 10^3/uL MPV (8.0-11.0) fL Immature Gran % Neutrophils % Lymphocytes % Monocytes % Eosinophils % Basophils % Nucleated RBC % % Absolute Neutrophils (1.2-6.7) 10^3/uL Absolute Lymphocytes (1.2-3.4) 10^3/uL Absolute Monocytes (0.1-0.8) 10^3/uL Absolute Eosinophils (0.0-0.7) 10^3/uL Absolute Basophils (0.0-0.2) 10^3/uL Sodium (136-145) mmol/L Potassium (3.5-5.1) mmol/L Chloride (98-107) mmol/L Carbon Dioxide (21.0-32.0) mmol/L Anion Gap (3-11) mmol/L BUN (7-18) mg/dL Creatinine (0.70-1.30) mg/dL Estimated GFR/1.73 m2 (mL/min/1.73m2) Glucose (74-106) mg/dL Calcium (8.5-10.1) mg/dL Magnesium (1.8-2.4) mg/dL Total Bilirubin (0.2-1.0) mg/dL AST (15-37) U/L ALT (16-63) U/L Alkaline Phosphatase (46-116) U/L Troponin I (<0.06) ng/mL NT-Pro-B Natriuret Pep (<300) pg/mL Total Protein (6.4-8.2) g/dL Albumin (3.4-5.0) g/dL COVID-19 Source Nasal/Nares SARS-CoV-2 (PCR) (Negative) Negative Sign Out <ANNIKA Chappell - Last Filed: 06/14/21 22:54> Sign Out Data: Sign Out Comment: pending [facility] bed assignment and transfer Last updated by Anu West PA at 06/12/21 16:25
[2021-06-12 16:43] LABS: Troponin I < 0.05 ng/mL (<0.06)
[2021-06-12] MEDS: Cephalexin 500 MG CAP PO (19:41)
== END 2021-06-12 20:06 | disposition short-term general hospital (02) ==
PROVIDERS: Physician Assistant; Emergency Provider Physician Assistant; PCP Nurse Practitioner
DX: I11.0 Hypertensive heart disease with heart failure (principal); I50.9 Heart failure, unspecified; I48.91 Unspecified atrial fibrillation
CPT/HCPCS: 36415; 80053; 87635; 93005; 96374; 96376; 99285; 71045; 83735; 83880; 84484; 85025; 93010; J1941

== ENCOUNTER 2021-06-23 03:31 | Outpatient (RCR) | payer MEDICARE, OTHER, SELFPAY | END 2021-07-22 23:59 | disposition home or self-care (01) | LOC: CR 03:31 | PROVIDERS: PCP Nurse Practitioner; Visit Provider Family Medicine | DX: Z51.89 Encounter for other specified aftercare (principal); I25.10 Atherosclerotic heart disease of native coronary artery without angina pectoris; Z95.1 Presence of aortocoronary bypass graft; I25.2 Old myocardial infarction | CPT/HCPCS: S9472 ==

== ENCOUNTER 2021-06-24 01:45 | Outpatient (CLI) | payer MEDICARE, OTHER, SELFPAY ==
--- NOTE | 2021-06-24 07:45 | DI.CT_ITS ---
Exam(s) CT CHEST HIGH RESOLUTION EXAM: CT CHEST HIGH RESOLUTION CLINICAL HISTORY: crackles, dSYPNEA ON EXERTION,? ILD, R06.00 TECHNIQUE: COMPARISON: CR XR PORTABLE CHEST AP from 06/12/2021 CR XR PORTABLE CHEST AP from 06/12/2021 FINDINGS: Noncontrast CT examination of the chest was performed with helical scanning as well as inspiratory an d expiratory phase high-resolution scanning. Images obtained through the upper abdomen show unremarkable appearance of visualized portions of live r, spleen, pancreas, adrenals, kidneys, with incidental note made of a right lower pole renal cyst. Note is made of coronary artery calcification. There is a transvenous cardiac pacemaker in position. There is moderate cardiomegaly. There are multiple sternal sutures and mediastinal vascular clips. And prior surgery noted. There appears to be small right pleural effusion. No left pleural effusion. No pneumothorax. Inspiratory and expiratory high-resolution scanning shows no specific parenchymal abnormality. [place] is somewhat technically limited due to breathing motion artifact. The tracheobronchial tree appears intact. No gross mediastinal or hilar adenopathy by noncontrast cr iteria. IMPRESSION: Examination is somewhat technically limited due to patient breathing motion artifact. No significant intrapulmonary findings. Cardiomegaly, coronary artery calcification, RADIATION DOSE DELIVERED: 724.12mGy.cm Total DLP 3.01mGy CTDIvol RADIATION OPTIMIZATION: All CT scans at this facility use at least one of these dose optimization te chniques: automated exposure control; mA and/or kV adjustment per patient size (includes targeted exa ms where dose is matched to clinical indication); or iterative reconstruction.
== END 2021-06-24 02:05 ==
PROVIDERS: PCP Nurse Practitioner; Visit Provider Student in an Organized Health Care Education/Training Program
DX: R06.00 Dyspnea, unspecified (principal); I51.7 Cardiomegaly; I25.10 Atherosclerotic heart disease of native coronary artery without angina pectoris
CPT/HCPCS: 71250

== ENCOUNTER 2021-06-30 15:17 | Outpatient (CLI) | payer MEDICARE, OTHER, SELFPAY ==
--- NOTE | 2021-07-04 06:52 | W.PFT ---
Date of service: 06/30/21 Time of Service: 16:17 Pulmonary Function Test Result Requesting Provider Duchene Indications: Restrictive lung disease Interpretation Spirometry: The MIP is normal, but the MEP is reduced (26%) Impression Normal MIP, reduced MEP Clinical Correlation therefore is recommended.
== END 2021-06-30 15:18 | disposition home or self-care (01) ==
LOC: RT 15:17
PROVIDERS: PCP Nurse Practitioner; Visit Provider Student in an Organized Health Care Education/Training Program
DX: J98.4 Other disorders of lung (principal); R94.2 Abnormal results of pulmonary function studies
CPT/HCPCS: 94200

== ENCOUNTER → 2021-07-11 08:51 | Outpatient (BNVA) | payer MEDICARE, OTHER, SELFPAY | PROVIDERS: PCP Nurse Practitioner; Referring Provider Nurse Practitioner; Visit Provider Student in an Organized Health Care Education/Training Program | DX: M70.61 Trochanteric bursitis, right hip (principal) | CPT/HCPCS: 20610; 96365; 96366; 99213; J1040; J1756 ==

== ENCOUNTER 2021-07-21 09:00 | Outpatient (RCR) | payer MEDICARE, OTHER, SELFPAY ==
[2021-07-04] MEDS: Normal Saline Flush 10 ML SYR IVP (08:30)
[2021-07-04] MEDS: IRON SUCROSE COMPLEX 300 MG in Normal Saline 250 ML 176.667 MG IVPB (08:30)
[2021-07-11] MEDS: Normal Saline Flush 10 ML SYR IVP (10:10)
[2021-07-11] MEDS: IRON SUCROSE COMPLEX 300 MG in Normal Saline 250 ML 167 MG IVPB (10:32)
[2021-07-18] MEDS: IRON SUCROSE COMPLEX 300 MG in Normal Saline 250 ML 176.667 MG IVPB (08:37)
[2021-07-18] MEDS: Normal Saline Flush 10 ML SYR IVP (08:37)
== END 2021-07-22 23:59 | disposition home or self-care (01) ==
LOC: INF 09:00
PROVIDERS: PCP Nurse Practitioner; Visit Provider Family Medicine
DX: D50.9 Iron deficiency anemia, unspecified (principal)
CPT/HCPCS: 96365; 96366; J1040; J1756

== ENCOUNTER 2021-07-29 00:26 | Outpatient (CLI) | payer MEDICARE, OTHER, SELFPAY ==
--- NOTE | 2021-07-29 14:25 | DI.MAMMO_ITS ---
Exam(s) MAMMO DIAGNOSTIC BI EXAM: MAMMO DIAGNOSTIC BI CLINICAL HISTORY: 6 mos f/u,R92.8 TECHNIQUE: Bilateral full field digital CC and MLO mammographic images were obtained with 3D tomosyn thesis and utilizing computer aided detection (CAD). COMPARISON: Available for comparison. FINDINGS: Masses/Architectural Distortion: None seen. Microcalcifications: No suspicious pleomorphic-type are seen. Skin Thickening/Nipple Retraction: None. IMPRESSION: 1. No significant interval change with no specific features of malignancy noted. 2. Unless there is more urgent need, screening mammography is recommended, as per [employer] guidelines. BI-RADS Category 1 - Negative Breast Density - Category B - Scattered areas of fibroglandular density Breast density category C or D implies that the patient has dense breast tissue. Dense breast tissue is very common and is not abnormal but dense breast tissue can make it harder to find cancer on a ma mmogram. Also, dense breast tissue may increase their breast cancer risk. This information about the result of the mammogram report was provided to the patient to raise their awareness. Use this report when you speak with the patient about their risks for breast cancer, which includes their family hist ory. At that time, you may recommend for more screening tests (Ultrasound or MRI) as they might be us eful based on their risk. A negative radiographic report should not delay biopsy if a dominant or clinically suspicious mass is present. Up to ten percent of cancers are not identified on mammography. A negative report may reinforce clinical impression. Adenosis and dense breasts may obscure an underlying neoplasm. False positive reports average 6 to 10%. Patient will receive a letter notifying them of these results.
== END 2021-07-29 00:46 ==
PROVIDERS: PCP Nurse Practitioner; Visit Provider Nurse Practitioner
DX: R92.8 Other abnormal and inconclusive findings on diagnostic imaging of breast (principal)
CPT/HCPCS: 77062; 77066; G0279

== ENCOUNTER 2021-08-20 09:00 | Outpatient (RCR) | payer MEDICARE, OTHER, SELFPAY | END 2021-08-22 23:59 | disposition home or self-care (01) | LOC: CR 09:00 | PROVIDERS: PCP Nurse Practitioner; Visit Provider Family Medicine | DX: Z51.89 Encounter for other specified aftercare (principal); I25.10 Atherosclerotic heart disease of native coronary artery without angina pectoris; Z95.1 Presence of aortocoronary bypass graft | CPT/HCPCS: S9472 ==

== ENCOUNTER 2021-08-29 03:48 | Outpatient (CLI) | payer MEDICARE, SELFPAY ==
[2021-08-29 14:14] LABS: Abs Immature Grans 0.01 10^3/uL (0.0-0.06); Absolute Basophil Count 0.03 10^3/uL (0.0-0.2); Absolute Eosinophil Count 0.03 10^3/uL (0.0-0.7); Absolute Lymphocyte Count 0.94 10^3/uL (1.2-3.4); Absolute Monocyte Count 0.68 10^3/uL (0.1-0.8); Absolute Neutrophil Count 4.43 10^3/uL (1.2-6.7); Basophils % 0.5; Eosinophils % 0.5; HCT 38.7 % (40.0-50.0); HGB 11.9 g/dL (13.5-17.5); Immature Grans % 0.2; Lymphocytes % 15.4; MCH 26.9 pg (27.0-33.0); MCHC 30.7 % (32.0-36.0); MCV 87.4 fL (80-95); MPV 9.4 fL (8.0-11.0); Monocytes % 11.1; Neutrophils % 72.3; Nucleated RBC 0 %; RBC 4.43 10^6/uL (4.36-5.78); RDW 23.9 % (11.8-14.1); RDW-SD 76.2 fL; WBC 6.12 10^3/uL (4.4-10.8)
[2021-08-29 14:32] LABS: Anisocytosis 3+; Diff Comment Diff Reviewed; Platelet Count 135 10^3/uL (130-400)
[2021-08-29 14:33] LABS: Poikilocytes 2+
[2021-08-29 15:26] LABS: ALT 50 U/L (16-63); AST 46 U/L (15-37); Albumin 3.6 g/dL (3.4-5.0); Alkaline Phosphatase 141 U/L (46-116); Anion Gap 7.7 mmol/L (3-11); BUN 38 mg/dL (7-18); Bilirubin, Total 0.8 mg/dL (0.2-1.0); CO2 29.3 mmol/L (21.0-32.0); CREATININE 1.5 mg/dL (0.70-1.30); Calcium 8.8 mg/dL (8.5-10.1); Chloride 98 mmol/L (98-107); Glucose 93 mg/dL (74-106); Potassium 4.4 mmol/L (3.5-5.1); Sodium 135 mmol/L (136-145); Total Protein 6.9 g/dL (6.4-8.2)
== END 2021-08-29 03:49 | disposition home or self-care (01) ==
LOC: LBO 03:48
PROVIDERS: PCP Nurse Practitioner; Visit Provider Nurse Practitioner
DX: D64.9 Anemia, unspecified (principal); I27.20 Pulmonary hypertension, unspecified; J45.909 Unspecified asthma, uncomplicated
CPT/HCPCS: 36415; 80053; 85025

== ENCOUNTER 2021-09-17 09:00 | Outpatient (RCR) | payer MEDICARE, OTHER, SELFPAY | END 2021-09-18 16:43 | LOC: CR 09:00 | PROVIDERS: PCP Nurse Practitioner; Visit Provider Family Medicine | DX: Z51.89 Encounter for other specified aftercare (principal); I25.10 Atherosclerotic heart disease of native coronary artery without angina pectoris; Z95.1 Presence of aortocoronary bypass graft; I25.5 Ischemic cardiomyopathy; I25.2 Old myocardial infarction | CPT/HCPCS: S9472 ==

== ENCOUNTER 2021-09-22 09:00 | Outpatient (RCR) | payer MEDICARE, SELFPAY | END 2021-09-22 23:59 | disposition home or self-care (01) | LOC: CR 09:00 | PROVIDERS: PCP Nurse Practitioner; Visit Provider Family Medicine | DX: Z51.89 Encounter for other specified aftercare (principal); I25.10 Atherosclerotic heart disease of native coronary artery without angina pectoris; Z95.1 Presence of aortocoronary bypass graft; I25.2 Old myocardial infarction | CPT/HCPCS: S9472 ==

== ENCOUNTER 2021-09-25 10:02 | Outpatient (CLI) | payer MEDICARE, SELFPAY ==
--- NOTE | 2021-09-25 09:00 | DI.RAD_ITS ---
Exam(s) XR LUMBAR SPINE AP, LAT EXAM: XR LUMBAR SPINE AP, LAT CLINICAL HISTORY: recalcitrant right hip pain TECHNIQUE: COMPARISON: CT CT CHEST HIGH RESOLUTION from 06/24/2021 FINDINGS: Three views were obtained. Note is made of an old L1 vertebral compression fracture with apparent ve rtebroplasty. There is no evidence of acute fracture. There are prominent hypertrophic endplate and facet joint changes and multilevel loss of disc height consistent with disc degeneration. IMPRESSION: Severe DJD, no evidence of acute process. RADIATION DOSE DELIVERED: Total DLP
--- NOTE | 2021-09-25 09:35 | DI.RAD_ITS ---
Exam(s) XR HIP RT COMPLETE AP PELVIS EXAM: XR HIP RT COMPLETE AP PELVIS CLINICAL HISTORY: recalcitrant right hip pain TECHNIQUE: COMPARISON: CR XR HIP LT COMPLETE AP PELVIS from 10/09/2019 FINDINGS: Two views were obtained. There are moderate degenerative changes of both hips and SI joints. There is no evidence of acute fracture or dislocation. IMPRESSION: RADIATION DOSE DELIVERED: Total DLP
== END 2021-09-25 10:03 | disposition home or self-care (01) ==
LOC: DIORS 10:03
PROVIDERS: PCP Nurse Practitioner; Referring Provider Nurse Practitioner; Visit Provider Student in an Organized Health Care Education/Training Program
DX: M25.551 Pain in right hip (principal); M16.0 Bilateral primary osteoarthritis of hip; M53.3 Sacrococcygeal disorders, not elsewhere classified; M51.36 Other intervertebral disc degeneration, lumbar region; M47.816 Spondylosis without myelopathy or radiculopathy, lumbar region; M16.11 Unilateral primary osteoarthritis, right hip; M70.61 Trochanteric bursitis, right hip
CPT/HCPCS: 20610; 99213; 72100; 73502; J1040

== ENCOUNTER 2021-10-08 02:14 | Outpatient (RCR) | payer MEDICARE, SELFPAY ==
[2021-10-08] MEDS: IRON SUCROSE COMPLEX 300 MG in Normal Saline 250 ML 176.667 MG IVPB (10:41)
[2021-10-08] MEDS: Normal Saline Flush 10 ML SYR IVP (10:41)
== END 2021-10-20 23:59 | disposition home or self-care (01) ==
LOC: INF 02:14
PROVIDERS: PCP Nurse Practitioner; Visit Provider Nurse Practitioner Acute Care
DX: D50.9 Iron deficiency anemia, unspecified (principal)
CPT/HCPCS: 96365; 96366; J1756

== ENCOUNTER 2021-10-09 07:24 | Emergency (ER) | payer MEDICARE, SELFPAY ==
[2021-10-09 07:28] VITALS: BP 138/75; PULSE 99; RESP 18; TEMP 36.5; O2SAT 95
--- NOTE | 2021-10-09 08:10 | DI.CT_ITS ---
Exam(s) CT PELVIC WO EXAM: CT PELVIC WO CLINICAL HISTORY: Right hip pain. TECHNIQUE: Imaging Protocol: Axial computed tomography images with coronal and sagittal reformatted images were created and reviewed. COMPARISON: CT ABD PELVIS WITH CONTRAST from 03/26/[address] ABDOMEN/ PELVIS CTA from 10/31/2018 CR XR HIP RT COMPLETE AP PELVIS from 09/25/2021 FINDINGS: Bones: The osseous structures and articular surfaces are intact. Bony alignment is satisfactory. N o cellulitic or osteomyelitic changes are identified. There are moderate degenerative changes seen i n the hips bilaterally with joint space narrowing and periarticular spurring. There are moderate dege nerative changes seen in the lower lumbar spine with disc space narrowing, vacuum discs and endplate spurring. No lytic or sclerotic lesions are identified. There is a bone island in the inferior right pubic ramus which is stable dating back to 03/26/2010. Postsurgical changes are seen in the lower lumba r spine. Soft Tissues: There is atherosclerosis. There is diverticulosis of the colon but no evidence of acute diverticulitis. IMPRESSION: 1. No acute abnormality. 2. Degenerative changes in the hips. 3. Results of this exam have been verbally communicated with provider. RADIATION DOSE DELIVERED: 597.08mGy.cm Total DLP 597.08mGy.cmTotal DLP DATA REPOSITORY: All CT scans at this facility are submitted to the National Radiology Data Registry (NRDR) Dose Index Registry (DIR) with the [employer] (A[employer]). RADIATION OPTIMIZATION: All CT scans at this facility use at least one of these dose optimization te chniques: automated exposure control; mA and/or kV adjustment per patient size (includes targeted exa ms where dose is matched to clinical indication); or iterative reconstruction.
--- NOTE | 2021-10-09 08:10 | DI.CT_ITS ---
Exam(s) CT LUMBAR SPINE WO EXAM: CT LUMBAR SPINE WO CLINICAL HISTORY: L spine pain, and right hip pain. TECHNIQUE: Imaging Protocol: Axial computed tomography images with coronal and sagittal reformatted images were created and reviewed COMPARISON: CT CT ABDOMEN/ PELVIS CTA from 10/31/[address] CHEST HIGH RESOLUTION from 06/24/2021 CR XR LUMBAR SPINE AP, LAT from 09/25/2021 FINDINGS: Bones: The last intervertebral disc space is designated the L5/S1 level for the numbering purpose of this examination. There is again seen a T12 vertebroplasty. Alignment is unremarkable. No spondylo lysis or spondylolisthesis. Status post laminectomy at L4 and L5. Vacuum discs and varying degrees of disc space narrowing is seen throughout the lumbar spine. No fracture is seen. The bones appear o steopenic. Facet arthropathy is seen throughout the lumbar spine. There is multilevel mild central spinal canal stenosis and neural foraminal stenosis. Soft Tissues: The visualized SI joints and sacrum are will maintained. There has been interval incre ase in size of the right pleural effusion since the CT scan from 06/24/2021. Atherosclerosis is prese nt. There is a stable right renal cyst. IMPRESSION: 1. Degenerative changes in the lumbar spine. 2. Small right pleural effusion which has increased in size compared to 06/24/2021. 3. Results of this exam have been verbally communicated with provider. RADIATION DOSE DELIVERED: 833.89mGy.cm Total DLP 833.89mGy.cm Total DLP DATA REPOSITORY: All CT scans at this facility are submitted to the National Radiology Data Registry (NRDR) Dose Index Registry (DIR) with the [employer] ([employer]). RADIATION OPTIMIZATION: All CT scans at this facility use at least one of these dose optimization te chniques: automated exposure control; mA and/or kV adjustment per patient size (includes targeted exa ms where dose is matched to clinical indication); or iterative reconstruction.
--- NOTE | 2021-10-09 08:14 | W.ED.GENAD ---
Discharge Plan Disposition Patient Disposition: HOME Condition: Stable Discharge Details Clinical Impression: Sciatica of right side associated with disorder of lumbosacral spine, Right hip pain Primary Care Provider: Ashley Haro ED Provider: Starla Fountain Home Meds and New Rx's Prescriptions: New cyclobenzaprine 10 mg tablet 10 mg PO TID PRN (Reason: muscle spasm) Qty: 10 0RF Continued d-mannose Powder PO BID 0RF Azo Cranberry 250 mg tablet,chewable 250 mg PO BID 0RF Farxiga 10 mg tablet 10 mg PO DAILY 0RF Entresto 24-26 mg tablet 0.5 tab PO BID 0RF aspirin [Adult Low Dose Aspirin] 81 mg tablet,delayed release (DR/EC) 81 mg PO DAILY Qty: 90 3RF atorvastatin 80 mg tablet 80 mg PO DAILY Qty: 90 3RF trazodone 50 mg tablet 50 mg PO QHS PRN (Reason: insomnia) Qty: 90 3RF d-mannose Powder PO .Once a day 0RF multivitamin [Daily Multi-Vitamin] 1 EACH tablet 1 ea PO DAILY 0RF mesalamine [Lialda] 1.2 GM tablet,delayed release (DR/EC) 2.4 g PO DAILY 0RF Rx Instructions: increased 11/20/16 [facility] lidocaine 5 % adhesive patch,medicated 1 patch TP DAILY PRN (Reason: neck pain, back pain) Qty: 30 3RF Rx Instructions: leave on most painful area for 12 hrs then remove; may cut to size betaxolol 10 mg tablet 20 mg PO DAILY 0RF Rx Instructions: [facility] Cnote [place] 09[place]06[place] [facility] [place] acetaminophen 500 mg tablet 1,000 mg PO Q6H PRN0RF Rx Instructions: PRN for pain bupropion HCl [Wellbutrin XL] 300 mg tablet extended release 24 hr 300 mg PO QAM Qty: 90 3RF nitroglycerin 0.4 mg tablet, sublingual 0.4 mg SL Q5-15M PRN (Reason: chest pain) Qty: 50 6RF potassium chloride [Klor-Con M20] 20 mEq tablet,ER particles/crystals 10 meq PO .QOD 0RF Rx Instructions: [place] [facility] [place]21 furosemide 20 mg tablet 40 mg PO DAILY Qty: 180 3RF Rx Instructions: [place] [facility] [place]21 take 40 mg BID if weight goes up by 3 lbs spironolactone 25 mg tablet 25 mg PO DAILY 0RF Rx Instructions: [place] [facility] [place] tacrolimus 0.1 % ointment 1 applic topical BID PRN0RF Rx Instructions: Apply to affected areas on the genitals BID as needed pantoprazole 40 mg tablet,delayed release (DR/EC) 40 mg PO DAILY Qty: 8 0RF fluoxetine 20 mg capsule 20 mg PO DAILY Qty: 90 3RF clopidogrel 75 mg tablet 75 mg PO DAILY Qty: 90 3RF Entresto 24-26 mg tablet 0.5 tab PO BID 0RF Rx Instructions: 09/29/21-[facility] [place] cardio [place]: start 1/2 tablet twice a day. stop the losartan when you start Entresto. dapagliflozin 10 mg tablet 10 mg PO DAILY 0RF Rx Instructions: 09/29/21- per [facility] [place] cardio note: start Dapa 10mg QD today. Discharge Instructions Instructions: Sciatica (ED), Leg Pain (ED) Additional Instructions: CTs show degenerative changes and arthritis. No significant abnormality no fractures. Follow up with primary care provider in 3-5 days. Return to ED sooner if any worsening or concerns. Increase oral fluids. Please take Tylenol or Ibuprofen with food every 4-6 hours as needed for pain and swelling. Alternate ice and heat. You may also apply lidocaine patches once a day. Take the muscle relaxer and pain medication as needed for moderate to severe pain. Please be careful when standing or walking around as these may make you sleepy. Referrals: Ashley Haro NP [Primary Care Provider] - 5 days Discharge Data Discharge Date/Time-TO BE ENTERED AT DEPARTURE: 10/09/21 10:13 Medical Decision Making 76-year-old male presents to the ER with chief complaint of right hip pain which is chronic. Patient has been seen by orthopedics and had steroid injections on September 25 which helped somewhat however he reports that the pain returned. Patient was seen with physical therapy yesterday. He reports having hard time sleeping and not being able to relax due to the pain. He does have Tylenol extra strength and lidocaine patches at home with which helped somewhat. He denies any loss of bowel or bladder control that is changed from his baseline, he denies any numbness tingling or saddle anesthesia. Pain radiates from his right lateral hip down the back of his thigh and calf. Reports some intermittent right buttock pain intermittent back pain. He has had previous x-rays which show severe arthritis. Other past medical history includes CHF, atrial fibrillation, anemia, diverticulosis, hypertension, coronary artery disease, MN. CT pelvis and L-spine ordered to evaluate hip and lumbar spine. Flexeril and oxycodone ordered. CT Pelvis W/O: FINDINGS: Bones: The osseous structures and articular surfaces are intact. Bony alignment is satisfactory. No cellulitic or osteomyelitic changes are identified. There are moderate degenerative changes seen in the hips bilaterally with joint space narrowing and periarticular spurring. There are moderate degenerative changes seen in the lower lumbar spine with disc space narrowing, vacuum discs and endplate spurring. No lytic or sclerotic lesions are identified. There is a bone island in the inferior right pubic ramus which is stable dating back to 03/26/2010. Postsurgical changes are seen in the lower lumbar spine. Soft Tissues: There is atherosclerosis. There is diverticulosis of the colon but no evidence of acute diverticulitis. IMPRESSION: 1. No acute abnormality. 2. Degenerative changes in the hips. 3. Results of this exam have been verbally communicated with provider. CT L-Spine: FINDINGS: Bones: The last intervertebral disc space is designated the L5/S1 level for the numbering purpose of this examination. There is again seen a T12 vertebroplasty. Alignment is unremarkable. No spondylolysis or spondylolisthesis. Status post laminectomy at L4 and L5. Vacuum discs and varying degrees of disc space narrowing is seen throughout the lumbar spine. No fracture is seen. The bones appear osteopenic. Facet arthropathy is seen throughout the lumbar spine. There is multilevel mild central spinal canal stenosis and neural foraminal stenosis. Soft Tissues: The visualized SI joints and sacrum are will maintained. There has been interval increase in size of the right pleural effusion since the CT scan from 06/24/2021. Atherosclerosis is present. There is a stable right renal cyst. IMPRESSION: 1. Degenerative changes in the lumbar spine. 2. Small right pleural effusion which has increased in size compared to 06/24/2021. 3. Results of this exam have been verbally communicated with provider. Upon patient reevaluation he is resting in bed and appears much more comfortable than on arrival. Patient was sent home with Flexeril and oxycodone to go. Instructed on follow-up with PCP. Discussed home care and strict return instructions. This text was generated using [email or web address] dictation system, please disregard any oddities of phrase or misspellings. HPI General Mode of arrival: ambulatory. Date/Time Provider Initiated Documentation: 10/09/21 07:33. Limitations to Documentation: no limitations. Information obtained by: patient, RN notes reviewed and old records reviewed. HPI Narrative: 76-year-old male presents to the ER with chief complaint of right hip pain which is chronic. Patient has been seen by orthopedics and had steroid injections on September 25 which helped somewhat however he reports that the pain returned. Patient was seen with physical therapy yesterday. He reports having hard time sleeping and not being able to relax due to the pain. He does have Tylenol extra strength and lidocaine patches at home with which helped somewhat. He denies any loss of bowel or bladder control that is changed from his baseline, he denies any numbness tingling or saddle anesthesia. Pain radiates from his right lateral hip down the back of his thigh and calf. Reports some intermittent right buttock pain intermittent back pain. He has had previous x-rays which show severe arthritis. Other past medical history includes CHF, atrial fibrillation, anemia, diverticulosis, hypertension, coronary artery disease, MN. Related Data Home Medications Medication Instructions Recorded Confirmed multivitamin (Daily Multi-Vitamin) 1 ea PO DAILY 07/14/16 10/09/21 mesalamine 1.2 gram tablet,delayed 2.4 g PO DAILY tab-cap 01/08/17 10/09/21 release (Lialda) aspirin 81 mg tablet,delayed 81 mg PO DAILY #90 tab 01/19/19 10/09/21 release (Adult Low Dose Aspirin) lidocaine 5 % topical patch 1 patch TP DAILY PRN #30 each 10/25/19 10/09/21 betaxolol 10 mg tablet 20 mg PO DAILY tab 02/20/21 10/09/21 acetaminophen 500 mg tablet 1,000 mg PO Q6H PRN tab 04/10/21 10/09/21 cranberry fruit concentrate 250 mg 250 mg PO BID tab 04/21/21 10/09/21 chewable tablet (Azo Cranberry) d-mannose pwd PO BID g 04/21/21 10/06/21 atorvastatin 80 mg tablet 80 mg PO DAILY #90 tab-cap 05/06/21 10/09/21 bupropion HCl 300 mg 24 hr tablet, 300 mg PO QAM #90 tab-cap 05/20/21 10/09/21 extended release (Wellbutrin XL) nitroglycerin 0.4 mg sublingual 0.4 mg SL Q5-15M PRN #50 tab 06/09/21 10/09/21 tablet potassium chloride 20 mEq 10 meq PO .QOD tab 06/09/21 10/09/21 tablet,extended release(part/cryst) (Klor-Con M) trazodone 50 mg tablet 50 mg PO QHS PRN #90 tab 06/10/21 10/09/21 furosemide 20 mg tablet 40 mg PO DAILY #180 tab 06/18/21 10/09/21 spironolactone 25 mg tablet 25 mg PO DAILY 06/18/21 10/09/21 d-mannose pwd PO .Once a day g 06/30/21 10/06/21 tacrolimus 0.1 % topical ointment 1 applic TOPICAL BID PRN 07/24/21 10/09/21 pantoprazole 40 mg tablet,delayed 40 mg PO DAILY #8 tab 07/31/21 10/09/21 release clopidogrel 75 mg tablet 75 mg PO DAILY #90 tab 08/06/21 10/09/21 fluoxetine 20 mg capsule 20 mg PO DAILY #90 cap 08/06/21 10/09/21 dapagliflozin 10 mg tablet 10 mg PO DAILY 09/30/21 10/09/21 sacubitril 24 mg-valsartan 26 mg 0.5 tab PO BID tab 09/30/21 10/09/21 tablet (Entresto) dapagliflozin 10 mg tablet 10 mg PO DAILY 10/02/21 10/09/21 (Farxiga) sacubitril 24 mg-valsartan 26 mg 0.5 tab PO BID tab 10/02/21 10/09/21 tablet (Entresto) cyclobenzaprine 10 mg tablet 10 mg PO TID PRN #10 tab 10/09/21 Previous Rx's Medication Instructions Recorded aspirin 81 mg tablet,delayed 81 mg PO DAILY #90 tab 01/19/19 release (Adult Low Dose Aspirin) lidocaine 5 % topical patch 1 patch TP DAILY PRN #30 each 10/25/19 atorvastatin 80 mg tablet 80 mg PO DAILY #90 tab-cap 05/06/21 bupropion HCl 300 mg 24 hr tablet, 300 mg PO QAM #90 tab-cap 05/20/21 extended release (Wellbutrin XL) nitroglycerin 0.4 mg sublingual 0.4 mg SL Q5-15M PRN #50 tab 06/09/21 tablet trazodone 50 mg tablet 50 mg PO QHS PRN #90 tab 06/10/21 furosemide 20 mg tablet 40 mg PO DAILY #180 tab 06/18/21 pantoprazole 40 mg tablet,delayed 40 mg PO DAILY #8 tab 07/31/21 release clopidogrel 75 mg tablet 75 mg PO DAILY #90 tab 08/06/21 fluoxetine 20 mg capsule 20 mg PO DAILY #90 cap 08/06/21 cyclobenzaprine 10 mg tablet 10 mg PO TID PRN #10 tab 10/09/21 Allergies Allergy/AdvReac Type Severity Reaction Status Date / Time morphine AdvReac Severe flashbacks Verified 10/09/21 07:34 from [place] metoclopramide AdvReac Intermediate Verified 10/09/21 07:34 sulfamethoxazole AdvReac Intermediate arthralgia, Verified 10/09/21 07:34 [From Bactrim] myalgia, sweats trimethoprim [From Bactrim] AdvReac Intermediate arthralgia, Verified 10/09/21 07:34 myalgia, sweats adhesive tape AdvReac Skin Verified 10/09/21 07:34 irritation NSAIDS (Non-Steroidal AdvReac GI Bleeding Verified 10/09/21 07:34 Anti-Inflamma General Stated Complaint: Orthopedic MALLORIE: 4 Review of Systems Narrative: Constitutional: Negative for weight loss, alert and oriented, well groomed, normal body habitus, appears comfortable. HEENT: Denies trauma, headaches, blurry vision, nasal discharge, sore throat, trouble swallowing. Chest: Denies chest pain, palpitations, irregular rhythm, hypertension. Respiratory: Denies Shortness of breath, cough, hemoptysis. GI: Denies abdominal pain, nausea, vomiting, diarrhea, constipation. : Denies dysuria, hematuria, flank pain, rectal bleeding. Neuro: Denies dizziness, blurry vision, weakness, syncope, headache or facial numbness. Hematologic: Denies easy bruising, intolerance to heat or cold, hair loss. Musculoskeletal Musculoskeletal: Reports as per HPI, Denies numbness and Reports radiating pain into limb Neurologic Neurologic: Denies numbness PFSH All Active Problems (Updated 10/09/21 @ 09:40 by Starla Fountain) Right hip pain (Acute) Arthritis of right hip (Acute) Lumbar spondylosis (Acute) Neoplasm of uncertain behavior of skin of back (Acute ~06/2021) [place] [facility] [place] [facility] [place] Stucco keratosis (Acute) 07/21/21 [facility] [place] Actinic keratoses (Acute) 07/21/21 [facility] [place] Trochanteric bursitis, right hip (Acute) Depo-medrol injection: 07/11/2021 Restrictive lung disease (Acute) Pulmonary hypertension (Acute) CHF (congestive heart failure) (Chronic) Atrial fibrillation (Chronic) Sensorineural hearing loss, bilateral (Acute) History of excessive cerumen (Acute) SOB (shortness of breath) (Acute) Right hip pain (Acute) Leg swelling (Acute) Tenosynovitis (Acute) right foot 02/05/21 Steroid Injection right 5th metatarsal base/peroneal brevis tendon Dr Rizvi Bilateral leg edema (Acute) Respiratory crackles of both lungs (Acute) Right foot pain (Acute) MEDINA (dyspnea on exertion) (Acute) Fatigue (Acute) Abnormal blood chemistry (Acute) Elevated LFTs (Acute) Low BP (Acute) SOB (shortness of breath) on exertion (Acute) Breast mass, right (Acute) Anemia (Chronic) 10/03/21 [facility] [place] - starting on venofer qmonth x 12 doses. Conductive hearing loss, external ear (Acute) Dysuria (Acute) Actinic keratosis (Acute) Obesity (Chronic) Cataracts, bilateral (Acute) Depressive disorder (Chronic 08/23/86) RECURRENT 12/1999; WORSE BENJAMIN; SON JOLEEN 10/02/97 History of excessive cerumen (Acute) Trochanteric bursitis of left hip (Acute) Left hip pain (Acute) Hyperlipidemia (Acute) MEDINA (dyspnea on exertion) (Acute) Urinary frequency (Acute) Abnormal urine (Acute) Anemia (Chronic) Depression (Chronic) Bradycardia (Acute) Light headed (Acute) Anxiety and depression (Chronic) Dysmetabolic syndrome X (Acute 10/02/11) Sensorineural hearing loss of both ears (Acute) Crohn's disease of colon (Acute 03/31/13) Diverticulosis of colon without diverticulitis (Acute 10/02/11) Impaired fasting glucose (Acute) Localized primary osteoarthritis of left lower leg (Acute 04/02/08) Primary pulmonary hypertension (Acute 08/23/03) Sciatica of right side associated with disorder of lumbosacral spine (Acute 12/16/15) Urinary tract infection associated with indwelling urethral catheter (Acute 07/17/16) Anticoagulation goal of INR 2 to 3 (Acute) Melena (Acute) GI (gastrointestinal bleed) (Chronic) Chronic systolic CHF (congestive heart failure) (Chronic) Paroxysmal A-fib (Chronic) Zoon's balanitis (Acute) [facility] [place]Alen Shave biopsy 05/10/18 Regional enteritis of unspecified site (Acute 07/28/11) dr HEREDIA , STILL INFLAMMATION 12/18/11 FLEX SIG; responds to rx; f/u Dr Stevens [facility] [place] Pulmonary hypertension (Chronic 07/06/16) Moderate by echo 2006. The estimated pulmonary artery systolic pressure was 50mmHg. Periodic limb movement disorder (Acute 11/25/14) Paroxysmal atrial fibrillation (Chronic 02/26/17) CONFIRMED ON ICD monitoring Paraesophageal hernia (Acute 12/23/17) Obstructive sleep apnea syndrome (Chronic 08/23/01) CPAP SINCE ~200103/19/20 F/U Sleep Clinic F/u in 1 year New onset a-fib (Acute 07/04/16) paroxysmal Nasal polyp (Acute 11/01/14) Morbid obesity (Acute 09/28/11) Best recent wt 250 (09/2011); 187 08/2015; goal <200 Localized primary osteoarthritis of left lower leg (Acute 04/02/08) TKA L knee; Dr Francisco Left ventricular systolic dysfunction (Acute 07/06/16) LVEF 39% demand ishemia of myocardium Dr. 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 The estimated pulmonary artery systolic pressure was 50mmHg. 12/17/17 [place] [facility] [place] CAD (coronary artery disease) (Chronic 06/22/16) S/P stenting X 4 06/24 following out of hospital cardiac arrest, STEMI, lytics, hypothermia, [facility] [place], ICD 07/04/16 Bilateral carpal tunnel syndrome (Acute 05/14/15) pos nerve conduction, [facility] [place] 05/03/15 [place] esophagus (Acute 10/22/16) Dr Tay [facility] EGD 10/08/16 BPH w/o urinary obs/LUTS (Acute 10/02/11) Bx [facility] [place]/12/14 Automatic implantable cardioverter-defibrillator in situ (Acute 07/04/16) 07/04/2016 arrest, cath revealing CAD but no high grade clear culprit, hence ICD implanted. Indications: VF Arrest, ischemic cardiomypathy; 39% EF Anticoagulation goal of INR 2 to 3 (Acute 07/10/16) A Fib; multi-vessel Stent x 4; plans life long ASA, Brilinta, Warfarin; 08/14 PLAN CHANGE: 6 mo triple rx, PLAN Change due to GI bleed: D/C ASA; chg Brilinta to Plavix, continue Warfarin 09/2016 Prophylactic antibiotic (Acute 10/02/11) DUE TO KNEE REPLACEMENT Anemia, iron deficiency (Chronic 10/06/16) 09/2016; Dr. [place]; no source on EGD transfused 3 units plus IV iron, Rpt [facility] [place]/24/16 EGD duodenitis & colonoscopy friable oozing ascending colon; likely diverticular; again 02/23/17 [facility] [place] Unstable angina (Acute) Medical History Atrial fibrillation Headache (10/02/11) History of basal cell carcinoma (BCC) HTN (hypertension) Myocardial infarction Otitis externa in other diseases classified elsewhere, right ear Sciatica of right side associated with disorder of lumbosacral spine (12/16/15) MRI mod-severe spinal stenosis lumbar Ulcerative colitis Urinary tract infection associated with indwelling urethral catheter (07/17/16) No Growth 06/22/16; Klebsiella and Pseudomonas 06/24/16 [facility] [place] ambreen catheter related; treated Zosyn, recurrent 07/17 Pseudomonas. Surgical History cardiac catheterization (06/22/16) [facility] [place] arrest Colonoscopy (01/24/15) Dr. Stevens [facility] [place]/24/16 w/ Biopsy 06/10/18[place] [place] spec received 10/08/16. (CVM) A:Duodenum biopsy; -Chronic inflammation of the lamina propria. -preserved villous architeture. -No histologic evidence of celiac diesease. 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), active chronic inflammation,and focal erosion.11/24/16 w/ bx 06/10/18- [facility] [place] 03/16/19[place] [place] Video capsule endoscopy Implantation of automatic cardioverter/defibrillator, total system (AICD) (06/22/16) [facility] [place], s/p V Fib arrest; second episode: stent X 4 &reduced EF 39% Implantation of automatic cardioverter/defibrillator, total system (AICD) (06/24/16) [facility] [place], s/p V Fib arrest; second episode: stent X 4 &reduced EF 39% Pacemaker (07/04/16) paraesophageal diaphramtic hernia repair (02/20/18) [facility] [place] Presence of Watchman left atrial appendage closure device Prostate Biopsy with imaging guidance (03/12/14) [facility] [place] neg for cancer Replacement of total knee joint (~2007) R TKA Dr Francisco 05/[address] Francisco 03/2008 S/P angioplasty (10/25/18) balloon angioplasty 3 vessels S/P CABG x 5 (~04/08/21) Video Capsule Endoscopy (03/29/17) [facility] [place] Family History Mother Neoplasm leukemia Father No problems noted. Sister Alcohol abuse Sister , mva No problems noted. Brother , suicide No problems noted. Social History Smoking/Tobacco Use Status: Former Tobacco Use Pack-years: 8 Tobacco: How many years used: 3 Smoking risk assessment performed?: Yes Alcohol Intake: former Drug use: Never Substance use type: does not use Adopted: No Household members: spouse Current gender identity: male What is your relationship status?: Panel score (0-1 are the most socially isolated patients): 1 Duration: 45-60 minutes/day Frequency: 3-4 times per week Valerie/Restorationist: Sikh Seatbelt use: always Helmet use: Yes Drive intox or ride w/intox dumpster driver: No Do you feel safe at home: Yes Do you feel safe in your relationship?: Yes Exam Narrative Exam Narrative: Constitutional: Alert and oriented x3. Appears stated age. Normal body habitus. Head: Normocephalic, no trauma. Eyes: Pupils PERRL, Red reflex noted, EOM's intact. Eyelids symmetrical without lesions, discharge, or swelling. ENT: Bilateral TM's WNL, External ear normal to inspection, no mastoid TTP, swelling, or erythema, Nasal turbinates WNL, no nasal discharge. Normal dentition, Posterior pharynx WNL, no exudate. Chest: RRR, Normal S1, S2, distal pulses intact. Resp: Lungs clear to auscultation bilaterally, no wheezes, rales, or rhonchi. Abdomen: Soft, non-distended, Normoactive bowel sounds all 4 quads. Musculoskeletal: 5/5 strength to all four extremities. Skin: No suspicious rashes or lesions. Capillary refill less than 2 sec. Neurologic: Cranial nerves II-XII intact. Alert and oriented x 3. Motor: No deficits noted. Sensory: Intact bilaterally all 4 extremities. Reflexes: DTR's intact bilaterally.. Hematologic/Lymphatic: No ecchymosis, no lymphadenopathy. Course Vital Signs Vital signs: Vital Signs Temperature 36.5 C 10/09/21 07:28 Pulse 99 H 10/09/21 07:28 Respiratory Rate 18 10/09/21 07:28 Blood Pressure 138/75 10/09/21 07:28 Pulse Oximetry 95 10/09/21 07:28 Temperature 36.5 C 10/09/21 07:28 Temperature Source Temporal Artery Scan 10/09/21 07:28 Pulse 99 H 10/09/21 07:28 Respiratory Rate 18 10/09/21 07:28 Respiratory Effort Non-Labored 10/09/21 07:32 Blood Pressure 138/75 10/09/21 07:28 Blood Pressure Position Sitting 10/09/21 07:28 Pulse Oximetry 95 10/09/21 07:28 Oxygen Delivery Method Room Air 10/09/21 07:28 Oxygen Flow Rate 0 10/09/21 07:28 Pain Level 9 10/09/21 07:28
[2021-10-09] MEDS: oxyCODONE 5 MG TAB PO (08:21)
[2021-10-09] MEDS: Cyclobenzaprine 10 MG TAB PO (08:22)
[2021-10-09] MEDS: Cyclobenzaprine 10 MG TAB, 3 TABS/BTL PO (10:03)
[2021-10-09 10:04] VITALS: BP 115/56; PULSE 64; RESP 18; O2SAT 96
== END 2021-10-09 10:13 | disposition home or self-care (01) ==
PROVIDERS: Emergency Provider Registered Nurse Emergency; PCP Nurse Practitioner
DX: M51.17 Intervertebral disc disorders with radiculopathy, lumbosacral region (principal); M25.551 Pain in right hip
CPT/HCPCS: 99284; 72131; 72192

== ENCOUNTER 2021-10-13 02:34 | Outpatient (CLI) | payer MEDICARE, SELFPAY ==
[2021-10-13 12:52] LABS: Anion Gap 6.9 mmol/L (3-11); BUN 22 mg/dL (7-18); CO2 28.1 mmol/L (21.0-32.0); CREATININE 1.3 mg/dL (0.70-1.30); Calcium 9.2 mg/dL (8.5-10.1); Chloride 97 mmol/L (98-107); Estimated GFR 53.67 (mL/min/1.73m2); Glucose 107 mg/dL (74-106); Potassium 3.8 mmol/L (3.5-5.1); Sodium 132 mmol/L (136-145)
== END 2021-10-13 02:35 | disposition home or self-care (01) ==
PROVIDERS: PCP Nurse Practitioner
DX: I50.20 Unspecified systolic (congestive) heart failure (principal)
CPT/HCPCS: 36415; 80048

== ENCOUNTER 2021-10-16 01:17 | Outpatient (CLI) | payer MEDICARE, SELFPAY ==
--- NOTE | 2021-10-16 07:15 | DI.RAD_ITS ---
Exam(s) RF JOINT INJECTION FLUORO GUID EXAM: RF JOINT INJECTION FLUORO GUID CLINICAL HISTORY: R HIP INJ UNDER FLUORO,RT HIP PAIN, ARTHRITIS,M16.11,M25.551 TECHNIQUE: Fluoroscopy provided. Radiologist not present. CONTRAST MATERIAL: None COMPARISON: No exams were available for comparison FINDINGS: Fluoroscopy was provided for Dr. Velasquez during right hip therapeutic injection. Submitted image(s) reveal needle tip the lateral aspect junction of the femoral head and neck. Intra -articular contrast was injected Please refer to the procedure report for complete details. Cumulative Dose: camelia Boucher=4.2 mGy IMPRESSION: RADIATION DOSE DELIVERED:
--- NOTE | 2021-10-16 13:38 | W.PROCNOTE ---
Date of service: 10/16/21 Time of Service: 13:15 Procedure Note Date of procedure: 10/16/21 Procedure: Right Hip Injection with Fluoroscopic Guidance Surgeon/Proceduralist/Physician: Yunior Velasquez Procedure Diagnosis: Right Hip Pain Procedure Indications: Sharif has had persistent pain of the RIGHT hip and groin. Noninvasive measures have been tried. He had some marginal improvement with the trochanteric injection but continued to be limited. Therefore, to serve as both diagnostic and therapeutic, an injection under fluoroscopy was recommended. I had discussed the risks of the procedure and the patient elected to proceed. Procedure Description: Sharif was greeted in the flouroscopy room. The correct side was identified and the consent was reviewed with the patient and signed. The patient was then placed in the supine position on the fluoroscopy table. The RIGHT hip was then prepped with Chloraprep. The anterolateral injection starting point was identiifed by bony landmarks and fluoroscopy. The skin and soft tissue in the tract of the injection was anesthetized with 1% Lidocaine. A spinal needle was then inserted deep into the hip joint at the level of the lateral femoral neck under fluoroscopic guidance. A small amount of Omnipaque solution was injected to confirm intraarticular placement. Once confirmed, the hip was injected with 6cc of 0.5% Bupivicaine and 80mg of Depo-Medrol. A bandaid was placed on the injection site.
[2021-10-16] MEDS: Omnipaque 300 MG/ML 10 ML BTL IJ (13:39)
[2021-10-16] MEDS: Bupivacaine 0.5% Pres-Free 10 ML VIAL 5 ML IJ (13:40)
[2021-10-16] MEDS: methylPREDNISolone ACETATE 80 MG/ML VIAL IM (13:41)
== END 2021-10-16 01:37 ==
PROVIDERS: PCP Nurse Practitioner; Visit Provider Student in an Organized Health Care Education/Training Program
DX: M25.551 Pain in right hip; R10.31 Right lower quadrant pain; M16.11 Unilateral primary osteoarthritis, right hip
CPT/HCPCS: 20610; 77002; J1040

== ENCOUNTER 2021-10-17 09:00 | Outpatient (RCR) | payer MEDICARE, SELFPAY | END 2021-10-20 23:59 | disposition home or self-care (01) | LOC: CR 09:00 | PROVIDERS: PCP Nurse Practitioner; Visit Provider Family Medicine | DX: I25.10 Atherosclerotic heart disease of native coronary artery without angina pectoris (principal); Z95.1 Presence of aortocoronary bypass graft; Z51.89 Encounter for other specified aftercare | CPT/HCPCS: S9472 ==

== ENCOUNTER 2021-11-05 02:13 | Outpatient (RCR) | payer MEDICARE, SELFPAY ==
[2021-11-05] MEDS: IRON SUCROSE COMPLEX 300 MG in Normal Saline 250 ML 176.667 MG IVPB (09:19)
[2021-11-05] MEDS: Normal Saline Flush 10 ML SYR IVP (09:19)
== END 2021-11-20 23:59 | disposition home or self-care (01) ==
LOC: INF 02:13
PROVIDERS: PCP Nurse Practitioner; Visit Provider Nurse Practitioner Acute Care
DX: D50.9 Iron deficiency anemia, unspecified (principal)
CPT/HCPCS: 96365; 96366; J1756

== ENCOUNTER 2021-11-18 10:00 | Outpatient (RCR) | payer MEDICARE, SELFPAY ==
[2021-10-23 10:16] VITALS: BP 138/69; PULSE 103; O2SAT 93
[2021-10-28 10:03] VITALS: BP 102/63; PULSE 76; O2SAT 91
[2021-10-30 10:08] VITALS: BP 117/76; PULSE 95
[2021-11-04 10:33] VITALS: BP 127/81; PULSE 93; O2SAT 93
[2021-11-06 09:57] VITALS: BP 121/74; PULSE 92
[2021-11-11 09:54] VITALS: BP 119/73; PULSE 93; O2SAT 95
[2021-11-13 10:20] VITALS: BP 133/72; PULSE 92; O2SAT 91
[2021-11-18 09:54] VITALS: BP 140/72; PULSE 91
[2021-11-20 10:00] VITALS: BP 131/73; PULSE 99
== END 2021-11-20 23:59 | disposition home or self-care (01) ==
LOC: CR 10:00
PROVIDERS: PCP Nurse Practitioner; Visit Provider Family Medicine
DX: Z51.89 Encounter for other specified aftercare (principal); Z95.1 Presence of aortocoronary bypass graft; I25.10 Atherosclerotic heart disease of native coronary artery without angina pectoris
CPT/HCPCS: S9472

== ENCOUNTER 2021-12-03 02:19 | Outpatient (RCR) | payer MEDICARE, SELFPAY ==
[2021-12-03] MEDS: Normal Saline Flush 10 ML SYR IVP (09:25)
[2021-12-03] MEDS: IRON SUCROSE COMPLEX 300 MG in Normal Saline 250 ML 176.667 MG IVPB (09:25)
== END 2021-12-20 23:59 | disposition home or self-care (01) ==
LOC: INF 02:19
PROVIDERS: PCP Nurse Practitioner; Visit Provider Nurse Practitioner Acute Care
DX: D50.9 Iron deficiency anemia, unspecified (principal)
CPT/HCPCS: 96365; 96366; J1756

== ENCOUNTER 2021-12-18 10:00 | Outpatient (RCR) | payer SELFPAY ==
[2021-11-21 00:12] VITALS: BP 131/73; PULSE 99
[2021-11-27 10:04] VITALS: BP 124/69; PULSE 89
[2021-12-04 10:29] VITALS: BP 116/64; PULSE 92; O2SAT 90
[2021-12-09 10:12] VITALS: BP 124/76; PULSE 95
[2021-12-11 10:15] VITALS: BP 121/71; PULSE 95; O2SAT 93
[2021-12-16 10:07] VITALS: BP 129/78; PULSE 71
[2021-12-18 10:07] VITALS: BP 123/78; PULSE 104
== END 2021-12-20 23:59 | disposition home or self-care (01) ==
LOC: CR 10:00
PROVIDERS: PCP Nurse Practitioner; Visit Provider Internal Medicine Cardiovascular Disease
DX: R69 Illness, unspecified (principal)

== ENCOUNTER 2021-12-31 00:56 | Outpatient (RCR) | payer MEDICARE, SELFPAY ==
[2021-12-31] MEDS: IRON SUCROSE COMPLEX 300 MG in Normal Saline 250 ML 176.667 MG IVPB (09:25)
[2021-12-31] MEDS: Normal Saline Flush 10 ML SYR IVP (09:25)
== END 2022-01-20 23:59 | disposition home or self-care (01) ==
LOC: INF 00:56
PROVIDERS: PCP Nurse Practitioner; Visit Provider Nurse Practitioner Acute Care
DX: D50.9 Iron deficiency anemia, unspecified (principal)
CPT/HCPCS: 96365; 96366; J1756

== ENCOUNTER 2022-01-13 10:00 | Outpatient (RCR) | payer SELFPAY ==
[2021-12-21 00:14] VITALS: BP 123/78; PULSE 104
[2021-12-25 10:14] VITALS: BP 125/72; PULSE 89
[2021-12-30 10:00] VITALS: BP 145/81; PULSE 95
[2022-01-01 10:00] VITALS: BP 122/70; PULSE 94
[2022-01-06 09:59] VITALS: BP 141/84; PULSE 91; O2SAT 91
[2022-01-13 10:22] VITALS: BP 139/89; PULSE 92
[2022-01-15 10:01] VITALS: BP 136/79; PULSE 88
== END 2022-01-20 23:59 | disposition home or self-care (01) ==
LOC: CR 10:00
PROVIDERS: PCP Nurse Practitioner; Visit Provider Internal Medicine Cardiovascular Disease
DX: R69 Illness, unspecified (principal)

== ENCOUNTER 2022-01-22 03:07 | Outpatient (CLI) | payer MEDICARE, SELFPAY ==
[2022-01-22 09:18] LABS: HCT 43.9 % (40.0-50.0); HGB 14.8 g/dL (13.5-17.5); MCH 30.5 pg (27.0-33.0); MCHC 33.7 % (32.0-36.0); MCV 90 fL (80-95); Platelet Count 152 10^3/uL (130-400); RBC 4.86 10^6/uL (4.36-5.78); RDW 19.1 % (11.8-14.1); RDW-SD 63.7 fL; WBC 4.72 10^3/uL (4.4-10.8)
[2022-01-22 11:07] LABS: ALT 35 U/L (16-63); AST 33 U/L (15-37); Alkaline Phosphatase 176 U/L (46-116); Anion Gap 11.1 mmol/L (3-11); BUN 27 mg/dL (7-18); Bilirubin, Total 1.1 mg/dL (0.2-1.0); CO2 27.9 mmol/L (21.0-32.0); CREATININE 1.4 mg/dL (0.70-1.30); Calcium 9.1 mg/dL (8.5-10.1); Calculated LDL 52 mg/dL (<100); Chloride 94 mmol/L (98-107); Cholesterol 122 mg/dL (<200); Estimated GFR 49.27 (mL/min/1.73m2); Glucose 111 mg/dL (74-106); HDL Cholesterol 62 mg/dL (40-60); Potassium 4.2 mmol/L (3.5-5.1); Sodium 133 mmol/L (136-145); Total Protein 7.5 g/dL (6.4-8.2); Triglyceride 44 mg/dL (<150); Vitamin B12 1118 pg/mL (193-986)
== END 2022-01-22 03:08 | disposition home or self-care (01) ==
LOC: LBO 03:08
PROVIDERS: PCP Nurse Practitioner; Visit Provider Nurse Practitioner
DX: D64.9 Anemia, unspecified (principal); E78.5 Hyperlipidemia, unspecified; I27.20 Pulmonary hypertension, unspecified; I50.9 Heart failure, unspecified
CPT/HCPCS: 36415; 80053; 80061; 85027; 82607

== ENCOUNTER 2022-01-28 03:15 | Outpatient (RCR) | payer MEDICARE, SELFPAY ==
[2022-01-28] MEDS: Normal Saline Flush 10 ML SYR IVP (09:16)
[2022-01-28] MEDS: IRON SUCROSE COMPLEX 300 MG in Normal Saline 250 ML 176.667 MG IVPB (09:20)
== END 2022-02-19 23:59 | disposition home or self-care (01) ==
LOC: INF 03:15
PROVIDERS: PCP Nurse Practitioner; Visit Provider Nurse Practitioner Acute Care
DX: D50.9 Iron deficiency anemia, unspecified (principal)
CPT/HCPCS: 96365; 96366; J1756

== ENCOUNTER 2022-02-03 10:00 | Outpatient (RCR) | payer SELFPAY ==
[2022-01-21 00:15] VITALS: BP 136/79; PULSE 88
[2022-01-27 10:25] VITALS: BP 111/67; PULSE 82
[2022-02-03 10:20] VITALS: BP 123/75; PULSE 99
== END 2022-02-19 23:59 | disposition home or self-care (01) ==
LOC: CR 10:00
PROVIDERS: PCP Nurse Practitioner; Visit Provider Internal Medicine Cardiovascular Disease
DX: R69 Illness, unspecified (principal)

== ENCOUNTER 2022-02-25 02:31 | Outpatient (RCR) | payer MEDICARE, SELFPAY ==
[2022-02-25] MEDS: Normal Saline Flush 10 ML SYR IVP (13:01)
[2022-02-25] MEDS: IRON SUCROSE COMPLEX 300 MG in Normal Saline 250 ML 176.667 MG IVPB (13:01)
== END 2022-03-22 23:59 | disposition home or self-care (01) ==
LOC: INF 02:31
PROVIDERS: PCP Nurse Practitioner; Visit Provider Nurse Practitioner Acute Care
DX: D50.9 Iron deficiency anemia, unspecified (principal)
CPT/HCPCS: 96365; 96366; J1756

== ENCOUNTER 2022-02-25 18:43 | Outpatient (CLI) | payer MEDICARE, SELFPAY ==
[2022-02-25 13:26] LABS: Anion Gap 9.6 mmol/L (3-11); BUN 31 mg/dL (7-18); CO2 26.4 mmol/L (21.0-32.0); CREATININE 1.4 mg/dL (0.70-1.30); Chloride 95 mmol/L (98-107); Estimated GFR 49.27 (mL/min/1.73m2); Glucose 113 mg/dL (74-106); NT-proBNP 7379 pg/mL (<300); Sodium 131 mmol/L (136-145)
== END 2022-02-25 18:44 | disposition home or self-care (01) ==
LOC: LBO 18:45
PROVIDERS: PCP Nurse Practitioner
DX: I50.20 Unspecified systolic (congestive) heart failure (principal)
CPT/HCPCS: 36415; 80048; 83880

== ENCOUNTER 2022-03-10 02:00 | Outpatient (CLI) | payer MEDICARE, SELFPAY ==
[2022-03-10 14:35] LABS: Anion Gap 8.3 mmol/L (3-11); BUN 24 mg/dL (7-18); CO2 34.7 mmol/L (21.0-32.0); CREATININE 1.3 mg/dL (0.70-1.30); Calcium 9.2 mg/dL (8.5-10.1); Chloride 86 mmol/L (98-107); Estimated GFR 53.67 (mL/min/1.73m2); Glucose 91 mg/dL (74-106); NT-proBNP 7794 pg/mL (<300); Sodium 129 mmol/L (136-145)
[2022-03-10 14:52] LABS: Potassium 2.5 mmol/L (3.5-5.1)
== END 2022-03-10 02:01 | disposition home or self-care (01) ==
PROVIDERS: PCP Nurse Practitioner
DX: I50.20 Unspecified systolic (congestive) heart failure (principal)
CPT/HCPCS: 36415; 80048; 83880

== ENCOUNTER 2022-03-12 01:37 | Outpatient (CLI) | payer MEDICARE, SELFPAY ==
[2022-03-12 10:31] LABS: Anion Gap 5.9 mmol/L (3-11); BUN 29 mg/dL (7-18); CO2 34.1 mmol/L (21.0-32.0); CREATININE 1.7 mg/dL (0.70-1.30); Calcium 9.7 mg/dL (8.5-10.1); Chloride 88 mmol/L (98-107); Estimated GFR 39.38 (mL/min/1.73m2); Glucose 109 mg/dL (74-106); Potassium 3.8 mmol/L (3.5-5.1); Sodium 128 mmol/L (136-145)
== END 2022-03-12 01:38 | disposition home or self-care (01) ==
LOC: LBO 01:37
PROVIDERS: PCP Nurse Practitioner; Visit Provider Physician Assistant
DX: E87.6 Hypokalemia (principal); I50.20 Unspecified systolic (congestive) heart failure
CPT/HCPCS: 36415; 80048

== ENCOUNTER 2022-03-18 04:01 | Outpatient (CLI) | payer MEDICARE, SELFPAY | END 2022-03-18 04:02 | disposition home or self-care (01) | LOC: LBO 04:01 | PROVIDERS: PCP Nurse Practitioner; Visit Provider Physician Assistant ==

== ENCOUNTER 2022-03-19 03:12 | Outpatient (CLI) | payer MEDICARE, SELFPAY ==
[2022-03-19 10:20] LABS: BUN 39 mg/dL (7-18); CREATININE 1.6 mg/dL (0.70-1.30); Calcium 9.3 mg/dL (8.5-10.1); Estimated GFR 42.24 (mL/min/1.73m2); Glucose 93 mg/dL (74-106); NT-proBNP 6789 pg/mL (<300)
[2022-03-19 10:26] LABS: CO2 27.7 mmol/L (21.0-32.0); Chloride 90 mmol/L (98-107)
[2022-03-19 10:33] LABS: Potassium 4.3 mmol/L (3.5-5.1); Sodium 125 mmol/L (136-145)
[2022-03-19 10:34] LABS: Anion Gap 7.3 mmol/L (3-11)
== END 2022-03-19 03:13 | disposition home or self-care (01) ==
LOC: LBO 03:13
PROVIDERS: PCP Nurse Practitioner; Visit Provider Physician Assistant
DX: I50.20 Unspecified systolic (congestive) heart failure (principal); E87.6 Hypokalemia
CPT/HCPCS: 36415; 80048; 83880

== ENCOUNTER 2022-03-24 03:16 | Outpatient (CLI) | payer MEDICARE, SELFPAY ==
[2022-03-24 08:17] LABS: Abs Immature Grans 0.01 10^3/uL (0.0-0.06); Absolute Basophil Count 0.05 10^3/uL (0.0-0.2); Absolute Eosinophil Count 0.09 10^3/uL (0.0-0.7); Absolute Lymphocyte Count 0.74 10^3/uL (1.2-3.4); Absolute Monocyte Count 0.65 10^3/uL (0.1-0.8); Absolute Neutrophil Count 2.58 10^3/uL (1.2-6.7); Basophils % 1.2; Eosinophils % 2.2; HCT 31.1 % (40.0-50.0); HGB 9.5 g/dL (13.5-17.5); Immature Grans % 0.2; MCH 26.5 pg (27.0-33.0); MCHC 30.5 % (32.0-36.0); MCV 87 fL (80-95); MPV 9.1 fL (8.0-11.0); Monocytes % 15.8; Neutrophils % 62.6; Platelet Count 184 10^3/uL (130-400); RBC 3.59 10^6/uL (4.36-5.78); RDW 17.2 % (11.8-14.1); RDW-SD 54.1 fL; WBC 4.12 10^3/uL (4.4-10.8)
[2022-03-24 08:42] LABS: ALT 26 U/L (16-63); AST 33 U/L (15-37); Albumin 3.4 g/dL (3.4-5.0); Alkaline Phosphatase 148 U/L (46-116); Anion Gap 4.7 mmol/L (3-11); BUN 31 mg/dL (7-18); Bilirubin, Total 0.8 mg/dL (0.2-1.0); CO2 28.3 mmol/L (21.0-32.0); CREATININE 1.6 mg/dL (0.70-1.30); Calcium 9.3 mg/dL (8.5-10.1); Chloride 91 mmol/L (98-107); Estimated GFR 42.24 (mL/min/1.73m2); Glucose 125 mg/dL (74-106); Potassium 4.8 mmol/L (3.5-5.1); Total Protein 7.1 g/dL (6.4-8.2)
[2022-03-24 08:47] LABS: Sodium 124 mmol/L (136-145)
[2022-03-24 09:04] LABS: FREE T4 1.03 ng/dL (0.76-1.46)
== END 2022-03-24 03:17 | disposition home or self-care (01) ==
LOC: LBO 03:17
PROVIDERS: PCP Nurse Practitioner; Visit Provider Physician Assistant
DX: E87.1 Hypo-osmolality and hyponatremia (principal); I10 Essential (primary) hypertension; R63.4 Abnormal weight loss; J45.909 Unspecified asthma, uncomplicated; I50.20 Unspecified systolic (congestive) heart failure; R60.9 Edema, unspecified
CPT/HCPCS: 36415; 80053; 84439; 84443; 85025

== ENCOUNTER 2022-03-24 10:23 | Outpatient (RCR) | payer SELFPAY ==
[2022-03-24 10:29] VITALS: BP 109/73; PULSE 87; O2SAT 96
== END 2022-04-22 23:59 | disposition home or self-care (01) ==
LOC: CR 10:23
PROVIDERS: PCP Nurse Practitioner; Visit Provider Internal Medicine Cardiovascular Disease
DX: R69 Illness, unspecified (principal)

== ENCOUNTER 2022-04-09 03:37 | Outpatient (CLI) | payer MEDICARE, SELFPAY ==
[2022-04-09 11:54] LABS: Anion Gap 7.6 mmol/L (3-11); BUN 26 mg/dL (7-18); CO2 34.4 mmol/L (21.0-32.0); CREATININE 1.6 mg/dL (0.70-1.30); Calcium 9.9 mg/dL (8.5-10.1); Chloride 96 mmol/L (98-107); Estimated GFR 42.24 (mL/min/1.73m2); Glucose 111 mg/dL (74-106); Sodium 138 mmol/L (136-145); TSH (W/Ref FT4) 12.08 uIU/mL (0.36-3.74)
[2022-04-09 12:16] LABS: FREE T4 1.01 ng/dL (0.76-1.46)
== END 2022-04-09 03:38 | disposition home or self-care (01) ==
LOC: LBO 03:37
PROVIDERS: PCP Nurse Practitioner; Visit Provider Nurse Practitioner
DX: D64.9 Anemia, unspecified (principal); R79.89 Other specified abnormal findings of blood chemistry; E87.1 Hypo-osmolality and hyponatremia
CPT/HCPCS: 36415; 80048; 84439; 84443

== ENCOUNTER 2022-04-15 09:00 | Outpatient (RCR) | payer MEDICARE, SELFPAY | END 2022-04-22 23:59 | disposition home or self-care (01) | LOC: CR 09:00 | PROVIDERS: PCP Nurse Practitioner; Referring Provider Physician Assistant; Visit Provider Internal Medicine Cardiovascular Disease | DX: Z51.89 Encounter for other specified aftercare (principal); I50.23 Acute on chronic systolic (congestive) heart failure | CPT/HCPCS: S9472 ==

== ENCOUNTER 2022-04-22 02:17 | Outpatient (RCR) | payer MEDICARE, SELFPAY ==
[2022-03-25] MEDS: IRON SUCROSE COMPLEX 300 MG in Normal Saline 250 ML 176.667 MG IVPB (09:17)
[2022-03-25] MEDS: Normal Saline Flush 10 ML SYR IVP (09:17)
[2022-03-25 09:30] LABS: HCT 31.6 % (40.0-50.0); HGB 10.1 g/dL (13.5-17.5); MCH 27.3 pg (27.0-33.0); MCV 85 fL (80-95); MPV 10.1 fL (8.0-11.0); Platelet Count 216 10^3/uL (130-400); RDW 17.4 % (11.8-14.1); RDW-SD 54.1 fL; WBC 4.04 10^3/uL (4.4-10.8)
[2022-03-25 11:34] LABS: BUN 25 mg/dL (7-18); CREATININE 1.1 mg/dL (0.70-1.30); Calcium 7.2 mg/dL (8.5-10.1); Chloride 101 mmol/L (98-107); Glucose 97 mg/dL (74-106); Potassium 4.5 mmol/L (3.5-5.1); Sodium 131 mmol/L (136-145); TSH (W/Ref FT4) 7.66 uIU/mL (0.36-3.74)
[2022-04-22] MEDS: IRON SUCROSE COMPLEX 300 MG in Normal Saline 250 ML 176.667 MG IVPB (09:07)
[2022-04-22] MEDS: Normal Saline Flush 10 ML SYR IVP (09:07)
== END 2022-04-22 23:59 | disposition home or self-care (01) ==
LOC: INF 02:17
PROVIDERS: PCP Nurse Practitioner; Visit Provider Nurse Practitioner Acute Care
DX: E87.1 Hypo-osmolality and hyponatremia (principal); D64.9 Anemia, unspecified; R79.9 Abnormal finding of blood chemistry, unspecified
CPT/HCPCS: 36415; 80048; 85027; 96365; 96366; 84439; 84443; J1756

== ENCOUNTER 2022-05-20 02:53 | Outpatient (RCR) | payer MEDICARE, SELFPAY ==
[2022-05-20] MEDS: IRON SUCROSE COMPLEX 300 MG in Normal Saline 250 ML 176.667 MG IVPB (09:04)
[2022-05-20] MEDS: Normal Saline Flush 10 ML SYR IVP (09:04)
== END 2022-05-22 23:59 | disposition home or self-care (01) ==
LOC: INF 02:53
PROVIDERS: PCP Nurse Practitioner; Visit Provider Nurse Practitioner Acute Care
DX: D50.9 Iron deficiency anemia, unspecified (principal)
CPT/HCPCS: 96365; 96366; J1756

== ENCOUNTER 2022-05-22 10:15 | Outpatient (RCR) | payer MEDICARE, SELFPAY | END 2022-05-22 23:59 | disposition home or self-care (01) | LOC: CR 10:15 | PROVIDERS: PCP Nurse Practitioner; Referring Provider Physician Assistant; Visit Provider Internal Medicine Cardiovascular Disease | DX: Z51.89 Encounter for other specified aftercare (principal); I50.23 Acute on chronic systolic (congestive) heart failure | CPT/HCPCS: S9472 ==

== ENCOUNTER 2022-05-27 09:29 | Outpatient (RCR) | payer MEDICARE, SELFPAY | END 2022-06-22 23:59 | disposition home or self-care (01) | LOC: CR 09:29 | PROVIDERS: PCP Nurse Practitioner; Referring Provider Physician Assistant; Visit Provider Internal Medicine Cardiovascular Disease | DX: Z51.89 Encounter for other specified aftercare (principal); I50.23 Acute on chronic systolic (congestive) heart failure | CPT/HCPCS: S9472 ==

== ENCOUNTER 2022-06-04 10:42 | Emergency (ER) | payer MEDICARE, SELFPAY ==
--- NOTE | 2022-06-04 10:41 | ED.GENADUL_ITS ---
Discharge Plan Disposition Patient Disposition: HOME Condition: Improving Discharge Details Clinical Impression: Right hip pain, History of osteoarthritis Primary Care Provider: Ashley Haro ED Provider: Caroline Cadena Home Meds and New Rx's Prescriptions: New methocarbamol 500 mg tablet 500 mg PO Q6H PRN (Reason: muscle spasm) Qty: 14 0RF prednisone 20 mg tablet See Rx Instructions .ROUTE .COMPLEX Qty: 12 0RF Rx Instructions: Take 3 tabs daily for 2 days, then 2 tabs daily for 2 days, then 1 tab daily for 2 days Continued Azo Cranberry 250 mg tablet,chewable 250 mg PO BID d-mannose Powder PO .QD Farxiga 10 mg tablet 10 mg PO DAILY carboxymethylcellulose sodium 0.5 % dropperette 1 drp ophthalmic (eye) TID PRN torsemide 20 mg tablet 20 mg PO BID aspirin [Adult Low Dose Aspirin] 81 mg tablet,delayed release (DR/EC) 81 mg PO DAILY Qty: 90 3RF trazodone 50 mg tablet 50 mg PO QHS PRN (Reason: insomnia) Qty: 90 3RF mesalamine [Lialda] 1.2 GM tablet,delayed release (DR/EC) 2.4 g PO DAILY Rx Instructions: increased 11/20/16 Soledad Mata, rohini lidocaine 5 % adhesive patch,medicated 1 patch TP DAILY PRN (Reason: neck pain, back pain) Qty: 30 3RF Rx Instructions: leave on most painful area for 12 hrs then remove; may cut to size betaxolol 10 mg tablet 20 mg PO DAILY Rx Instructions: [facility] Cnbecky dated 09/06/19 [facility] [place]/19[place]21 acetaminophen 500 mg tablet 1,000 mg PO Q6H PRN Rx Instructions: PRN for pain nitroglycerin 0.4 mg tablet, sublingual 0.4 mg SL Q5-15M PRN (Reason: chest pain) Qty: 50 6RF tacrolimus 0.1 % ointment 1 applic topical BID PRN Rx Instructions: Apply to affected areas on the genitals BID as needed pantoprazole 40 mg tablet,delayed release (DR/EC) 40 mg PO DAILY Qty: 8 0RF fluoxetine 20 mg capsule 20 mg PO DAILY Qty: 90 3RF clopidogrel 75 mg tablet 75 mg PO DAILY Qty: 90 3RF multivitamin Tablet 1 tab PO QA Entresto 24- mg tablet 1 tab PO BID spironolactone 25 mg tablet 25 mg PO DAILY Rx Instructions: Per [facility] 06/17/21 levothyroxine 25 mcg tablet 25 mcg PO DAILY Qty: 90 1RF atorvastatin 80 mg tablet 80 mg PO DAILY Qty: 90 3RF lidocaine 5 % adhesive patch,medicated 2 patch topical DAILY Qty: 30 2RF Rx Instructions: leave on most painful area for up to 12 hrs bupropion HCl [Wellbutrin XL] 300 mg tablet extended release 24 hr 300 mg PO QAM Qty: 90 3RF Discharge Instructions Instructions: Osteoarthritis (ED), Sciatica (ED), Hip Pain (ED) Additional Instructions: Your imaging today showed you have degenerative changes consistent with your arthritis. Apply ice to the affected area several times daily for 20 minutes at a time. Take Tylenol as needed and directed for pain. Take the oxycodone and muscle relaxers as needed and directed for pain not relieved with Tylenol. Take the steroids as directed until finished. You have been placed on care management's list to see if we are able to schedule an earlier follow-up appointment for you with Dr. Velasquez. Return immediately to the emergency department if you develop any worsening or new concerning symptoms. Referrals: Yunior Velasquez MD [ [facility] STAFF PHYSICIAN] - Discharge Data Discharge Physician: Caroline Cadena Medical Decision Making 77-year-old male with a history of CHF, hypertension, coronary artery disease, sleep apnea, paroxysmal atrial fibrillation and known osteoarthritis of the right hip with history of cortisone injection in the right hip under fluoroscopy in September 2021 presents with acute worsening of his chronic right hip pain for the past 4 days. Denies any injury, fever or cauda equina symptoms. Pain worse with movement. He has a 2 x 2 centimeter area of ecchymosis to the right lateral hip which is tender to palpation but denies any known injury. He has full range of motion of the hip but with pain. There is no obvious deformity or laxity. He is neurovascularly intact. Back is normal to inspection. He has no report of fever, is afebrile here, appears nontoxic and no cellulitis at site noted so does not appear consistent with septic arthritis. Will refer for right hip and pelvis x-rays and give a dose of Tylenol and oxycod one. X-rays reviewed and notes degenerative changes in the right hip. Patient reassessed and attempted to ambulate after oxycodone and Tylenol but he would not stand to get out of bed due to pain. Patient does now endorse that he has had some lower back pain in addition to right hip pain. Review of records note that patient has had sciatica and arthritis. We will give a dose of Decadron p.o., tramadol p.o. On reattempt ambulation, patient was able to get out of the bed and stand and pain is improved and he feels comfortable going home. We will add muscle relaxers for spasm. He was given a dose of Valium p.o. Prescriptions for prednisone and methocarbamol sent electronically to his pharmacy. He was given oxycodone bottle to go. Patient placed on orthopedic list to see if they were able to fit him in sooner than his 06/22 appointment for a possible cortisone injection. Patient was advised to return here immediately if he develops any worsening pain, fever, skin changes or any other Medical Records Medical records reviewed: Yes I reviewed the patient's medical records. Imaging Data Radiologic Study: Radiologist's impression: XR HIP RT COMPLETE ? AP PELVIS CLINICAL HISTORY: ? R hip pain/arthritis, r/o fx, worsening arthritis.? TECHNIQUE:? 2D digital imaging was performed of the right hip. Three images were obtained.? AP pelvis and lateral right hip? views were obtained. COMPARISON:? CR XR HIP RT COMPLETE ? AP PELVIS from 09/25/2021 FINDINGS: BONES: No acute fracture is present. No bony destructive lesion is seen. JOINTS: No dislocation present. There are degenerative changes seen in the hips bilaterally with joint space narrowing and acetabular spurring.? Degenerative changes are seen in the lower lumbar spine. SOFT TISSUE: Atherosclerosis is present.? IMPRESSION: 1. There are degenerative changes seen in the right hip. 2. No acute abnormality.? HPI General Mode of arrival: ambulatory . Date/Time Provider Initiated Documentation: 06/04/22 10:52 . Limitations to Documentation: no limitations . Information obtained by: patient . HPI Narrative: Pt is a 77yo M with a history of osteoarthritis of the right hip with history of cortisone injection in the right hip under fluoroscopy in September 2021 presents for acute worsening of his chronic hip pain for the past 4 days. He is taking Tylenol for pain with some relief. He states the pain is improved at rest but worse with any movement and had difficulty getting out of bed today. He denies any new injury, fever, chest pain, shortness of breath, abdominal pain, bowel or bladder incontinence, leg weakness or numbness. He states the pain does radiate from his right hip down his right thigh at times. He denies any significant lower back pain. Related Data Home Medications Medication Instructions Recorded Confirmed mesalamine 1.2 gram tablet,delayed 2.4 g PO DAILY 01/08/17 06/04/22 release (Lialda) aspirin 81 mg tablet,delayed 81 mg PO DAILY #90 tabs 01/19/19 06/04/22 release (Adult Low Dose Aspirin) lidocaine 5 % topical patch 1 patch topical DAILY PRN neck 10/25/19 06/04/22 pain, back pain #30 ea betaxolol 10 mg tablet 20 mg PO DAILY 02/20/21 06/04/22 acetaminophen 500 mg tablet 1,000 mg PO Q6H PRN 04/10/21 06/04/22 cranberry fruit concentrate 250 mg 250 mg PO BID 04/21/21 06/04/22 chewable tablet (Azo Cranberry) nitroglycerin 0.4 mg sublingual 0.4 mg sublingual Q5-15M PRN chest 06/09/21 06/04/22 tablet pain #50 tabs trazodone 50 mg tablet 50 mg PO QHS PRN insomnia #90 tabs 06/10/21 06/04/22 tacrolimus 0.1 % topical ointment 1 applic topical BID PRN 07/24/21 06/04/22 pantoprazole 40 mg tablet,delayed 40 mg PO DAILY #8 tabs 07/31/21 06/04/22 release clopidogrel 75 mg tablet 75 mg PO DAILY #90 tabs 08/06/21 06/04/22 fluoxetine 20 mg capsule 20 mg PO DAILY #90 caps 08/06/21 06/04/22 dapagliflozin 10 mg tablet 10 mg PO DAILY 10/02/21 06/04/22 ([facility]) multivitamin 1 tab PO QAM 11/25/21 06/04/22 carboxymethylcellulose sodium 0.5 1 drp ophthalmic (eye) TID PRN 01/15/22 06/04/22 % eye drops in a dropperette d-mannose pwd PO .QD 01/15/22 04/16/22 sacubitril 24 mg-valsartan 26 mg 1 tab PO BID 01/15/22 06/04/22 tablet (Entresto) spironolactone 25 mg tablet 25 mg PO DAILY 01/15/22 06/04/22 levothyroxine 25 mcg tablet 25 mcg PO DAILY #90 tabs 04/13/22 06/04/22 torsemide 20 mg tablet 20 mg PO BID 04/16/22 06/04/22 atorvastatin 80 mg tablet 80 mg PO DAILY #90 tab-caps 05/14/22 06/04/22 lidocaine 5 % topical patch 2 patch topical DAILY low back or 06/01/22 06/04/22 right hip pain #30 ea bupropion HCl 300 mg 24 hr tablet, 300 mg PO QAM #90 tab-caps 06/02/22 06/04/22 extended release (Wellbutrin XL) methocarbamol 500 mg tablet 500 mg PO Q6H PRN muscle spasm #14 06/04/22 tabs prednisone 20 mg tablet See Rx Instructions .Route 06/04/22 .COMPLEX #12 tabs Previous Rx's Medication Instructions Recorded aspirin 81 mg tablet,delayed 81 mg PO DAILY #90 tabs 01/19/19 release (Adult Low Dose Aspirin) lidocaine 5 % topical patch 1 patch topical DAILY PRN neck 10/25/19 pain, back pain #30 ea nitroglycerin 0.4 mg sublingual 0.4 mg sublingual Q5-15M PRN chest 06/09/21 tablet pain #50 tabs trazodone 50 mg tablet 50 mg PO QHS PRN insomnia #90 tabs 06/10/21 pantoprazole 40 mg tablet,delayed 40 mg PO DAILY #8 tabs 07/31/21 release clopidogrel 75 mg tablet 75 mg PO DAILY #90 tabs 08/06/21 fluoxetine 20 mg capsule 20 mg PO DAILY #90 caps 08/06/21 levothyroxine 25 mcg tablet 25 mcg PO DAILY #90 tabs 04/13/22 atorvastatin 80 mg tablet 80 mg PO DAILY #90 tab-caps 05/14/22 lidocaine 5 % topical patch 2 patch topical DAILY low back or 06/01/22 right hip pain #30 ea bupropion HCl 300 mg 24 hr tablet, 300 mg PO QAM #90 tab-caps 06/02/22 extended release (Wellbutrin XL) methocarbamol 500 mg tablet 500 mg PO Q6H PRN muscle spasm #14 06/04/22 tabs prednisone 20 mg tablet See Rx Instructions .Route 06/04/22 .COMPLEX #12 tabs Allergies Allergy/AdvReac Type Severity Reaction Status Date / Time morphine AdvReac Severe flashbacks Verified 04/22/22 15:04 from [place] metoclopramide AdvReac Intermediate weakness, Verified 04/22/22 15:04 sob, fatigue sulfamethoxazole AdvReac Intermediate arthralgia, Verified 04/22/22 15:04 [From Bactrim] myalgia, sweats trimethoprim [From Bactrim] AdvReac Intermediate arthralgia, Verified 04/22/22 15:04 myalgia, sweats adhesive tape AdvReac Skin Verified 04/22/22 15:04 irritation (steri-strips) NSAIDS (Non-Steroidal AdvReac GI Bleeding Verified 04/22/22 15:04 Anti-Inflamma General Stated Complaint: Orthopedic MALLORIE: 4 Review of Systems All systems reviewed & are unremarkable except as noted in HPI and below Constitutional Constitutional: Reports as per HPI, Denies chills and Denies fever(s) Eyes Eyes: Denies blurry vision ENT Ears, Nose, Mouth, and Throat: Denies dizziness, Denies sore throat and Denies throat swelling Cardiovascular Cardiovascular: Denies chest pain and Denies dyspnea Respiratory Respiratory: Denies cough and Denies dyspnea Gastrointestinal Gastrointestinal: Denies abdominal pain, Denies diarrhea and Denies vomiting Genitourinary Genitourinary: Denies hematuria and Denies dysuria Musculoskeletal Musculoskeletal: Denies back pain and Denies numbness Comments: R hip pain Integumentary/Breasts Skin/Breast: Denies lesions and Denies rash Neurologic Neurologic: Denies dizziness, Denies localized weakness and Denies numbness Allergic/Immunologic Allergic/Immunologic: Denies throat swelling PFSH All Active Problems (Updated 06/04/22 @ 15:56 by Caroline Cadena DO) History of osteoarthritis (Acute) Heart failure with reduced ejection fraction (Acute) 03/30/22 Cardiology Impacted cerumen, right ear (Acute) Lumbar radiculopathy, acute (Acute) Arthritis of right hip (Acute) Lumbar spondylosis (Acute) Neoplasm of uncertain behavior of skin of back (Acute ~06/2021) 07/21/21 [facility] [place] 08/07/21 F/u [facility] [place] Stucco keratosis (Acute) 07/21/21 [facility] [place] Actinic keratoses (Acute) 07/21/21 [facility] [place] Derm note Trochanteric bursitis, right hip (Acute) Depo-medrol injection: 07/11/2021 Restrictive lung disease (Acute) Pulmonary hypertension (Acute) CHF (congestive heart failure) (Chronic) Atrial fibrillation (Chronic) Sensorineural hearing loss, bilateral (Acute) History of excessive cerumen (Acute) SOB (shortness of breath) (Acute) Right hip pain (Acute) Leg swelling (Acute) Tenosynovitis (Acute) right foot 02/05/21 Steroid Injection right 5th metatarsal base/peroneal brevis tendon Dr Rizvi Bilateral leg edema (Acute) Respiratory crackles of both lungs (Acute) Right foot pain (Acute) MEDINA (dyspnea on exertion) (Acute) Fatigue (Acute) Abnormal blood chemistry (Acute) Elevated LFTs (Acute) Low BP (Acute) SOB (shortness of breath) on exertion (Acute) Breast mass, right (Acute) Anemia (Chronic) 10/03/21 [facility] [place] Hem/Onc - starting on venofer qmonth x 12 doses. Conductive hearing loss, external ear (Acute) Dysuria (Acute) Actinic keratosis (Acute) Obesity (Chronic) Cataracts, bilateral (Acute) Depressive disorder (Chronic 08/23/86) RECURRENT 12/1999; WORSE BENJAMIN; SON JOLEEN 10/02/97 History of excessive cerumen (Acute) Trochanteric bursitis of left hip (Acute) Left hip pain (Acute) Hyperlipidemia (Acute) MEDINA (dyspnea on exertion) (Acute) Urinary frequency (Acute) Abnormal urine (Acute) Anemia (Chronic) Depression (Chronic) Bradycardia (Acute) Light headed (Acute) Anxiety and depression (Chronic) Dysmetabolic syndrome X (Acute 10/02/11) Sensorineural hearing loss of both ears (Acute) Crohn's disease of colon (Acute 03/31/13) Diverticulosis of colon without diverticulitis (Acute 10/02/11) Impaired fasting glucose (Acute) Localized primary osteoarthritis of left lower leg (Acute 04/02/08) Primary pulmonary hypertension (Acute 08/23/03) Sciatica of right side associated with disorder of lumbosacral spine (Acute 12/16/15) Urinary tract infection associated with indwelling urethral catheter (Acute 07/17/16) Anticoagulation goal of INR 2 to 3 (Acute) Melena (Acute) GI (gastrointestinal bleed) (Chronic) Chronic systolic CHF (congestive heart failure) (Chronic) Paroxysmal A-fib (Chronic) Zoon's balanitis (Acute) [facility]Alen Shave biopsy 05/10/18 Regional enteritis of unspecified site (Acute 07/28/11) dr HEREDIA , STILL INFLAMMATION 12/18/11 FLEX SIG; responds to rx; f/u Dr Stevens [facility] Pulmonary hypertension (Chronic 07/06/16) Moderate by echo 2006. The estimated pulmonary artery systolic pressure was 50mmHg. Periodic limb movement disorder (Acute 11/25/14) Paroxysmal atrial fibrillation (Chronic 02/26/17) CONFIRMED ON ICD monitoring Paraesophageal hernia (Acute 12/23/17) Obstructive sleep apnea syndrome (Chronic 08/23/01) CPAP SINCE ~200103/19/20 F/U Sleep Clinic F/u in 1 year New onset a-fib (Acute 07/04/16) paroxysmal Nasal polyp (Acute 11/01/14) Morbid obesity (Acute 09/28/11) Best recent wt 250 (09/2011); 187 08/2015; goal <200 Localized primary osteoarthritis of left lower leg (Acute 04/02/08) TKA L knee; Dr Francisco Left ventricular systolic dysfunction (Acute 07/06/16) LVEF 39% demand ishemia of myocardium Dr. 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 The estimated pulmonary artery systolic pressure was 50mmHg. 12/17/17 echo [facility] CAD (coronary artery disease) (Chronic 06/22/16) S/P stenting X 4 06/24 following out of hospital cardiac arrest, STEMI, lytics, hypothermia, [facility] Cardiology, ICD 07/04/16 Bilateral carpal tunnel syndrome (Acute 05/14/15) pos nerve conduction, [facility] 05/03/15 [place] esophagus (Acute 10/22/16) Dr Tay [facility] EGD 10/08/16 BPH w/o urinary obs/LUTS (Acute 10/02/11) Bx [facility] 03/12/14 Automatic implantable cardioverter-defibrillator in situ (Acute 07/04/16) 07/04/2016 arrest, cath revealing CAD but no high grade clear culprit, hence ICD implanted. Indications: VF Arrest, ischemic cardiomypathy; 39% EF Anticoagulation goal of INR 2 to 3 (Acute 07/10/16) A Fib; multi-vessel Stent x 4; plans life long ASA, Brilinta, Warfarin; 08/14 PLAN CHANGE: 6 mo triple rx, PLAN Change due to GI bleed: D/C ASA; chg Brilinta to Plavix, continue Warfarin 09/2016 Prophylactic antibiotic (Acute 10/02/11) DUE TO KNEE REPLACEMENT Anemia, iron deficiency (Chronic 10/06/16) 09/2016; Dr. [place]; no source on EGD transfused 3 units plus IV iron, Rpt [facility] 11/24/16 EGD duodenitis & colonoscopy friable oozing ascending colon; likely diverticular; again 02/23/17 [facility] Unstable angina (Acute) Medical History Atrial fibrillation Headache (10/02/11) History of basal cell carcinoma (BCC) HTN (hypertension) Myocardial infarction Otitis externa in other diseases classified elsewhere, right ear Sciatica of right side associated with disorder of lumbosacral spine (12/16/15) MRI mod-severe spinal stenosis lumbar Ulcerative colitis Urinary tract infection associated with indwelling urethral catheter (07/17/16) No Growth 06/22/16; Klebsiella and Pseudomonas 06/24/16 [facility] [place], ambreen catheter related; treated Zosyn, recurrent 07/17 Pseudomonas. Surgical History cardiac catheterization (06/22/16) [facility] following arrest Colonoscopy (01/24/15) Dr. Stevens [facility] 11/24/16 w/ Biopsy 06/10/18-[facility] [place] Endoscopy spec received 10/08/16. (CVM) A:Duodenum biopsy; -Chronic inflammation of the lamina propria. -preserved villous architeture. -No histologic evidence of celiac diesease. 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), active chronic inflammation,and focal erosion.11/24/16 w/ bx 06/10/18- [facility] GI 03/16/19-[facility] Video capsule endoscopy Implantation of automatic cardioverter/defibrillator, total system (AICD) (06/22/16) [facility] [place], s/p V Fib arrest; second episode: stent X 4 &reduced EF 39% Implantation of automatic cardioverter/defibrillator, total system (AICD) (06/24/16) [facility] [place], s/p V Fib arrest; second episode: stent X 4 &reduced EF 39% Pacemaker (07/04/16) paraesophageal diaphramtic hernia repair (02/20/18) [facility] [place] Presence of Watchman left atrial appendage closure device Prostate Biopsy with imaging guidance (03/12/14) [facility] neg for cancer Replacement of total knee joint (~2007) R TKA Dr Francisco 05/[address] Francisco 03/2008 S/P angioplasty (10/25/18) balloon angioplasty 3 vessels S/P CABG x 5 (~04/08/21) Video Capsule Endoscopy (03/29/17) [facility] [place] Family History Mother Neoplasm leukemia Father No problems noted. Sister Alcohol abuse Sister , mva No problems noted. Brother , suicide No problems noted. 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: No Do you feel safe at home: Yes Do you feel safe in your relationship?: Yes Exam Const General: cooperative, healthy appearing and no acute distress Orientation: alert, awake and oriented x3 HENMT Head: normal to inspection Face and sinus: normal facial exam Eyes General: appearance normal, both eyes and all related structures Pupils: PERRL EOM: EOM intact bilaterally Neck Neck: normal visual inspection and No submandibular swelling Lymphatic: no lymphadenopathy noted Chest Chest: normal inspection of the chest and no tenderness Resp Effort & Inspection: normal respiratory effort and able to speak in complete sentences Auscultation: clear to auscultation bilaterally Cardio Rate: regular rate Rhythm: regular rhythm GI Inspection: normal to inspection Palpation: soft, not firm, not rigid and nontender Auscultation: hypoactive bowel sounds Male General Exam: Yes normal external exam Back/Spine/Pelvis Thoracic/Lumbar Spine: thoracic and lumbar spine normal to inspection Skin General skin exam: no rashes or lesions noted Neuro General: patient alert, patient awake and patient oriented x3 Cognition: normal cognition Speech: speech normal Motor: muscle tone normal throughout Sensory Exam: no sensory deficits noted Extrem Upper/lower leg/hip images: 1. 2 x 2 centimeter area of ecchymosis with minimal tenderness to palpation to the right lateral hip. There is minimal pain with range of motion but no obviou s laxity or limitation of motion. No deformity to the right hip. Remainder of right hip and buttock normal to inspection. Other: Bilateral DP/PT pulses intact. Psych Appearance: grossly normal Mental Status: mental status grossly normal Speech and Movement: speech and movement normal Affect: normal affect
[2022-06-04 10:44] VITALS: BP 134/79; PULSE 78; RESP 18; TEMP 36.9; O2SAT 94
--- NOTE | 2022-06-04 11:00 | DI.RAD_ITS ---
Exam(s) XR HIP RT COMPLETE AP PELVIS EXAM: XR HIP RT COMPLETE AP PELVIS CLINICAL HISTORY: R hip pain/arthritis, r/o fx, worsening arthritis. TECHNIQUE: 2D digital imaging was performed of the right hip. Three images were obtained. AP pelvis and lateral right hip views were obtained. COMPARISON: CR XR HIP RT COMPLETE AP PELVIS from 09/25/2021 FINDINGS: BONES: No acute fracture is present. No bony destructive lesion is seen. JOINTS: No dislocation present. There are degenerative changes seen in the hips bilaterally with join t space narrowing and acetabular spurring. Degenerative changes are seen in the lower lumbar spine. SOFT TISSUE: Atherosclerosis is present. IMPRESSION: 1. There are degenerative changes seen in the right hip. 2. No acute abnormality. DATA REPOSITORY: RADIATION DOSE DELIVERED:
[2022-06-04] MEDS: oxyCODONE 5 MG TAB PO (11:12)
[2022-06-04] MEDS: Acetaminophen 500 MG TAB 1000 MG PO (11:12)
[2022-06-04] MEDS: traMADol 50 MG TAB PO (15:08)
[2022-06-04] MEDS: Dexamethasone 10 MG/ML VIAL PO (15:08)
[2022-06-04] MEDS: diazePAM 5 MG TAB PO (16:11)
== END 2022-06-04 16:12 | disposition home or self-care (01) ==
PROVIDERS: Emergency Provider Physician Assistant; PCP Nurse Practitioner
DX: M25.551 Pain in right hip (principal); M16.11 Unilateral primary osteoarthritis, right hip; I11.0 Hypertensive heart disease with heart failure; I50.9 Heart failure, unspecified; R58 Hemorrhage, not elsewhere classified
CPT/HCPCS: 99283; 73502; 99284; J1100

== ENCOUNTER 2022-06-09 03:41 | Outpatient (CLI) | payer MEDICARE, SELFPAY ==
[2022-06-09 09:27] LABS: Anion Gap 5.1 mmol/L (3-11); BUN 52 mg/dL (7-18); CO2 30.9 mmol/L (21.0-32.0); CREATININE 1.5 mg/dL (0.70-1.30); Calcium 9.6 mg/dL (8.5-10.1); Chloride 94 mmol/L (98-107); Estimated GFR 47.65 (mL/min/1.73m2); Glucose 127 mg/dL (74-106); Potassium 4.5 mmol/L (3.5-5.1); Sodium 130 mmol/L (136-145)
[2022-06-09 10:00] LABS: TSH (W/Ref FT4) 7.68 uIU/mL (0.36-3.74)
[2022-06-09 10:18] LABS: FREE T4 0.88 ng/dL (0.76-1.46)
== END 2022-06-09 03:42 | disposition home or self-care (01) ==
LOC: LBO 03:41
PROVIDERS: Physician Assistant; Absent Provider Nurse Practitioner; PCP Nurse Practitioner; Referring Provider Nurse Practitioner; Visit Provider Nurse Practitioner
DX: E03.9 Hypothyroidism, unspecified (principal); I10 Essential (primary) hypertension; E11.9 Type 2 diabetes mellitus without complications
CPT/HCPCS: 36415; 80048; 84439; 84443

== ENCOUNTER 2022-06-18 03:38 | Outpatient (RCR) | payer MEDICARE, SELFPAY ==
[2022-06-18] MEDS: IRON SUCROSE COMPLEX 300 MG in Normal Saline 250 ML 176.667 MG IVPB (11:25)
[2022-06-18] MEDS: Normal Saline Flush 10 ML SYR IVP (11:27)
== END 2022-06-22 23:59 | disposition home or self-care (01) ==
LOC: INF 03:38
PROVIDERS: PCP Nurse Practitioner; Visit Provider Nurse Practitioner Acute Care
DX: D50.9 Iron deficiency anemia, unspecified (principal)
CPT/HCPCS: 96365; 96366; J1756

== ENCOUNTER 2022-06-22 09:16 | Outpatient (CLI) | payer MEDICARE, SELFPAY | END 2022-06-22 09:17 | disposition home or self-care (01) | LOC: DIORS 09:16 | PROVIDERS: PCP Nurse Practitioner; Referring Provider Nurse Practitioner; Visit Provider Student in an Organized Health Care Education/Training Program | DX: M16.11 Unilateral primary osteoarthritis, right hip (principal); I27.20 Pulmonary hypertension, unspecified; Z95.1 Presence of aortocoronary bypass graft; I50.22 Chronic systolic (congestive) heart failure; I38 Endocarditis, valve unspecified | CPT/HCPCS: 99213 ==

== ENCOUNTER 2022-07-17 00:58 | Outpatient (RCR) | payer MEDICARE, SELFPAY ==
[2022-07-17] MEDS: Normal Saline Flush 10 ML SYR IVP (10:15)
[2022-07-17] MEDS: IRON SUCROSE COMPLEX 300 MG in Normal Saline 250 ML 176.667 MG IVPB (10:16)
== END 2022-07-22 23:59 | disposition home or self-care (01) ==
LOC: INF 00:58
PROVIDERS: PCP Nurse Practitioner; Visit Provider Nurse Practitioner Acute Care
DX: D50.9 Iron deficiency anemia, unspecified (principal)
CPT/HCPCS: 96365; 96366; J1756

== ENCOUNTER 2022-07-22 09:00 | Outpatient (RCR) | payer MEDICARE, SELFPAY | END 2022-07-22 23:59 | disposition home or self-care (01) | LOC: CR 09:00 | PROVIDERS: PCP Nurse Practitioner; Referring Provider Physician Assistant; Visit Provider Internal Medicine Cardiovascular Disease | DX: I50.23 Acute on chronic systolic (congestive) heart failure (principal); Z51.89 Encounter for other specified aftercare | CPT/HCPCS: S9472 ==

== ENCOUNTER 2022-08-13 02:03 | Outpatient (RCR) | payer MEDICARE, SELFPAY ==
[2022-08-13] MEDS: IRON SUCROSE COMPLEX 300 MG in Normal Saline 250 ML 176.667 MG IVPB (11:00)
[2022-08-13] MEDS: Normal Saline Flush 10 ML SYR IVP (11:01)
== END 2022-08-22 23:59 | disposition home or self-care (01) ==
LOC: INF 02:03
PROVIDERS: PCP Nurse Practitioner; Visit Provider Nurse Practitioner Acute Care
DX: D50.9 Iron deficiency anemia, unspecified (principal)
CPT/HCPCS: 96365; 96366; J1756

== ENCOUNTER 2022-08-21 08:00 | Outpatient (RCR) | payer MEDICARE, SELFPAY | END 2022-08-22 23:59 | disposition home or self-care (01) | LOC: CR 08:00 | PROVIDERS: PCP Nurse Practitioner; Referring Provider Physician Assistant; Visit Provider Internal Medicine Cardiovascular Disease | DX: I50.20 Unspecified systolic (congestive) heart failure (principal); Z51.89 Encounter for other specified aftercare | CPT/HCPCS: S9472 ==

== ENCOUNTER 2022-09-09 09:00 | Outpatient (RCR) | payer MEDICARE, SELFPAY ==
[2022-09-10 11:08] VITALS: BP 130/79; PULSE 94
[2022-09-15 11:09] VITALS: BP 115/66; PULSE 90
== END 2022-09-22 23:59 | disposition home or self-care (01) ==
LOC: CR 09:00
PROVIDERS: PCP Nurse Practitioner; Referring Provider Physician Assistant; Visit Provider Internal Medicine Cardiovascular Disease
DX: I50.23 Acute on chronic systolic (congestive) heart failure (principal); Z51.89 Encounter for other specified aftercare
CPT/HCPCS: S9472

== ENCOUNTER 2022-09-15 10:58 | Outpatient (RCR) | payer SELFPAY ==
[2022-09-10 10:07] VITALS: BP 130/79; PULSE 92
== END 2022-09-22 23:59 | disposition home or self-care (01) ==
LOC: CR 10:58
PROVIDERS: PCP Nurse Practitioner; Visit Provider Internal Medicine Cardiovascular Disease

== ENCOUNTER 2022-10-20 02:35 | Outpatient (CLI) | payer MEDICARE, SELFPAY ==
[2022-10-20 15:06] LABS: Abs Immature Grans 0.03 10^3/uL (0.0-0.06); Absolute Basophil Count 0.04 10^3/uL (0.0-0.2); Absolute Eosinophil Count 0.06 10^3/uL (0.0-0.7); Absolute Lymphocyte Count 0.69 10^3/uL (1.2-3.4); Absolute Monocyte Count 0.65 10^3/uL (0.1-0.8); Absolute Neutrophil Count 4.16 10^3/uL (1.2-6.7); Basophils % 0.7; Eosinophils % 1.1; HCT 37.5 % (40.0-50.0); HGB 11.3 g/dL (13.5-17.5); Immature Grans % 0.5; Lymphocytes % 12.3; MCH 24.2 pg (27.0-33.0); MCHC 30.1 % (32.0-36.0); MCV 81 fL (80-95); Monocytes % 11.5; Neutrophils % 73.9; Platelet Count 228 10^3/uL (130-400); RBC 4.66 10^6/uL (4.36-5.78); RDW 18.3 % (11.8-14.1); RDW-SD 52.8 fL; WBC 5.63 10^3/uL (4.4-10.8)
[2022-10-20 16:28] LABS: Anion Gap 11.3 mmol/L (3-11); BUN 63 mg/dL (7-18); CO2 25.7 mmol/L (21.0-32.0); CREATININE 2.2 mg/dL (0.70-1.30); Calcium 9.5 mg/dL (8.5-10.1); Chloride 96 mmol/L (98-107); Estimated GFR 30.09 (mL/min/1.73m2); Ferritin 38 ng/mL (26-388); Glucose 98 mg/dL (74-106); Potassium 5.4 mmol/L (3.5-5.1); Sodium 133 mmol/L (136-145)
== END 2022-10-20 02:36 | disposition home or self-care (01) ==
PROVIDERS: PCP Nurse Practitioner; Visit Provider Physician Assistant
DX: I50.20 Unspecified systolic (congestive) heart failure (principal); R60.9 Edema, unspecified; D50.9 Iron deficiency anemia, unspecified
CPT/HCPCS: 36415; 80048; 82728; 85025

== ENCOUNTER 2022-11-19 10:13 | Outpatient (RCR) | payer SELFPAY ==
[2022-10-21 00:09] VITALS: BP 123/63; PULSE 100
[2022-11-17 10:22] VITALS: BP 121/61; PULSE 92
[2022-11-19 10:14] VITALS: BP 112/64; PULSE 95; O2SAT 93
[2022-11-24 10:09] VITALS: BP 110/67; PULSE 97
== END 2022-11-20 23:59 | disposition home or self-care (01) ==
LOC: CR 10:13
PROVIDERS: PCP Nurse Practitioner; Visit Provider Internal Medicine Cardiovascular Disease

== ENCOUNTER 2022-11-26 16:00 | Outpatient (REF) | payer MEDICARE, SELFPAY ==
[2022-11-26 19:48] LABS: TSH (W/Ref FT4) 3.44 uIU/mL (0.36-3.74)
== END 2022-11-26 16:01 | disposition home or self-care (01) ==
LOC: LBN 16:00
PROVIDERS: PCP Nurse Practitioner; Referring Provider Nurse Practitioner; Visit Provider Nurse Practitioner
DX: E03.9 Hypothyroidism, unspecified (principal); D64.9 Anemia, unspecified
CPT/HCPCS: 84443

== ENCOUNTER 2022-12-01 01:35 | Outpatient (RCR) | payer MEDICARE, SELFPAY ==
[2022-12-01] MEDS: IRON SUCROSE COMPLEX 300 MG in Normal Saline 250 ML 176.667 MG IVPB (11:19)
[2022-12-01] MEDS: Normal Saline Flush 10 ML SYR IVP (11:20)
== END 2022-12-20 23:59 | disposition home or self-care (01) ==
LOC: INF 01:35
PROVIDERS: PCP Nurse Practitioner; Visit Provider Nurse Practitioner Family
DX: D50.9 Iron deficiency anemia, unspecified (principal)
CPT/HCPCS: 96365; 96366; J1756

== ENCOUNTER 2022-12-15 10:08 | Outpatient (RCR) | payer SELFPAY ==
[2022-11-21 00:18] VITALS: BP 112/64; PULSE 95
[2022-11-26 10:08] VITALS: BP 127/57; PULSE 99; O2SAT 94
[2022-12-08 10:06] VITALS: BP 104/56; PULSE 86
[2022-12-15 10:15] VITALS: BP 122/72; PULSE 94
== END 2022-12-20 23:59 | disposition home or self-care (01) ==
LOC: CR 10:08
PROVIDERS: PCP Nurse Practitioner; Visit Provider Internal Medicine Cardiovascular Disease
DX: R69 Illness, unspecified (principal)

== ENCOUNTER 2022-12-15 14:07 | Outpatient (CLI) | payer MEDICARE, SELFPAY ==
--- NOTE | 2022-12-15 14:00 | DI.RAD_ITS ---
Exam(s) XR SHOULDER LT COMPLETE 2+V EXAM: XR SHOULDER LT COMPLETE 2+V CLINICAL HISTORY: Left shoulder pain. TECHNIQUE: 2D digital imaging was performed of the left shoulder. Two images were obtained. AP and axillary views were obtained. COMPARISON: CR XR PORTABLE CHEST AP from 06/12/2021 FINDINGS: BONES: No acute fracture is present. No bony destructive lesion is seen. The bones appear osteopenic. JOINTS: No dislocation present. Degenerative changes are seen at both the glenohumeral and the acromi oclavicular joint. SOFT TISSUE: The patient is status post CABG. There is a cardiac pacing device in place. Sternal wi res are in place. IMPRESSION: Degenerative changes of the shoulder. DATA REPOSITORY: RADIATION DOSE DELIVERED:
== END 2022-12-15 14:08 | disposition home or self-care (01) ==
LOC: DIORS 14:07
PROVIDERS: PCP Nurse Practitioner; Referring Provider Nurse Practitioner; Visit Provider Student in an Organized Health Care Education/Training Program
DX: M19.012 Primary osteoarthritis, left shoulder; Z95.0 Presence of cardiac pacemaker
CPT/HCPCS: 20610; 99213; 73030; J1030

== ENCOUNTER 2023-01-26 03:01 | Outpatient (RCR) | payer MEDICARE, SELFPAY ==
[2023-01-26] MEDS: IRON SUCROSE COMPLEX 300 MG in Normal Saline 250 ML 176.667 MG IVPB (11:18)
[2023-01-26] MEDS: Normal Saline Flush 10 ML SYR IVP (11:18)
== END 2023-02-19 23:59 | disposition home or self-care (01) ==
LOC: INF 03:01
PROVIDERS: PCP Nurse Practitioner; Visit Provider Nurse Practitioner Family
DX: D50.9 Iron deficiency anemia, unspecified (principal)
CPT/HCPCS: 96365; 96366; J1756

== ENCOUNTER 2023-03-23 01:57 | Outpatient (RCR) | payer MEDICARE, SELFPAY ==
[2023-03-23] MEDS: Normal Saline Flush 10 ML SYR IVP (11:18)
[2023-03-23] MEDS: IRON SUCROSE COMPLEX 300 MG in Normal Saline 250 ML 176.667 MG IVPB (11:19)
[2023-03-23 11:23] LABS: HCT 33.5 % (40.0-50.0); HGB 10.9 g/dL (13.5-17.5); MCH 30.1 pg (27.0-33.0); MCHC 32.5 % (32.0-36.0); MCV 93 fL (80-95); MPV 10.3 fL (8.0-11.0); Platelet Count 149 10^3/uL (130-400); RBC 3.62 10^6/uL (4.36-5.78); RDW 15.5 % (11.8-14.1); RDW-SD 51.8 fL; WBC 5.77 10^3/uL (4.4-10.8)
[2023-03-23 11:49] LABS: Iron 44 ug/dL (65-175); Total Iron Binding Capacity 377 ug/dL (250-450); Transferrin Sat 12 % (20-55)
== END 2023-04-22 23:59 | disposition home or self-care (01) ==
LOC: INF 01:57
PROVIDERS: Nurse Practitioner Adult Health; PCP Nurse Practitioner; Visit Provider Nurse Practitioner Family
DX: D50.9 Iron deficiency anemia, unspecified (principal)
CPT/HCPCS: 85027; 96365; 96366; 83540; 83550; J1756

== ENCOUNTER 2023-06-06 11:41 | Outpatient (REF) | payer MEDICARE, SELFPAY ==
[2023-06-06 12:10] LABS: Anion Gap 9.5 mmol/L (3-11); BUN 33 mg/dL (7-18); CO2 30.5 mmol/L (21.0-32.0); CREATININE 1.6 mg/dL (0.70-1.30); Calcium 9.7 mg/dL (8.5-10.1); Chloride 93 mmol/L (98-107); Estimated GFR 43.83 (mL/min/1.73m2); Glucose 98 mg/dL (74-106); Magnesium 2.1 mg/dL (1.8-2.4); Sodium 133 mmol/L (136-145)
[2023-06-06 12:21] LABS: Potassium 2.8 mmol/L (3.5-5.1)
== END 2023-06-06 11:42 | disposition home or self-care (01) ==
LOC: LBN 11:41
PROVIDERS: PCP Nurse Practitioner; Visit Provider Student in an Organized Health Care Education/Training Program
DX: D64.9 Anemia, unspecified (principal); I50.20 Unspecified systolic (congestive) heart failure; I27.20 Pulmonary hypertension, unspecified; I25.5 Ischemic cardiomyopathy
CPT/HCPCS: 80048; 83735